=== PATIENT | female | born 1965 | race Caucasian/White ===

== ENCOUNTER 2020-05-22 17:41 | Emergency (ER) | payer OTHER ==
[2020-05-22 20:57] LABS: Absolute Lymphocytes (CBC) 2.2 K/uL (0.7-4.9); Basophils % 0.5 % (0-1.3); Lymphocytes % 23.6 % (15.3-44.8); MPV 8.8 fL (7.6-11.3); RBC Red Blood Cell Count 4.51 M/uL (3.86-4.86)
[2020-05-22 21:12] LABS: Albumin 3.7 g/dL (3.4-5.0); Bilirubin Direct 0.1 mg/dL (0-0.2); Bilirubin Total 0.5 mg/dL (0.2-1.0); Potassium 3.8 mmol/L (3.5-5.1); Protein, Total 7.9 g/dL (6.4-8.2)
[2020-05-22] MEDS ORDERED: MORPHINE 4 MG/ML SYR ONE (21:16)
[2020-05-22] MEDS ORDERED: NA CHLORIDE 0.9% 1,000 ML ONE (21:16)
[2020-05-22] MEDS ORDERED: ONDANSETRON 4 MG/2 ML VIAL ONE (21:16)
[2020-05-22 23:12] LABS: Urine Bacteria <20 /HPF (<20); Urine Mucus 1+ /HPF (NONE SEEN); Urine RBC <5 /HPF (NONE SEEN)
--- NOTE | 2020-05-22 23:28 | ER ---
Nurse's Notes [facility] Name: Mar Finney Age: 55 yrs Sex: Female : 1965 Arrival Date: 05/22/2020 Time: 17:43 Bed 23 Private MD: Diagnosis: Unspecified abdominal pain Presentation: 05/22 17:47 Chief complaint: Patient states: Pain underneath my ribs cage on the R side, radiating ca1 to the back, hurts when I breathe deep. Started this morning. Pain has progressed throughout the day. Denies N/V/D. Denies fever. Reports urinary urgency and frequency. Denies burning with urination. Coronavirus screen: Client denies travel out of the [place] in the last 14 days. At this time, the client does not indicate any symptoms associated with coronavirus-19. Ebola Screen: Patient negative for fever greater than or equal to 101.5 degrees Fahrenheit, and additional compatible Ebola Virus Disease symptoms Patient denies exposure to infectious person. Patient denies travel to an Ebola-affected area in the 21 days before illness onset. No symptoms or risks identified at this time. Initial Sepsis Screen: Does the patient meet any 2 criteria? No. Patient's initial sepsis screen is negative. Does the patient have a suspected source of infection? No. Patient's initial sepsis screen is negative. Risk Assessment: Do you want to hurt yourself or someone else? Patient reports no desire to harm self or others. Onset of symptoms was May 22, 2020. 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 - Social history:: Smoking status: Patient denies any tobacco usage or history of. Screenin:25 Abuse screen: Denies threats or abuse. Nutritional screening: No deficits noted. fu Tuberculosis screening: No symptoms or risk factors identified. Fall Risk None identified. Assessment: 20:10 General: Appears in no apparent distress. Behavior is calm, cooperative, appropriate fu for age, Denies fever, feeling ill, fatigue, chills. Pain: Complains of pain in right lateral anterior chest Pain radiates to back Pain currently is 5 out of 10 on a pain scale. Pain began this morning Aggravated by breathing. Neuro: Level of Consciousness is awake, alert, obeys commands, Oriented to person, place, time, situation, Pathology Supervisor are equal bilaterally Moves all extremities. Gait is steady, Speech is normal, Facial symmetry appears normal. Cardiovascular: Denies lightheadedness, nausea, vomiting, Capillary refill < 3 seconds. Respiratory: Reports pain with respiration. GI: Bowel sounds present X 4 quads. Abd is soft Patient currently denies diarrhea, nausea, vomiting. : No signs and/or symptoms were reported regarding the genitourinary system. EENT: No signs and/or symptoms were reported regarding the EENT system. Derm: No signs and/or symptoms reported regarding the dermatologic system. Musculoskeletal: No signs and/or symptoms reported regarding the musculoskeletal system. Vital Signs: 17:47 BP 183 / 103; Pulse 93; Resp 16 S; Temp 97.6(TE); Pulse Ox 98% on R/A; Weight 135.17 ca1 kg; Height 5 ft. 7 in. (170.18 cm) (R); Pain 5/10; 20:30 BP 151 / 70; Pulse 86; Resp 16; Pulse Ox 98% on R/A; Pain 5/10; fu 21:09 BP 133 / 73; Pulse 86; Resp 16; Pulse Ox 98% on R/A; Pain 5/10; fu 22:00 BP 130 / 64; Pulse 87; Resp 18; Temp 98.1(O); Pulse Ox 99% on R/A; Pain 5/10; fu 23:15 BP 132 / 69; Pulse 82; Resp 16; Pulse Ox 100% on R/A; Pain 2/10; fu 17:47 Body Mass Index 46.67 (135.17 kg, 170.18 cm) ca1 ED Course: 17:43 Patient arrived in ED. ag5 17:50 Triage completed. ca1 17:53 Arm band placed on right wrist. ca1 19:58 Kamaljit Butler RN is Primary Nurse. fu 19:58 Albert Gallardo NP is PHCP. pm1 19:58 Alvaro Hendricks MD is Attending Physician. pm1 20:30 Inserted saline lock: 20 gauge in right forearm, using aseptic technique. Blood fu collected. 20:36 Troponin (emerg Dept Use Only) Sent. fu 20:36 Basic Metabolic Panel Sent. fu 20:37 CBC with Diff Sent. fu 20:37 Hepatic Function Sent. fu 20:37 Lipase Sent. fu 21:25 Patient has correct armband on for positive identification. Bed in low position. Call fu light in reach. Side rails up X2. 21:25 advanced practice nurse on. Pulse ox on. NIBP on. fu 21:55 CT Abd/Pelvis - IV Contrast Only In Process Unspecified. EDMS 22:36 Urine Microscopic Only Sent. fu 23:43 No provider procedures requiring assistance completed. fu 23:43 IV discontinued, bleeding controlled, Pressure dressing applied. fu Administered Medications: 21:11 Drug: Zofran (Ondansetron) 4 mg Route: IVP; Site: right forearm; fu 21:46 Follow up: Response: No adverse reaction fu 21:11 Drug: NS 0.9% 1000 ml Route: IV; Rate: 1000 ml; Site: right forearm; fu 21:18 Drug: morphine 4 mg Route: IVP; Site: right forearm; fu 21:46 Follow up: Response: Pain is decreased fu 23:36 Drug: TORadol - Ketorolac 15 mg Route: IVP; Site: right forearm; fu Outcome: 23:27 Discharge ordered by . pm1 23:51 Discharged to home ambulatory. fu 23:51 Condition: good 23:51 Discharge instructions given to patient, Instructed on discharge instructions, follow up and referral plans. Demonstrated understanding of instructions, follow-up care, Prescriptions given X 1. 23:52 Patient left the ED. fu Signatures: Dispatcher [employer] EDMS Albert Gallardo NP GRIDCAP MACHINE OPERATOR pm1 Kamaljit Butler RN RN fu [place], RN RN ca1 Vicky Cheng ag5 Corrections: (The following items were deleted from the chart) 17:51 17:47 Acuity: TIMA 3 ca1 ca1 21:20 21:19 Inserted saline lock: 20 gauge in right forearm, using aseptic technique. Blood fu collected. fu
--- NOTE | 2020-05-22 23:28 | EDPHYS ---
Physician Documentation [facility] Name: Mar Finney Age: 55 yrs Sex: Female : 1965 Arrival Date: 05/22/2020 Time: 17:43 Bed 23 Private MD: ED Physician Alvaro Hendricks HPI: 05/22 20:06 This 55 yrs old Female presents to ER via Ambulatory with complaints of pm1 Abdominal Pain. 20:06 The patient presents with abdominal pain in the right upper quadrant. Onset: The pm1 symptoms/episode began/occurred this morning. The symptoms radiate to right back. Associated signs and symptoms: Pertinent positives: dysuria, Pertinent negatives: nausea, vomiting, and diarrhea, chest pain, fever, shortness of breath. The symptoms are described as sharp. Modifying factors: the symptoms are aggravated by breathing deeply. Severity of pain: in the emergency department the pain is actually worse. The patient has not experienced similar symptoms in the past. The patient has not recently seen a physician. 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 - Social history:: Smoking status: Patient denies any tobacco usage or history of. ROS: 20:06 Constitutional: Negative for fever, chills, and weight loss, Neck: Negative for injury, pm1 pain, and swelling, Cardiovascular: Negative for chest pain, palpitations, and edema, Respiratory: Negative for shortness of breath, cough, wheezing, and pleuritic chest pain. 20:06 MS/Extremity: Negative for injury and deformity, Skin: Negative for injury, rash, and discoloration. 20:06 Neuro: Negative for headache, weakness, numbness, tingling, and seizure. 20:06 Abdomen/GI: Positive for abdominal pain, of the right upper quadrant, Negative for nausea, vomiting, and diarrhea, constipation. 20:06 : Positive for urinary frequency. Exam: 20:06 Constitutional: This is a well developed, well nourished patient who is awake, alert, pm1 and in no acute distress. Head/Face: Normocephalic, atraumatic. 20:06 Skin: Warm, dry with normal turgor. Normal color with no rashes, no lesions, and no evidence of cellulitis. MS/ Extremity: Pulses equal, no cyanosis. Neurovascular intact. Full, normal range of motion. 20:06 Cardiovascular: Rate: normal, Rhythm: regular, Pulses: no pulse deficits are appreciated. 20:06 Respiratory: Exam negative for acute changes, respiratory distress, shortness of breath. 20:06 Abdomen/GI: Inspection: obese Palpation: soft, in all quadrants, mild abdominal tenderness, in the right upper quadrant. 20:06 Back: pain, that is mild, of the right mid back. 20:06 Neuro: Exam negative for acute changes, Orientation: is normal, Mentation: is normal, Motor: is normal, moves all fours. Vital Signs: 17:47 BP 183 / 103; Pulse 93; Resp 16 S; Temp 97.6(TE); Pulse Ox 98% on R/A; Weight 135.17 ca1 kg; Height 5 ft. 7 in. (170.18 cm) (R); Pain 5/10; 20:30 BP 151 / 70; Pulse 86; Resp 16; Pulse Ox 98% on R/A; Pain 5/10; fu 21:09 BP 133 / 73; Pulse 86; Resp 16; Pulse Ox 98% on R/A; Pain 5/10; fu 22:00 BP 130 / 64; Pulse 87; Resp 18; Temp 98.1(O); Pulse Ox 99% on R/A; Pain 5/10; fu 23:15 BP 132 / 69; Pulse 82; Resp 16; Pulse Ox 100% on R/A; Pain 2/10; fu 17:47 Body Mass Index 46.67 (135.17 kg, 170.18 cm) ca1 MDM: 19:58 Patient medically screened. pm1 23:26 Data reviewed: vital signs. Data interpreted: Pulse oximetry: on room air is 98 %. pm1 Interpretation: normal. Counseling: I had a detailed discussion with the patient and/or guardian regarding: the historical points, exam findings, and any diagnostic results supporting the discharge/admit diagnosis, lab results, radiology results, the need for outpatient follow up, to return to the emergency department if symptoms worsen or persist or if there are any questions or concerns that arise at home. 05/22 19:59 Order name: Basic Metabolic Panel; Complete Time: 21:19 pm05/22 19:59 Order name: CBC with Diff; Complete Time: 21:19 pm05/22 19:59 Order name: Hepatic Function; Complete Time: 21:19 pm05/22 19:59 Order name: Lipase; Complete Time: 21:19 pm05/22 20:08 Order name: Troponin (emerg Dept Use Only); Complete Time: 21:19 pm05/22 22:27 Order name: Urine Microscopic Only; Complete Time: 23:17 pm1 05/22 19:59 Order name: IV Saline Lock; Complete Time: 20:37 pm1 05/22 19:59 Order name: CT Abd/Pelvis - IV Contrast Only pm1 05/22 20:08 Order name: EKG; Complete Time: 20:09 pm05/22 22:35 Order name: Urine Dipstick--Ancillary (enter results); Complete Time: 00:00 tt3 05/22 19:59 Order name: Labs collected and sent; Complete Time: 20:37 pm05/22 20:08 Order name: EKG - Nurse/Tech; Complete Time: 21:18 pm05/22 22:27 Order name: Urine Dipstick-Ancillary (obtain specimen); Complete Time: 22:36 pm1 Administered Medications: 21:11 Drug: Zofran (Ondansetron) 4 mg Route: IVP; Site: right forearm; fu 21:46 Follow up: Response: No adverse reaction fu 21:11 Drug: NS 0.9% 1000 ml Route: IV; Rate: 1000 ml; Site: right forearm; fu 21:18 Drug: morphine 4 mg Route: IVP; Site: right forearm; fu 21:46 Follow up: Response: Pain is decreased fu 23:36 Drug: TORadol - Ketorolac 15 mg Route: IVP; Site: right forearm; fu Disposition: 05/23 07:11 Co-signature as Attending Physician, Alvaro Hendricks MD. 7 Disposition: 05/22/20 23:27 Discharged to Home. Impression: Unspecified abdominal pain. - Condition is Stable. - Discharge Instructions: Abdominal Pain, Adult. - Prescriptions for Bentyl 20 mg Oral Tablet - take 1 tablet by ORAL route every 6 hours As needed; 20 tablet. - Medication Reconciliation Form, Thank You Letter, Antibiotic Education, Prescription Opioid Use form. - Follow up: Emergency Department; When: As needed; Reason: Worsening of condition. Follow up: Private Physician; When: 2 - 3 days; Reason: Recheck today's complaints, Continuance of care, Re-evaluation by your physician. - Problem is new. - Symptoms have improved. Signatures: Dispatcher [employer] EDMS Albert Gallardo NP SOFTWARE SALES CONSULTANT pm1 Kamaljit Butler RN RN Marimar Park RN RN [facility] Alvaro Hendricks MD MD [facility] Corrections: (The following items were deleted from the chart) 05/22 23:52 23:27 05/22/2020 23:27 Discharged to Home. Impression: Unspecified abdominal pain. fu Condition is Stable. Forms are Medication Reconciliation Form, Thank You Letter, Antibiotic Education, Prescription Opioid Use. Follow up: Emergency Department; When: As needed; Reason: Worsening of condition. Follow up: Private Physician; When: 2 - 3 days; Reason: Recheck today's complaints, Continuance of care, Re-evaluation by your physician. Problem is new. Symptoms have improved. pm1
[2020-05-22] MEDS ORDERED: KETOROLAC 30 MG/ML INJ ONE (23:42)
[2020-05-22 23:47] LABS: Urine Blood NEGATIVE (NEG); Urine Glucose NEGATIVE (NEG); Urine Protein NEGATIVE (NEG); Urine Specific Gravity 1.025 (1.005-1.030); Urine pH 5.5 (5.0-7.0)
[2020-05-22 23:57] VITALS: TEMP 97.6; O2SAT 98
[2020-05-22 23:59] VITALS: BP 133/73
--- NOTE | 2020-05-23 07:30 | EKG ---
Test Date: 2020-05-22 Test Time: 21:05:21 Child Advocate: KATHIE MEASUREMENT RESULTS: Intervals: Rate: 84 VT: 154 QRSD: 86 QT: 370 QTc: 437 [place]: P: 30 VT: 154 QRS: 14 T: 18 INTERPRETIVE STATEMENTS: Normal sinus rhythm Normal ECG No previous ECG available for comparison Electronically Signed On 05-23-20 07:29:56 SECURED ENTRANCE MONITOR by Kam Cotton
--- NOTE | 2020-05-23 15:57 | RAD REPORT ---
EXAM DESCRIPTION: CT ABDOMEN AND PELVIS WITH CONTRAST CLINICAL HISTORY: ABD PAIN COMPARISON: Right upper quadrant pain. TECHNIQUE: CT of the abdomen and pelvis performed following IV administration of iodinated contras t. FINDINGS: Lung Bases: The visualized lung bases are clear. Bones: Multilevel degenerative endplate spondylosis and facet arthropathy visualized spine. Abdomen: Liver: The liver has normal size and density. No intrahepatic biliary dilatation. Gallbladder: No calcified gallstones. Spleen, Pancreas, and Adrenal Glands: The spleen, pancreas, and adrenal glands are unremarkable. Kidneys: No hydronephrosis or obstructing calculus. Left peripelvic cysts. Vasculature: The aorta and IVC have normal caliber and position. The portal vein is patent. The pro ximal visceral and renal arteries are patent. Stomach: The stomach and duodenum have normal course. Other: No free intraperitoneal air. No free fluid or lymphadenopathy. Pelvis: Bladder: Urinary bladder is unremarkable. Bowel: No dilated loops of large or small bowel. Moderate amount of stool. Appendix: Normal appendix. Pelvis: Uterus is not enlarged. IMPRESSION: 1. No acute inflammatory or obstructive process identified. This exam was performed according to our departmental dose-optimization program, which includes autom ated exposure control, adjustment of the mA and/or kV according to patient size and/or use of iterati ve reconstruction technique. Electronically signed by: Alli Blunt 05/22/2020 10:31 PM ENTRY LEVEL ADMINISTRATIVE ASSISTANT Due to temporary technical issues with the PACS/Fluency reporting system, reports are being signed by the in house radiologists without review as a courtesy to insure prompt reporting. The interpreting radiologist is fully responsible for the content of the report.
== END 2020-05-22 23:52 | disposition home or self-care (01) ==
LOC: ER 17:41
DX: R10.11 Right upper quadrant pain (principal); I10 Essential (primary) hypertension; J45.909 Unspecified asthma, uncomplicated
CPT/HCPCS: 93005; 85025; 80048; 36415; 80076; 84484; 83690; 74177; 96375; 96374; 99284; Q9967; J7030; J2405; 81003; 81015

== ENCOUNTER 2021-11-12 06:33 | Inpatient (IN) | payer OTHER ==
--- NOTE | 2021-11-12 08:40 | RAD REPORT ---
EXAM DESCRIPTION: RAD - Chest Single View - 11/12/2021 8:20 am CLINICAL HISTORY: Chest pain Chest pain. COMPARISON: No comparisons FINDINGS: Portable technique limits examination quality. The lungs are grossly clear. The heart is mildly prominent in size. No displaced fractures.
[2021-11-12 08:55] LABS: Protime INR 1.01
[2021-11-12 08:58] LABS: Absolute Lymphocytes (CBC) 1.3 K/uL (0.7-4.9); Hematocrit 41.3 % (36.0-45.0); Lymphocytes % 9.9 % (15.3-44.8); MCV 94.7 fL (80-100); MPV 8.4 fL (7.6-11.3); RBC Red Blood Cell Count 4.36 M/uL (3.86-4.86)
[2021-11-12 08:59] LABS: Albumin 3.4 g/dL (3.4-5.0); Bilirubin Direct 0.2 mg/dL (0-0.2); Bilirubin Total 0.5 mg/dL (0.2-1.0); Magnesium 1.9 mg/dL (1.8-2.4); Potassium 3.8 mmol/L (3.5-5.1); Protein, Total 7.1 g/dL (6.4-8.2); Troponin High Sensitivity 3.3 pg/mL (<58.9)
[2021-11-12] MEDS ORDERED: NA CHLORIDE 0.9% 1,000 ML ONE (09:34)
[2021-11-12] MEDS ORDERED: ONDANSETRON 4 MG/2 ML VIAL ONE ×2 (09:59→14:36)
[2021-11-12] MEDS ORDERED: MORPHINE 4 MG/ML SYR ONE ×2 (09:59→10:51)
[2021-11-12] MEDS ORDERED: NA CHLORIDE 0.9% 100 ML ONE (10:12)
[2021-11-12] MEDS ORDERED: PIPERACIL/TAZO 3.375 GM VIAL IV ONE (10:13)
--- NOTE | 2021-11-12 10:29 | RAD REPORT ---
EXAM DESCRIPTION: CTAbdomen Pelvis W Contrast - 11/12/2021 10:06 am CLINICAL HISTORY: Abdominal pain. Abdominal pain, acute, nonlocalized COMPARISON: 05/22/2020 TECHNIQUE: Biphasic CT imaging of the abdomen and pelvis was performed with 100 ml non-ionic IV cont rast. All CT scans are performed using dose optimization technique as appropriate and may include automated exposure control or mA/KV adjustment according to patient size. FINDINGS: The lung bases are clear. The liver, spleen, pancreas, adrenal glands and kidneys are within normal limits. Mild gallbladder di stention. No bowel obstruction, free air, free fluid or abscess. Moderate stool throughout the colon. The appen randy is normal. No evidence of significant lymphadenopathy. No suspicious bony findings. IMPRESSION: No acute intra-abdominal or pelvic finding. Mild gallbladder distention.
--- NOTE | 2021-11-12 10:48 | ER ---
Nurse's Notes [facility] Name: Mar Finney Age: 56 yrs Sex: Female : 1965 Arrival Date: 11/12/2021 Time: 06:36 Bed 18 Private MD: Diagnosis: Epigastric abdominal tenderness;Acute cholecystitis;Other cholelithiasis without obstruction;Elevated white blood cell count;Obesity, unspecified Presentation: 11/12 07:25 Chief complaint: Patient states: Abd pain that began yesterday. After eating dinner, pt ss reports upper abd pain became worse and radiates around to her back. + nausea. Coronavirus screen: Client denies travel out of the [place] in the last 14 days. Ebola Screen: Patient denies exposure to infectious person. Patient denies travel to an Ebola-affected area in the 21 days before illness onset. Initial Sepsis Screen: Does the patient meet any 2 criteria? No. Patient's initial sepsis screen is negative. Does the patient have a suspected source of infection? No. Patient's initial sepsis screen is negative. Risk Assessment: Do you want to hurt yourself or someone else? Patient reports no desire to harm self or others. Onset of symptoms was November 11, 2021. 07:25 Method Of Arrival: Ambulatory ss 07:25 Acuity: TIMA 3 ss Triage Assessment: 14:56 General: Appears in no apparent distress. Behavior is calm, cooperative, appropriate ll1 for age. GI: Abdomen is flat, Bowel sounds present X 4 quads. Reports upper abdominal pain. 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 - Social history:: Smoking status: Patient denies any tobacco usage or history of. - Family history:: not pertinent. Screenin:55 Abuse screen: Denies threats or abuse. Nutritional screening: No deficits noted. ll1 Tuberculosis screening: No symptoms or risk factors identified. Fall Risk Total Fung Fall Scale indicates No Risk (0-24 pts). Assessment: 10:57 Pain: Complains of pain in abdomen Pain radiates to back Pain currently is 7 out of 10 kr3 on a pain scale. 12:00 Reassessment: No changes from previously documented assessment. Patient and/or family ll1 updated on plan of care and expected duration. Pain level reassessed. Patient is alert, oriented x 3, equal unlabored respirations, skin warm/dry/pink. 13:00 Reassessment: No changes from previously documented assessment. Patient and/or family ll1 updated on plan of care and expected duration. Pain level reassessed. Patient is alert, oriented x 3, equal unlabored respirations, skin warm/dry/pink. 14:00 Reassessment: No changes from previously documented assessment. Patient and/or family ll1 updated on plan of care and expected duration. Pain level reassessed. Patient is alert, oriented x 3, equal unlabored respirations, skin warm/dry/pink. 15:00 Reassessment: No changes from previously documented assessment. Patient and/or family ll1 updated on plan of care and expected duration. Pain level reassessed. Patient is alert, oriented x 3, equal unlabored respirations, skin warm/dry/pink. Patient states feeling better. 15:20 GI: kr3 Vital Signs: 07:25 BP 184 / 82; Pulse 63; Resp 17; Temp 97.0(TE); Pulse Ox 100% on R/A; Weight 90.72 kg; ss Height 5 ft. 6 in. (167.64 cm); Pain 9/10; 09:30 BP 182 / 79; Pulse 49; Resp 16; Pulse Ox 100% on R/A; kr3 10:30 BP 180 / 60; Pulse 45; Resp 16; Pulse Ox 99% on R/A; kr3 14:56 BP 158 / 77; Pulse 61; Resp 16; Temp 98.6; Pulse Ox 99% on R/A; Pain 3/10; ll1 07:25 Body Mass Index 32.28 (90.72 kg, 167.64 cm) ED Course: 06:36 Patient arrived in ED. ja2 07:25 Aleksandr Jaffe MD is Attending Physician. tio 07:26 Triage completed. ss 07:26 Arm band placed on right wrist. ss 08:21 XRAY Chest (1 view) In Process Unspecified. EDMS 08:30 Initial lab(s) drawn, by me, sent to lab. COVID swab sent to lab. Inserted saline lock: dh3 20 gauge in left antecubital area, using aseptic technique. Blood collected. 08:40 SARS-COV-2 RT PCR (Document "Date of Onset" if Symptomatic) Sent. 3 09:21 EKG done, by ED staff, reviewed by Aleksandr Jaffe MD. 3 09:24 Patient placed in an exam room, on a stretcher. ll1 09:24 Patient has correct armband on for positive identification. Bed in low position. Call 1 light in reach. Client placed on continuous cardiac and pulse oximetry monitoring. NIBP monitoring applied. site monitor on. 09:31 Tahira Dubon, RN is Primary Nurse. kr3 10:07 CT Abd/Pelvis - IV Contrast Only In Process Unspecified. EDMS 10:46 Aj Atkins is Hospitalizing Provider. [facility] 12:10 US Abdomen Limited In Process Unspecified. EDMS 14:55 No provider procedures requiring assistance completed. Patient admitted, IV remains in ll1 place. Administered Medications: 09:35 Drug: NS 0.9% 500 ml Route: IV; Rate: bolus; Site: left antecubital; kr3 12:10 Follow up: Response: No adverse reaction; IV Status: Completed infusion; IV Intake: ll1 500ml 09:56 Drug: morphine 4 mg Route: IVP; Infused Over: 4 mins; Site: left antecubital; ll1 10:26 Follow up: Response: No adverse reaction; RASS: Alert and Calm (0) kr3 09:57 Drug: Zofran (Ondansetron) 4 mg Route: IVP; Site: left antecubital; ll1 10:27 Follow up: Response: No adverse reaction kr3 10:05 Drug: NS 0.9% 1000 ml Route: IV; Rate: 125 ml/hr; Site: left antecubital; kr3 15:01 Follow up: Response: No adverse reaction; IV Status: Completed infusion; IV Intake: ll1 500ml 10:20 Drug: Zosyn (piperacillin-tazobactam) 3.375 grams Route: IVPB; Infused Over: 60 mins; kr3 Site: left antecubital; 12:03 Follow up: Response: No adverse reaction; IV Status: Completed infusion; IV Intake: kr3 100ml 10:53 Drug: morphine 4 mg Route: IVP; Infused Over: 4 mins; Site: left antecubital; kr3 12:03 Follow up: Response: No adverse reaction; RASS: Alert and Calm (0) kr3 11:58 Drug: Dilaudid (HYDROmorphone) 1 mg Route: IVP; Site: left antecubital; kr3 15:01 Follow up: Response: No adverse reaction; Pain is decreased; RASS: Alert and Calm (0) ll1 Medication: 09:24 VIS not applicable for this client. ll1 Intake: 12:03 IV: 100ml; Total: 100ml. kr3 12:10 IV: 500ml; Total: 600ml. ll1 15:01 IV: 500ml; Total: 1100ml. ll1 Outcome: 10:47 Decision to Hospitalize by Provider. tio 15:23 Admitted to Med/surg accompanied by tech, via wheelchair, room 206, Report called to davidson Miller RN 15:23 Condition: stable 15:23 Instructed on the need for admit. 16:02 Patient left the ED. ll1 Signatures: Dispatcher [employer] EDMS Aleksandr Jaffe MD MD cha Smirch, Shelby, RN RN Alyson Martin 3 Gino Lawson RN RN ll1 Doris Bosch Kelley, RN RN kr3 Corrections: (The following items were deleted from the chart) 11:04 09:15 BP 180 / 60; Pulse 45bpm; Resp 16bpm; Pulse Ox 99% RA; kr3 kr3 11:06 09:15 BP 182 / 79; Pulse 49bpm; Resp 16bpm; Pulse Ox 100% RA; kr3 kr3 15:02 14:56 BP 158 / 77; Pulse 48bpm; Resp 16bpm; Pulse Ox 99% RA; Temp 98.6F; Pain 3/10; ll1 ll1
--- NOTE | 2021-11-12 10:48 | EDPHYS ---
Physician Documentation [facility] Name: Mar Finney Age: 56 yrs Sex: Female : 1965 Arrival Date: 11/12/2021 Time: 06:36 Bed 18 Private MD: ED Physician Aleksandr Jaffe HPI: 11/12 10:00 This 56 yrs old Female presents to ER via Ambulatory with complaints of tio Abdominal Pain, Back Pain, Nausea. 10:00 The patient presents with pain that is acute, with no known mechanism of injury. The tio symptoms are located in the left mid back and right mid back. Onset: The symptoms/episode began/occurred last night. The pain radiates to the left mid back and right mid back. Associated signs and symptoms: Pertinent positives: abdominal pain, vomiting. The problem was sustained from unknown cause. Modifying factors: The patient symptoms are alleviated by nothing, the patient symptoms are aggravated by food. Severity of symptoms: At their worst the symptoms were moderate, in the emergency department the symptoms are unchanged. The patient has not experienced similar symptoms in the past. 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 - Social history:: Smoking status: Patient denies any tobacco usage or history of. - Family history:: not pertinent. ROS: 10:00 Constitutional: Negative for fever, chills, and weight loss, Eyes: Negative for injury, tio pain, redness, and discharge, ENT: Negative for injury, pain, and discharge, Neck: Negative for injury, pain, and swelling, Cardiovascular: Negative for chest pain, palpitations, and edema, Respiratory: Negative for shortness of breath, cough, wheezing, and pleuritic chest pain, Back: Negative for injury and pain, : Negative for injury, bleeding, discharge, and swelling, MS/Extremity: Negative for injury and deformity, Skin: Negative for injury, rash, and discoloration, Neuro: Negative for headache, weakness, numbness, tingling, and seizure, Psych: Negative for depression, anxiety, suicide ideation, homicidal ideation, and hallucinations, Allergy/Immunology: Negative for hives, rash, and allergies, Endocrine: Negative for neck swelling, polydipsia, polyuria, polyphagia, and marked weight changes, Hematologic/Lymphatic: Negative for swollen nodes, abnormal bleeding, and unusual bruising. 10:00 Abdomen/GI: Positive for abdominal pain, of the epigastric area, right upper quadrant and left upper quadrant. Exam: 10:00 Constitutional: This is a well developed, well nourished patient who is awake, alert, tio and in no acute distress. Head/Face: Normocephalic, atraumatic. Eyes: Pupils equal round and reactive to light, extra-ocular motions intact. Lids and lashes normal. Conjunctiva and sclera are non-icteric and not injected. Cornea within normal limits. Periorbital areas with no swelling, redness, or edema. ENT: Nares patent. No nasal discharge, no septal abnormalities noted. Tympanic membranes are normal and external auditory canals are clear. Oropharynx with no redness, swelling, or masses, exudates, or evidence of obstruction, uvula midline. Mucous membranes moist. Neck: Trachea midline, no thyromegaly or masses palpated, and no cervical lymphadenopathy. Supple, full range of motion without nuchal rigidity, or vertebral point tenderness. No Meningismus. Chest/axilla: Normal chest wall appearance and motion. Nontender with no deformity. No lesions are appreciated. Cardiovascular: Regular rate and rhythm with a normal S1 and S2. No gallops, murmurs, or rubs. Normal PMI, no JVD. No pulse deficits. Respiratory: Lungs have equal breath sounds bilaterally, clear to auscultation and percussion. No rales, rhonchi or wheezes noted. No increased work of breathing, no retractions or nasal flaring. Back: No spinal tenderness. No costovertebral tenderness. Full range of motion. Skin: Warm, dry with normal turgor. Normal color with no rashes, no lesions, and no evidence of cellulitis. MS/ Extremity: Pulses equal, no cyanosis. Neurovascular intact. Full, normal range of motion. Neuro: Awake and alert, GCS 15, oriented to person, place, time, and situation. Cranial nerves II-XII grossly intact. Motor strength 5/5 in all extremities. Sensory grossly intact. Cerebellar exam normal. Normal gait. Psych: Awake, alert, with orientation to person, place and time. Behavior, mood, and affect are within normal limits. 10:00 ECG was reviewed by the Attending Physician. 10:00 Abdomen/GI: Inspection: abdomen appears normal, Bowel sounds: active, all quadrants, Palpation: mild abdominal tenderness, in the epigastric area, right upper quadrant and left upper quadrant, moderate abdominal tenderness, Liver: no appreciated palpable abnormalities, Hernia: not appreciated. Vital Signs: 07:25 BP 184 / 82; Pulse 63; Resp 17; Temp 97.0(TE); Pulse Ox 100% on R/A; Weight 90.72 kg; ss Height 5 ft. 6 in. (167.64 cm); Pain 9/10; 09:30 BP 182 / 79; Pulse 49; Resp 16; Pulse Ox 100% on R/A; kr3 10:30 BP 180 / 60; Pulse 45; Resp 16; Pulse Ox 99% on R/A; kr3 14:56 BP 158 / 77; Pulse 61; Resp 16; Temp 98.6; Pulse Ox 99% on R/A; Pain 3/10; ll1 07:25 Body Mass Index 32.28 (90.72 kg, 167.64 cm) ss MDM: 07:25 Patient medically screened. [facility] 10:03 Data reviewed: vital signs, nurses notes, lab test result(s), EKG, radiologic studies, [facility] CT scan, plain films, ultrasound. Data interpreted: monitor tech: rate is 63 beats/min, rhythm is regular, Pulse oximetry: is not applicable for this patient encounter. on room air is 100 %. Test interpretation: by ED physician or midlevel provider: ECG, plain radiologic studies. Counseling: I had a detailed discussion with the patient and/or guardian regarding: the historical points, exam findings, and any diagnostic results supporting the discharge/admit diagnosis, lab results, radiology results. 11/12 07:27 Order name: Basic Metabolic Panel; Complete Time: :35 [facility] 11/12 07:27 Order name: CBC with Diff; Complete Time: :35 [facility] 11/12 07:27 Order name: LFT's; Complete Time: :35 [facility] 11/12 07:27 Order name: Magnesium; Complete Time: :35 [facility] 11/12 07:27 Order name: NT PRO-BNP; Complete Time: :35 11/12 07:27 Order name: PT-INR; Complete Time: 09:35 11/12 07:27 Order name: Troponin HS; Complete Time: 09:35 11/12 07:27 Order name: XRAY Chest (1 view); Complete Time: 09:35 11/12 07:27 Order name: Lipase; Complete Time: 09:35 11/12 07:27 Order name: SARS-COV-2 RT PCR (Document "Date of Onset" if Symptomatic); Complete Time: :11/12 09:36 Order name: CT Abd/Pelvis - IV Contrast Only; Complete Time: 10:44 11/12 09:55 Order name: US Abdomen Limited 11/12 07:27 Order name: EKG; Complete Time: 07:28 11/12 07:27 Order name: Cardiac monitoring; Complete Time: 09:21 11/12 07:27 Order name: EKG - Nurse/Tech; Complete Time: 09:21 11/12 07:27 Order name: IV Saline Lock; Complete Time: 08:40 11/12 07:27 Order name: Labs collected and sent; Complete Time: 08:40 11/12 07:27 Order name: O2 Per Protocol; Complete Time: 09:21 11/12 07:27 Order name: O2 Sat Monitoring; Complete Time: 09:21 11/12 13:00 Order name: Diet - Ice Chips ; Complete Time: 13:14 EDMS EC:00 Rate is 44 beats/min. Rhythm is regular. QRS [place] is Normal. CA interval is normal. QRS tio interval is normal. QT interval is normal. No Q waves. T waves are Normal. No ST changes noted. Clinical impression: Sinus bradycardia. Interpreted by me. Reviewed by me. Administered Medications: 09:35 Drug: NS 0.9% 500 ml Route: IV; Rate: bolus; Site: left antecubital; kr3 12:10 Follow up: Response: No adverse reaction; IV Status: Completed infusion; IV Intake: ll1 500ml 09:56 Drug: morphine 4 mg Route: IVP; Infused Over: 4 mins; Site: left antecubital; ll1 10:26 Follow up: Response: No adverse reaction; RASS: Alert and Calm (0) kr3 09:57 Drug: Zofran (Ondansetron) 4 mg Route: IVP; Site: left antecubital; ll1 10:27 Follow up: Response: No adverse reaction kr3 10:05 Drug: NS 0.9% 1000 ml Route: IV; Rate: 125 ml/hr; Site: left antecubital; kr3 15:01 Follow up: Response: No adverse reaction; IV Status: Completed infusion; IV Intake: ll1 500ml 10:20 Drug: Zosyn (piperacillin-tazobactam) 3.375 grams Route: IVPB; Infused Over: 60 mins; kr3 Site: left antecubital; 12:03 Follow up: Response: No adverse reaction; IV Status: Completed infusion; IV Intake: kr3 100ml 10:53 Drug: morphine 4 mg Route: IVP; Infused Over: 4 mins; Site: left antecubital; kr3 12:03 Follow up: Response: No adverse reaction; RASS: Alert and Calm (0) kr3 11:58 Drug: Dilaudid (HYDROmorphone) 1 mg Route: IVP; Site: left antecubital; kr3 15:01 Follow up: Response: No adverse reaction; Pain is decreased; RASS: Alert and Calm (0) ll1 Disposition Summary: 11/12/21 10:47 Hospitalization Ordered Hospitalization Status: Observation tio Provider: Aj Atkins cha Location: Telemetry/MedSurg (observation) tio Condition: Fair tio Problem: new tio Symptoms: have improved tio Bed/Room Type: Standard [facility] Room Assignment: 206(11/12/21 14:45) dw Diagnosis - Epigastric abdominal tenderness tio - Acute cholecystitis tio - Other cholelithiasis without obstruction tio - Elevated white blood cell count tio - Obesity, unspecified tio Forms: - Medication Reconciliation Form tio - SBAR form tio Signatures: Dispatcher [employer] Lulú Ng RN RN dw Anderson, Corey, MD MD cha Smirch, Shelby, RN RN ss Hall, Patricia, RN RN ph Lewis, Lynsay, RN RN ll1 Tahira Dubon RN RN kr3 Corrections: (The following items were deleted from the chart) 14:45 10:47 tio dw
[2021-11-12] MEDS ORDERED: HYDROMORPHONE HCL 1 MG/ML INJ ONE ×2 (11:50→14:35)
--- NOTE | 2021-11-12 12:17 | RAD REPORT ---
EXAM DESCRIPTION: US - Abdomen Exam Limited - 11/12/2021 12:08 pm CLINICAL HISTORY: ABD PAIN COMPARISON: No comparisons FINDINGS: The gallbladder demonstrates small shadowing stones. No pericholecystic fluid or gallbladd er wall thickening. The common bile duct is normal measuring 6 mm. The liver demonstrates no findings of intrahepatic biliary dilatation. IMPRESSION: Cholelithiasis.
--- NOTE | 2021-11-12 13:07 | P.HP ---
Certification for Inpatient Patient admitted to: Inpatient With expected LOS: >2 Midnights Practitioner: I am a practitioner with admitting privileges, knowledge of patient current condition, hospital course, and medical plan of care. Services: Services provided to patient in accordance with Admission requirements found in Title 42 Section 412.3 of the Code of Federal Regulations Patient History Date of Service: 11/12/21 Reason for admission: Abdominal pain History of Present Illness: 56-year-old woman with a history of hypertension, asthma and allergy presented to the emergency department with a complaint of abdominal pain, located in epigastrium, radiating across the anterior abdomen to the back, started 30 minutes after eating steak last night, associated nausea but no vomiting. Patient described as severe abdominal pain, no associated fever, normal relieving factors. CT abdomen and pelvis done in the emergency department demonstrated mildly dilated gallbladder, no stones identified. US abdomen is done and the result is pending. No elevated LFTs. Patient's symptoms suggests acute cholecystitis. General surgery Dr. Lu contacted who evaluated patient in the ED. She is hospitalized for further management. - Past Medical/Surgical History -: Hypertension -: Asthma -: Obesity -: section - Family History Mother -: Cancer (Breast) - Social History Smoking Status: Never smoker Alcohol use: Yes CD- Drugs: No Place of Residence: Home Review of Systems Other: Except as documented, all other systems reviewed and negative. Physical Examination - Physical Exam General: Alert, In no apparent distress, Oriented x3 HEENT: Normocephalic, PERRLA, Mucous membr. moist/pink, EOMI, Sclerae nonicteric Neck: Supple, JVD not distended Respiratory: Clear to auscultation bilaterally, Normal air movement Cardiovascular: No edema, Regular rate/rhythm, Normal S1 S2, No murmurs Capillary refill: <2 Seconds Gastrointestinal: Normal bowel sounds, Non-distended, No rebound, No guarding, Tenderness (Right upper quadrant) Musculoskeletal: No swelling, No tenderness Integumentary: No rashes, No erythema, No cyanosis Neurological: Normal strength at 5/5 x4 extr, Cranial nerves 3-12 intact Lymphatics: No axilla or inguinal lymphadenopathy - Studies Laboratory Data (last 24 hrs) 11/12/21 08:30: PT 11.1, INR 1.01 11/12/21 08:30: WBC 13.3 H, Hgb 13.7, Hct 41.3, Plt Count 294 11/12/21 08:30: Sodium 138, Potassium 3.8, BUN 19 H, Creatinine 0.74, Glucose 137 H, Magnesium 1.9, Total Bilirubin 0.5, AST 13 L, ALT 24, Alkaline Phosphatase 65, Lipase 106 Assessment and Plan - Problems (Diagnosis) (1) Abdominal pain Current Visit: Yes Status: Acute (2) Hypertension Current Visit: Yes Status: Resolved (3) History of asthma Current Visit: Yes Status: Acute - Plan Admit to the medical floor. Patient symptoms suggest acute cholecystitis. Awaiting abdominal ultrasound final report. General surgery consulted, patient seen by Dr. Lu who is considering lap cholecystectomy. Start IV Zosyn Pain management as needed Antiemetics as needed. Monitor CBC to follow leukocytosis Monitor and correct electrolyte. Ice chips and sips today, n.p.o. at midnight by Dr. Lu. Reconcile and continue home antihypertensives. Hold progesterone. SCD for DVT prophylaxis. - Advance Directives Does patient have a Living Will: No Does patient have a Durable POA for Healthcare: No
--- NOTE | 2021-11-12 13:45 | CON ---
Date of Consultation: 11/12/2021 Diagnoses: Acute cholecystitis, symptomatic cholelithiasis, right upper quadrant abdominal pain. History Of Present Illness: This is the case of a 56-year-old patient, who comes to the ER today com plaining of epigastric right upper quadrant pain radiating to the back, associated with nausea and vo miting. She stated that she was eating some steak that made for her yesterday. There is nob henry else sick at home. No recent traveling out of the country. No dysuria, hematuria, hematochezia, or melena. She stated that she has never had this pain before. Allergies: NONE. Past Medical History: Asthma and hypertension. Past Surgical History: Knee surgery. Social History: She does not smoke. She does not drink alcohol. Family History: Noncontributory. Review of Systems: See H and P. Ten points otherwise unremarkable. Physical Examination: General: The patient is awake, alert. HEENT: Pupils are equal and reactive. Anicteric. Neck: Supple. Chest: Clear. Abdomen: Epigastric right upper quadrant tenderness. Breasts: Deferred. Rectal: Deferred. Pelvic: Deferred. Extremities: Good capillary refill. Laboratory Data: Blood work shows WBC count of 13.3, hemoglobin of 13.7. INR is 1.01. BUN is 19, b icarb 25, potassium is 3.8, total bilirubin of 0.5, lipase 106. The patient had a CAT scan of the ab domen and pelvis, interpreted by Dr. Avendaño as no acute intraabdominal pelvic findings, mild gallbladde r distention. Then, the patient has an ultrasound just done a few minutes ago and it shows cholelith iasis. Assessment: It is a 56-year-old patient with Jones sign positive, epigastric right upper quadrant p ain with cholelithiasis, postprandial. The patient will be admitted to the hospital. I gave her ant ibiotics and pain control. We offered her options of laparoscopic possible open cholecystectomy once the medical evaluation is obtained with benefits, alternatives, and risks including, but not limited to infection, bleeding, damage to adjacent structures, anesthesia complication, choledocholithiasis, bile leak, pancreatitis, AL, and even . She also understands this may not relieve any symptoms . She might need more than one surgical intervention. She understood and will think overnight about the possibility of having surgery before she leaves this hospital. Once we did get a consent, we wi ll proceed accordingly. She understands the importance also of losing weight. Also, she understands the importance of colonoscopies. TEQUILA/CISCO Voice ID: [id number] Report ID: [id number]
[2021-11-12 14:19] VITALS: BMI 31.9
[2021-11-12] MEDS: ONDANSETRON 4 MG/2 ML VIAL IV PRN (14:40)
[2021-11-12] MEDS: HYDROMORPHONE HCL 1 MG/ML INJ IV PRN ×3 (14:42→22:53)
[2021-11-12] MEDS: D5 0.9 NS 1,000 ML IV SCH (16:17)
[2021-11-12] MEDS: PIPER TAZO 3.375 GM in NA CHLORIDE 0.9% 100 ML IV SCH (16:18)
[2021-11-12 18:03] LABS: Specific Gravity >= 1.030 (1.005-1.030); Urine Bilirubin Negative (Negative); Urine Blood Trace-intact (Negative); Urine Clarity Clear (Clear); Urine Color Yellow (Yellow); Urine Glucose Negative (Negative); Urine Protein Negative (Negative); Urine pH 5.5 (5.0-7.0)
[2021-11-12 18:10] LABS: Urine Bacteria <20 /HPF (<20); Urine Mucus 1+ /HPF (None Seen); Urine RBC <5 /HPF (None Seen)
[2021-11-13] MEDS: PIPER TAZO 3.375 GM in NA CHLORIDE 0.9% 100 ML IV SCH ×3 (00:05→16:00)
[2021-11-13] MEDS: D5 0.9 NS 1,000 ML IV SCH ×3 (00:15→20:01)
[2021-11-13 04:29] LABS: Absolute Lymphocytes (CBC) 1.4 K/uL (0.7-4.9); Hematocrit 38.5 % (36.0-45.0); Lymphocytes % 10.3 % (15.3-44.8); MCV 95.3 fL (80-100); MPV 8.4 fL (7.6-11.3); RBC Red Blood Cell Count 4.05 M/uL (3.86-4.86)
[2021-11-13] MEDS: HYDROMORPHONE HCL 1 MG/ML INJ IV PRN ×2 (04:41→08:35)
[2021-11-13 04:45] LABS: Bilirubin Total 1.7 mg/dL (0.2-1.0); Magnesium 1.7 mg/dL (1.8-2.4); Phosphorus 2.1 mg/dL (2.5-4.9); Potassium 3.5 mmol/L (3.5-5.1); Protein, Total 6.5 g/dL (6.4-8.2)
[2021-11-13] MEDS ORDERED: MAGNESIUM SULFATE 1 gm IVPB 1 GM/100 ML BAG IV ONE (08:00)
[2021-11-13] MEDS ORDERED: POTASSIUM PHOS 22 MEQ in NA CHLORIDE 0.9% 250 ML IV ONE (09:00)
[2021-11-13] MEDS ORDERED: POTASSIUM PHOS IN 0.9 % NACL 15 MMOL/250 ML BAG IV ONE (09:00)
[2021-11-13] MEDS: ONDANSETRON 4 MG/2 ML VIAL IV PRN (11:13)
[2021-11-13] MEDS ORDERED: ONDANSETRON 4 MG/2 ML VIAL ONE ×2 (11:17→11:37)
[2021-11-13] MEDS ORDERED: BUPIVACAINE 0.5% PF 10 ML VIAL ONE ×2 (11:29→11:30)
[2021-11-13] MEDS ORDERED: Ringers Lactate 1,000 ML IV ONE (11:30)
[2021-11-13] MEDS ORDERED: propofoL 200 MG/20 ML VIAL IV ONE (11:35)
[2021-11-13] MEDS ORDERED: FENTANYL CITR 100 MCG/2 ML ONE (11:36)
[2021-11-13] MEDS ORDERED: MIDAZOLAM HCL 2 MG/2 ML INJ ONE ×2 (11:36→13:02)
[2021-11-13] MEDS ORDERED: LIDOCAINE 1% MPF 2 ML AMPULE ONE (11:37)
[2021-11-13] MEDS ORDERED: ROCURONIUM 50 MG/5 ML VIAL IV ONE (11:37)
--- NOTE | 2021-11-13 11:38 | RAD REPORT ---
EXAM DESCRIPTION: MRI - Cholangiogram - 11/13/2021 11:01 am CLINICAL HISTORY: Cholelithiasis, right upper quadrant pain COMPARISON: Ultrasound 11/12/2021, CT study 11/12/2021 TECHNIQUE: Axial and coronal heavily T2 weighted sequences were obtained. Coronal T2 HASTE fat satur ation static and coronal multiplane reconstruction imaging generated and reviewed. Horizontal and enid tical axis rotational views obtained using maximum intensity projection (MIP) protocol. FINDINGS: Well filled gallbladder is noted. The small gallstone seen at sonography are difficult to identify on the MRCP examination. Extrahepatic biliary tree is dilated to 9 mm. Intrahepatic mild dilatation noted as well. No common d uct stone identifiable. No intrinsic stricture, mass or web is seen. Pancreatic duct in the head of t he pancreas is prominent with no mass or filling defect identifiable. IMPRESSION: Biliary tree dilatation the 9 mm with no duct stone identifiable.
--- NOTE | 2021-11-13 12:29 | P.BOP ---
Preoperative diagnosis: acute cholecystitis, symptomatic cholelithiasis, increased liver enzymes, Postoperative diagnosis: same Primary procedure: Laparoscopic cholecystectomy Wealth Management Advisor: Rhonda Monteiro) Estimated blood loss: <20cc Specimen: gb Findings: inflammed gallbladder wall Anesthesia: General Complications: None Drain(s): JOSEPH drain Transferred to: Recovery Room Condition: Good
[2021-11-13] MEDS ORDERED: KETOROLAC 30 MG/ML INJ ONE (12:38)
[2021-11-13] MEDS ORDERED: NEOSTIGMINE 1 MG/ML -10 ML VIAL ONE (12:39)
[2021-11-13] MEDS ORDERED: GLYCOPYRROLATE 0.2 MG/ML SYR ONE (12:39)
--- NOTE | 2021-11-13 12:43 | EKG ---
Test Date: 2021-11-12 Test Time: 09:17:28 Abstract Maker: SCOTT MEASUREMENT RESULTS: Intervals: Rate: 44 NM: 140 QRSD: 76 QT: 458 QTc: 391 [place]: P: 36 NM: 140 QRS: 50 T: 67 INTERPRETIVE STATEMENTS: Marked sinus bradycardia Junctional ST depression, probably normal Abnormal ECG Compared to ECG 05/22/2020 21:05:21 ST (T wave) deviation now present Sinus rhythm no longer present Electronically Signed On 11-13-21 12:40:23 CDT by Darin Nelson
[2021-11-13] MEDS ORDERED: ALBUTEROL 2.5 MG/3 ML NEB SOL ONE ×2 (12:58→13:40)
[2021-11-13] MEDS ORDERED: HALOPERIDOL LACT 5 MG/ML INJ IM PRN (13:09)
[2021-11-13] MEDS: HYDROMORPHONE HCL 1 MG/ML INJ ONE ×2 (13:37→13:52)
--- NOTE | 2021-11-13 14:30 | P.PN ---
Subjective Date of Service: 11/13/21 Chief Complaint: Abdominal pain Patient complaining of right upper quadrant abdominal pain this morning. Liver enzymes and bilirubin trended up from yesterday. Physical Examination - Vital Signs Temperature: 98.1 F Blood Pressure: 136/60 Pulse: 66 Respirations: 16 Pulse Ox (%): 99 - Physical Exam General: Alert, In no apparent distress, Oriented x3 HEENT: Mucous membr. moist/pink, Sclerae nonicteric Neck: Supple, JVD not distended Respiratory: Clear to auscultation bilaterally, Normal air movement Cardiovascular: No edema, Regular rate/rhythm, Normal S1 S2 Gastrointestinal: Normal bowel sounds, Soft and benign, Tenderness (Right upper quadrant) Musculoskeletal: No swelling Integumentary: No rashes Neurological: Normal strength at 5/5 x4 extr Assessment And Plan - Current Problems (Diagnosis) (1) Abdominal pain Current Visit: Yes Status: Acute (2) Hypertension Current Visit: Yes Status: Resolved (3) History of asthma Current Visit: Yes Status: Acute (4) Acute cholecystitis Current Visit: Yes Status: Acute (5) Elevated liver enzymes Current Visit: Yes Status: Acute - Plan Right upper quadrant sonogram demonstrated cholelithiasis. Patient's LFT trended up awaiting. MRCP done today shows no CBD stone. Lap cholecystectomy performed today by Dr. Lu. Post op diagnosis is inflamed gallbladder. Current IV Zosyn Pain management as needed Antiemetics as needed. Monitor CBC to follow leukocytosis Monitor and correct electrolyte. Diet per Dr. Lu.
[2021-11-13] MEDS: HYDROCODONE/APAP 5/325 MG TAB PO PRN ×3 (15:57→23:47)
--- NOTE | 2021-11-14 00:12 | OP ---
Date of Procedure: 11/13/2021 Surgeon: Miguelito Lu MD Air Brake Rigger: SHAKIRA Westfall Preoperative Diagnoses: Acute cholecystitis, symptomatic cholelithiasis, increased liver enzymes, st atus post magnetic resonance cholangiopancreatography, intractable abdominal pain. Postoperative Diagnoses: Acute cholecystitis, symptomatic cholelithiasis, increased liver enzymes, s tatus post magnetic resonance cholangiopancreatography, intractable abdominal pain. Procedure: Laparoscopic cholecystectomy. Estimated Blood Loss: Less than 20 cc. Specimen: Gallbladder. Finding: Inflamed gallbladder wall with thickening, distended, consistent with acute cholecystitis. Anesthesia: General plus local. Drains: JOSEPH #10. Indication: This is a case of a 56-year-old patient who comes to us with intractable abdominal pain, diagnosed with acute cholecystitis, symptomatic cholelithiasis, increased liver enzymes. Jones sig n positive. MRCP was done, discussed with Dr. Morrow. No stones seen in the common bile duct. The patient was fully explained the benefits, alternatives, and risks of laparoscopic, possible open cho lecystectomy, which include, but not limited to, infection, bleeding, damage to adjacent structures, anesthesia complication, choledocholithiasis, bile leak, pancreatitis, [place], and even . She also understands this may not relieve any symptoms. She might need more than one surgical intervention. She understood and signed the consent. She understands that in the next few days, we are going to be watching for liver function tests and we have questions about this. She might need an ERCP. She un derstood. The patient wants to have surgery done during this admission. Procedure In Detail: The patient was brought to the operating room, placed in supine position. Anes thesia was done without complication. Abdominal area was prepped and draped in a sterile fashion. M arcaine 0.5% was injected for local anesthetic, followed by sharp incision of the skin in the periumb ilical region. Incision was carried down to the fascia, which was opened under direct vision. Perit oneum was encountered, opened under direct vision. Vicryl #1 was placed inside the fascia. Meena t rocar was carefully introduced. Pneumoperitoneum was obtained. I placed 3 more trocars, 5 mm each o ne of them; 1 in epigastric area and 2 in the right upper quadrant. This allowed me to visualize the area of the gallbladder, looked very distended, thickening. We needed to deflate this before contin uing, so we put an Endo needle under direct visualization on the fundus of the gallbladder and aspira matilda under direct visualization. Needle was removed. Once again under direct visualization, a graspe r was placed in the fundus of the gallbladder, another grasper in the infundibulum, retracting the ga llbladder in the inferolateral fashion exposing the triangle of [place]. The cystic duct and cystic ar ileana were clearly isolated and freed circumferentially, and a connection between those and the gallbl adder was clearly identified. This was after obtaining critical view. Once again, cystic duct and c ystic artery were clearly identified and ligated with at least 3 clips proximal and 1 clip distal, li leslie in middle. Same was done with the cystic artery. No bile leak. No bleeding. The gallbladde r was removed from liver using Bovie cauterizer and removed from abdominal cavity using EndoCatch thr ough umbilical incision. The area was inspected once again. No bile leak. No bleeding. This patie nt has a very thick gallbladder wall with cholecystitis, pericholecystic fluid, so I left a JOSEPH drain over the gallbladder foci, exiting through one of the trocar sites, securing that in place with 3-0 n ylon. At that moment, I proceeded to remove the trocars under direct vision, deflated the pneumoperi toneum, closed the fascia with #1 Vicryl, irrigated the subcutaneous tissue, closed that with 3-0 chr omic and then the skin with cassius. JOSEPH was connected to bulb suction. The patient tolerated procedure well. The patient on her way to recovery in stable condition. TEQUILA/CISCO Voice ID: [id number] Report ID: [id number]
[2021-11-14] MEDS: PIPER TAZO 3.375 GM in NA CHLORIDE 0.9% 100 ML IV SCH ×2 (01:11→08:34)
[2021-11-14 02:22] VITALS: O2SAT 99
[2021-11-14] MEDS: HYDROCODONE/APAP 5/325 MG TAB PO PRN ×2 (04:36→08:40)
[2021-11-14 05:54] LABS: Absolute Lymphocytes (CBC) 0.9 K/uL (0.7-4.9); Lymphocytes % 8.1 % (15.3-44.8); MCV 95.7 fL (80-100); MPV 8.5 fL (7.6-11.3); RBC Red Blood Cell Count 3.86 M/uL (3.86-4.86)
[2021-11-14 05:56] LABS: Albumin 2.6 g/dL (3.4-5.0); Bilirubin Direct 0.2 mg/dL (0-0.2); Bilirubin Total 0.8 mg/dL (0.2-1.0); Phosphorus 1.9 mg/dL (2.5-4.9); Potassium 3.5 mmol/L (3.5-5.1); Protein, Total 6.1 g/dL (6.4-8.2)
[2021-11-14] MEDS: D5 0.9 NS 1,000 ML IV SCH ×2 (06:15→06:39)
[2021-11-14] MEDS ORDERED: MAGNESIUM OXIDE 400 MG TAB PO ONE (07:33)
[2021-11-14] MEDS: POTASS/SODIUM PHOSPHATE 1 PKT POWD.PACK PO SCH ×3 (08:31→09:03)
[2021-11-14] MEDS ORDERED: hydroCHLOROthiazide 25 MG TAB PO SCH (09:00)
[2021-11-14] MEDS ORDERED: POTASSIUM CL SA 10 MEQ TAB PO ONE (09:00)
[2021-11-14] MEDS ORDERED: PANTOPRAZOLE 40MG TABLET PO SCH (09:00)
--- NOTE | 2021-11-14 10:48 | P.DS ---
Admission Date: 11/12/21 Discharge Date: 11/14/21 Disposition: ROUTINE DISCHARGE Discharge Condition: GOOD Reason for Admission: acute cholecystitis Consultations: General Surgery - Dr. Lu Brief History of Present Illness: 56yo F, PMH: HTN, asthma Presented to ED with epigastric and RUQ abdominal pain, radiating towards her back. Occurred ~30min after eating dinner. Workup in ED consistent with acute cholecystitis. Hospital Course: Problem List Acute cholecystitis HTN h/o Asthma Patient was found to have acute cholecystitis and underwent laparoscopic cholecystectomy with JOSEPH drain placement by Dr. Lu. She had continued improvement post-operatively. Discharged home with 7 more days of antibiotics (Augmentin), and pain medication. She has been instructed on JOSEPH drain care. Follow up with Dr. Lu this Saturday in his office. Vital Signs/Physical Exam: Temp Pulse Resp BP Pulse Ox 97.3 F 73 17 116/59 L 100 11/14/21 08:00 11/14/21 08:00 11/14/21 09:40 11/14/21 08:00 11/14/21 09:40 General: Alert, In no apparent distress, Oriented x3 HEENT: EOMI, Sclerae nonicteric Neck: Supple, No LAD Respiratory: Clear to auscultation bilaterally, Normal air movement Cardiovascular: No edema, Regular rate/rhythm Gastrointestinal: Soft and benign, Non-distended, Other (JOSEPH drain in place ), Tenderness (mild RUQ and RLQ - near JOSEPH drain site) Integumentary: No erythema Neurological: Normal speech, Normal affect Laboratory Data at Discharge: WBC 11.4 K/uL (4.3-10.9) H D 11/14/21 05:17 Hgb 12.3 g/dL (12.0-15.0) 11/14/21 05:17 Hct 37.0 % (36.0-45.0) 11/14/21 05:17 Plt Count 236 K/uL (152-406) 11/14/21 05:17 PT 11.1 SECONDS (9.5-12.5) 11/12/21 08:30 INR 1.01 11/12/21 08:30 Sodium 140 mmol/L (136-145) 11/14/21 05:17 Potassium 3.5 mmol/L (3.5-5.1) 11/14/21 05:17 BUN 4 mg/dL (7-18) L 11/14/21 05:17 Creatinine 0.58 mg/dL (0.55-1.3) 11/14/21 05:17 Glucose 128 mg/dL (74-106) H 11/14/21 05:17 Phosphorus 1.9 mg/dL (2.5-4.9) L 11/14/21 05:17 Magnesium 1.7 mg/dL (1.8-2.4) L 11/13/21 04:04 Total Bilirubin 0.8 mg/dL (0.2-1.0) 11/14/21 05:17 AST 41 U/L (15-37) H 11/14/21 05:17 ALT 82 U/L (12-78) H 11/14/21 05:17 Alkaline Phosphatase 65 U/L (45-117) 11/14/21 05:17 Triglycerides 65 mg/dL (<150) 11/13/21 04:04 Cholesterol 147 mg/dL (<200) 11/13/21 04:04 HDL Cholesterol 61 mg/dL (40-60) H 11/13/21 04:04 Cholesterol/HDL Ratio 2.41 11/13/21 04:04 Lipase 106 U/L (73-393) 11/12/21 08:30 Home Medications: Pantoprazole [Protonix Tab*] 1 tab PO DAILY 11/12/21 Progesterone,Micronized [Prometrium] 800 mg PO DAILY 11/12/21 hydroCHLOROthiazide [Hydrochlorothiazide] 25 mg PO DAILY 11/12/21 Amox/Clavulanate [Augmentin 875-125 Tab] 1 tab PO BID 7 Days #14 tab 11/14/21 Hydrocodone 5/APAP 325 [Godwin 5/325] 1 tab PO Q8H PRN #15 tab 11/14/21 New Medications: Amox/Clavulanate [Augmentin 875-125 Tab] 1 tab PO BID 7 Days #14 tab Hydrocodone 5/APAP 325 [Godwin 5/325] 1 tab PO Q8H PRN #15 tab PRN Reason: Pain Physician Discharge Instructions: Patient was found to have acute cholecystitis and underwent laparoscopic cholecystectomy with JOSEPH drain placement by Dr. Lu. She had continued improvement post-operatively. Discharged home with 7 more days of antibiotics (Augmentin), and pain medication. She has been instructed on JOSEPH drain care. Follow up with Dr. Lu this Saturday in his office. Followup: Dwight Nicholas MD [Primary Care Provider] - Time spent managing pt's care (in minutes): 45
[2021-11-14 13:41] VITALS: BP 127/60; TEMP 98
--- OUTSIDE RECORDS SUMMARY | 2021-11-16 10:06 | XMS REPORT | Continuity of Care Document ---
:1965 Author Organization [facility] [place] t Address [address] [place] [address] Care Team Providers Name Role Phone Dylon Sykes MD Primary Care Physician MARCELO VICENTE Attending Clinician Unavailable JENNIFER Attending Clinician Unavailable Dylon Sykes MD Attending Clinician Doctor Unassigned, Name Attending Clinician Unavailable CARO Attending Clinician Unavailable RAMAN Attending Clinician Unavailable Jayme BRAND Attending Clinician Provider, Urgent Care Attending Clinician Unavailable RENITA Attending Clinician Unavailable Christopher ALVAREZ Attending Clinician Unavailable Marcelo Vicente MD Attending Clinician Hipolito KEBEDE Attending Clinician Unavailable DYLON SYKES Attending Clinician Unavailable MAGDALENE Attending Clinician Unavailable MARCELO VICENTE Admitting Clinician Unavailable JENNIFER Admitting Clinician Unavailable Payers Payer Name Policy Type Policy Number Effective Date Expiration Date S henrietta RODAS BCBS BLUE [id number] 2020 ADVANTAGE HMO 00:00:00 Problems Condition Condition Condition Status Onset Resolution Last Treating Co mments Source Name Details Category Date Date Treatment Clinician Date Screening Screening Disease Active 2019-04 Overview: Univers for for 05-02 Formattin ity of colorectal colorectal 00:00: g of this [place] cancer cancer 00 note Medical might be Branch different from the original. Added automatic ally from request for surgery [id number] Morbid Morbid Disease Active 2019-04 Univers obesity obesity 0-20 [place] of with [place] mass [place] mass index 00 Me dical of of Branch 40.0-49.9 40.0-49.9 Acquired Acquired Disease Active Unive rs hypothyroi hypothyroi 1-24 it y of dism dism 00:00: [place] [address] Medical Branch Mild Mild Disease Active 2014-04 Univers persistent persistent 0-12 it y of asthma asthma 00:00: [place] [address] Medical Branch Anxiety Anxiety Disease Active 2014-04 Univers 0-12 ity of 00:00: [place] [address] Medical Branch Essential Essential Disease Active 2014-04 Uni vers hypertensi hypertensi 0-12 it y of on on 00:00: [place] [address] Medical [place] Allergies, Adverse Reactions, Alerts Allergy Allergy Status Severity Reaction(s) Onset Inactive Treating Comm ents Source Name Type Date Date Clinician NO KNOWN Drug Active Univers ALLERGIE Class ity of S [facility] [place] Social History Social Habit Start Date Stop Date Quantity Comments Source Exposure to Not sure [facility] bobbi of SARS-CoV-2 Medicine (event) Tobacco use and 2020-05-25 2020-05-25 Never used [facility] Co [facility]lege of exposure 00:00:00 00:00:00 Medicine Alcohol intake 2020-05-25 2020-05-25 Current drinker [facility] of 00:00:00 00:00:00 of alcohol Medicine (finding) Alcohol Comment 2020-05-25 2020-05-25 ocasional [facility] of 00:00:00 00:00:00 Medicine Sex [birth year] At [birth year] Universit y of 00:00:00 00:00:00 [facility] [place] Smoking Status Start Date Stop Date Source Never smoker [facility] o f Medicine Medications Ordered Filled Start Stop Current Ordering Indication Dosage Frequency Signature Comments Components Source Medication Medication Date Date Medication? Clinician (SIG) Name Name BUPROPION 2020-04 Yes [id number] Take 1 Un soniya XL 300 mg 1-11 tablet by ity o f 24 hr 00:00: mouth once [place] tablet 00 daily Medical Branch BUPROPION 2020-04 Yes [id number] Take 1 Un soniya XL 300 mg 1-11 tablet by ity o f 24 hr 00:00: mouth once [place] tablet 00 daily [facility] Branch BUPROPION 2020-1 Yes [id number] Take 1 Un soniya XL 300 mg 1-11 tablet by ity o f 24 hr 00:00: mouth once [place] tablet 00 daily Medical Branch BUPROPION 2020-1 Yes [id number] Take 1 Un soniya XL 300 mg 1-11 tablet by ity o f 24 hr 00:00: mouth once [place] tablet 00 daily Medical Branch budesonide- 2020-0 Yes Inhale 2 Un soniya formoteroL 8-30 puffs by ity o f (SYMBICORT) 00:00: mouth [place] 160-4.5 00 twice Medical mcg/actuati daily Branch on inhaler budesonide- 2020-0 Yes Inhale 2 Un soniya formoteroL 8-30 puffs by ity o f (SYMBICORT) 00:00: mouth [place] 160-4.5 00 twice Medical mcg/actuati daily Branch on inhaler budesonide- 0 Yes Inhale 2 Un soniya formoteroL 8-30 puffs by ity o f (SYMBICORT) 00:00: mouth [place] 160-4.5 00 twice Medical mcg/actuati daily Branch on inhaler budesonide- 2020-0 Yes Inhale 2 Un soniya formoteroL 8-30 puffs by ity o f (SYMBICORT) 00:00: mouth [place] 160-4.5 00 twice Medical mcg/actuati daily Branch on inhaler budesonide- 2020-0 Yes Inhale 2 Un soniya formoteroL 8-30 puffs by ity o f (SYMBICORT) 00:00: mouth [place] 160-4.5 00 twice Medical mcg/actuati daily Branch on inhaler buPROPion 2020-0 Yes [id number] 300mg Take 1 U nivers XL 300 mg 8-24 tablet by ity o f 24 hr 00:00: mouth [place] tablet 00 daily. Medical Branch lisinopriL 2020-0 Yes [id number] 20mg Take 1 U nivers 20 mg 8-24 tablet by ity of tablet 00:00: mouth [place] 00 daily. Medical Branch lisinopriL 2020-0 Yes [id number] 20mg Take 1 U nivers 20 mg 8-24 tablet by ity of tablet 00:00: mouth [place] 00 daily. Medical Branch lisinopriL 2021-0 Yes [id number] 20mg Take 1 U nivers 20 mg 8-24 tablet by ity of tablet 00:00: mouth [place] 00 daily. Medical Branch lisinopriL 2020-0 Yes [id number] 20mg Take 1 U nivers 20 mg 8-24 tablet by ity of tablet 00:00: mouth [place] 00 daily. Medical Branch lisinopriL 2020-0 Yes [id number] 20mg Take 1 U nivers 20 mg 8-24 tablet by ity of tablet 00:00: mouth [place] 00 daily. Medical Branch buPROPion 0 2020- No [id number] 300mg Take 1 Univers XL 300 mg 8-24 11-11 tablet by ity of 24 hr 00:00: 00:00 mouth [place] tablet 00 :00 daily. Medical Branch MONTELUKAST 0 Yes [id number] Take 1 Univers 10 mg 7-02 tablet by ity of tablet 00:00: mouth once [place] 00 daily Medical Branch MONTELUKAST 2020-0 Yes [id number] Take 1 Univers 10 mg 7-02 tablet by ity of tablet 00:00: mouth once [place] 00 daily Medical Branch MONTELUKAST 2020-0 Yes [id number] Take 1 Univers 10 mg 7-02 tablet by ity of tablet 00:00: mouth once [place] 00 daily Medical Branch MONTELUKAST 2020-0 Yes [id number] Take 1 Univers 10 mg 7-02 tablet by ity of tablet 00:00: mouth once [place] 00 daily Medical Branch MONTELUKAST 2020-0 Yes [id number] Take 1 Univers 10 mg 7-02 tablet by ity of tablet 00:00: mouth once [place] 00 daily Medical Branch pantoprazol 2020-0 Yes 40mg Take 1 Univ ers e 40 mg EC 3-04 tablet by ity of tablet 00:00: mouth [place] 00 daily. Medical Branch pantoprazol 2020-0 Yes 40mg Take 1 Univ ers e 40 mg EC 3-04 tablet by ity of tablet 00:00: mouth [place] 00 daily. Medical Branch pantoprazol 0 Yes 40mg Take 1 Univ ers e 40 mg EC 3-04 tablet by ity of tablet 00:00: mouth [place] 00 daily. Medical Branch pantoprazol 2020-0 Yes 40mg Take 1 Univ ers e 40 mg EC 3-04 tablet by ity of tablet 00:00: mouth [place] 00 daily. Medical Branch pantoprazol 2020-0 Yes 40mg Take 1 Univ ers e 40 mg EC 3-04 tablet by ity of tablet 00:00: mouth [place] 00 daily. Medical Branch gabapentin 2020-0 Yes 300mg Take 1 [facility] (NEURONTIN) 1-27 capsule by Co llege 300 MG 00:00: mouth at of capsule 00 bedtime. Medicin e CLONAZEPAM 2020-0 Yes [id number] Take 1 U nivers 0.5 mg 1-06 tablet by ity of tablet 00:00: mouth [place] 00 twice Medical daily as Branch needed for anxiety CLONAZEPAM 2020-0 Yes [id number] Take 1 U nivers 0.5 mg 1-06 tablet by ity of tablet 00:00: mouth [place] 00 twice Medical daily as Branch needed for anxiety CLONAZEPAM 2020-0 Yes [id number] Take 1 U nivers 0.5 mg 1-06 tablet by ity of tablet 00:00: mouth [place] 00 twice Medical daily as Branch needed for anxiety CLONAZEPAM 2020-0 Yes [id number] Take 1 U nivers 0.5 mg 1-06 tablet by ity of tablet 00:00: mouth [place] 00 twice Medical daily as Branch needed for anxiety CLONAZEPAM 2020-0 Yes [id number] Take 1 U nivers 0.5 mg 1-06 tablet by ity of tablet 00:00: mouth [place] 00 twice Medical daily as Branch needed for anxiety hydrOXYzine 1-0 Yes 25mg Take 25 mg Univers 25 mg 1-04 by mouth 3 ity of capsule 19:09: (three) [place] 11 times Medical daily as Branch needed for Itching. hydrOXYzine 1-0 Yes 25mg Take 25 mg Univers 25 mg 1-04 by mouth 3 ity of capsule 19:09: (three) [place] 11 times Medical daily as Branch needed for Itching. hydrOXYzine 1-0 Yes 25mg Take 25 mg Univers 25 mg 1-04 by mouth 3 ity of capsule 19:09: (three) [place] 11 times Medical daily as Branch needed for Itching. hydrOXYzine 2021-0 Yes 25mg Take 25 mg Univers 25 mg 1-04 by mouth 3 ity of capsule 19:09: (three) [place] 11 times Medical daily as Branch needed for Itching. hydrOXYzine 1-0 Yes 25mg Take 25 mg Univers 25 mg 1-04 by mouth 3 ity of capsule 19:09: (three) [place] 11 times Medical daily as Branch needed for Itching. medroxyPROG 2019-04 Yes 10mg Take 10 mg [facility] ESTERone 2-23 by mouth. Colleg e (PROVERA) 00:00: of 10 MG 00 Medicin tablet e medroxyPROG 2019-04 Yes [id number] 10mg Take 1 Univers ESTERone 2-23 tablet by ity of (PROVERA) 00:00: mouth [place] 10 mg 00 daily. Medical tablet Branch medroxyPROG 2019-04 Yes [id number] 10mg Take 1 Univers ESTERone 2-23 tablet by ity of (PROVERA) 00:00: mouth [place] 10 mg 00 daily. Medical tablet Branch medroxyPROG 2019-04 Yes [id number] 10mg Take 1 Univers ESTERone 2-23 tablet by ity of (PROVERA) 00:00: mouth [place] 10 mg 00 daily. Medical tablet Branch medroxyPROG 2019-04 Yes [id number] 10mg Take 1 Univers ESTERone 2-23 tablet by ity of (PROVERA) 00:00: mouth [place] 10 mg 00 daily. Medical tablet Branch medroxyPROG 2019-04 Yes [id number] 10mg Take 1 Univers ESTERone 2-23 tablet by ity of (PROVERA) 00:00: mouth [place] 10 mg 00 daily. Medical tablet Branch acetaminoph 2019-04 Yes 650mg Take 650 [facility] en 325 mg 2-15 mg by College tablet 00:00: mouth. of 00 Medicin e ibuprofen 2019-04 Yes 600mg Take 600 [facility] (MOTRIN) 2-15 mg by College 600 MG 00:00: mouth. of tablet 00 Medicin e ibuprofen 2019-04 Yes [id number] 600mg Take 1 Univers 600 mg 2-15 tablet by ity of tablet 00:00: mouth [place] 00 every 6 Medical (six) Branch hours as needed for Pain (scale 1-3) or Pain (scale 4-6). acetaminoph 2019-04 Yes [id number] 650mg Take 2 Univers en 2-15 tablets by ity of (TYLENOL) 00:00: mouth [place] 325 mg 00 every 6 Medical tablet (six) Branch hours as needed for Pain (scale 1-3) or Pain (scale 4-6). ibuprofen 2019-04 Yes [id number] 600mg Take 1 Univers 600 mg 2-15 tablet by ity of tablet 00:00: mouth [place] 00 every 6 Medical (six) Branch hours as needed for Pain (scale 1-3) or Pain (scale 4-6). acetaminoph 2019-04 Yes [id number] 650mg Take 2 Univers en 2-15 tablets by ity of (TYLENOL) 00:00: mouth [place] 325 mg 00 every 6 Medical tablet (six) Branch hours as needed for Pain (scale 1-3) or Pain (scale 4-6). ibuprofen 2019-04 Yes [id number] 600mg Take 1 Univers 600 mg 2-15 tablet by ity of tablet 00:00: mouth [place] 00 every 6 Medical (six) Branch hours as needed for Pain (scale 1-3) or Pain (scale 4-6). acetaminoph 2019-04 Yes [id number] 650mg Take 2 Univers en 2-15 tablets by ity of (TYLENOL) 00:00: mouth [place] 325 mg 00 every 6 Medical tablet (six) Branch hours as needed for Pain (scale 1-3) or Pain (scale 4-6). ibuprofen 2019-04 Yes [id number] 600mg Take 1 Univers 600 mg 2-15 tablet by ity of tablet 00:00: mouth [place] 00 every 6 Medical (six) Branch hours as needed for Pain (scale 1-3) or Pain (scale 4-6). acetaminoph 2019-04 Yes [id number] 650mg Take 2 Univers en 2-15 tablets by ity of (TYLENOL) 00:00: mouth [place] 325 mg 00 every 6 Medical tablet (six) Branch hours as needed for Pain (scale 1-3) or Pain (scale 4-6). ibuprofen 2019-04 Yes [id number] 600mg Take 1 Univers 600 mg 2-15 tablet by ity of tablet 00:00: mouth [place] 00 every 6 Medical (six) Branch hours as needed for Pain (scale 1-3) or Pain (scale 4-6). acetaminoph 2019-04 Yes [id number] 650mg Take 2 Univers en 2-15 tablets by ity of (TYLENOL) 00:00: mouth [place] 325 mg 00 every 6 Medical tablet (six) Branch hours as needed for Pain (scale 1-3) or Pain (scale 4-6). buPROPion 2019-04 Yes 300mg Take 300 Taberg gonzalo (WELLBUTRIN 2-02 mg by [facility] ) 300 MG XL 00:00: mouth. of tablet 00 Medicin e pantoprazol 2019-04 Yes 40mg Take 40 mg [facility] e 2-02 by mouth. [facility] (PROTONIX) 00:00: of 40 MG 00 Medicin tablet e clonazepam 2019-04 Yes .5mg Take 0.5 [facility]erg gonzalo (KLONOPIN) 1-06 mg by [facility] 0.5 MG 00:00: mouth as of tablet 00 needed. Medicin e pantoprazol 2019-0 Yes [id number] 40mg Take 1 Univers e 40 mg EC 9-16 tablet by ity of tablet 00:00: mouth [place] 00 daily. Medical Branch pantoprazol 2019-0 Yes [id number] 40mg Take 1 Univers e 40 mg EC 9-16 tablet by ity of tablet 00:00: mouth [place] 00 daily. Medical Branch pantoprazol 0 Yes [id number] 40mg Take 1 Univers e 40 mg EC 9-16 tablet by ity of tablet 00:00: mouth [place] 00 daily. Medical Branch pantoprazol 2019-0 Yes [id number] 40mg Take 1 Univers e 40 mg EC 9-16 tablet by ity of tablet 00:00: mouth [place] 00 daily. Medical Branch pantoprazol 2019-0 Yes [id number] 40mg Take 1 Univers e 40 mg EC 9-16 tablet by ity of tablet 00:00: mouth [place] 00 daily. Medical Branch albuterol 2019-0 Yes 1.25mg 1.25 mg by [facility] (ACCUNEB) 11-02 Inhalation [facility] 1.25 MG/3ML 00:00: route. of nebulizer 00 Medicin solution e albuterol 2019-0 Yes [id number] 1.25mg Use 3 mL Univers 1.25 mg/3 11-02 as ity of mL 00:00: directed [place] nebulizer 00 every 6 Medical solution (six) Branch hours as needed for Wheezing, Shortness of Breath or Bronchospa sm. albuterol 2019-0 Yes [id number] 1.25mg Use 3 mL Univers 1.25 mg/3 11-02 as ity of mL 00:00: directed [place] nebulizer 00 every 6 Medical solution (six) Branch hours as needed for Wheezing, Shortness of Breath or Bronchospa sm. albuterol 2019-0 Yes [id number] 1.25mg Use 3 mL Univers 1.25 mg/3 7-07 as ity of mL 00:00: directed [place] nebulizer 00 every 6 Medical solution (six) Branch hours as needed for Wheezing, Shortness of Breath or Bronchospa sm. albuterol 2020-0 Yes [id number] 1.25mg Use 3 mL Univers 1.25 mg/3 7-07 as ity of mL 00:00: directed [place] nebulizer 00 every 6 Medical solution (six) Branch hours as needed for Wheezing, Shortness of Breath or Bronchospa sm. albuterol 2020-0 Yes [id number] 1.25mg Use 3 mL Univers 1.25 mg/3 7-07 as ity of mL 00:00: directed [place] nebulizer 00 every 6 Medical solution (six) Branch hours as needed for Wheezing, Shortness of Breath or Bronchospa sm. albuterol 2020-0 Yes [id number] 2{puff} Inhale 2 Univers 90 3-12 Puffs ity of mcg/actuati 00:00: every 6 [place] as on inhaler 00 (six) Medical hours as Branch needed for Wheezing or Shortness of Breath. albuterol 2020-0 Yes [id number] 2{puff} Inhale 2 Univers 90 3-12 Puffs ity of mcg/actuati 00:00: every 6 [place] as on inhaler 00 (six) Medical hours as Branch needed for Wheezing or Shortness of Breath. albuterol 2020-0 Yes [id number] 2{puff} Inhale 2 Univers 90 3-12 Puffs ity of mcg/actuati 00:00: every 6 [place] as on inhaler 00 (six) Medical hours as Branch needed for Wheezing or Shortness of Breath. albuterol 2020-0 Yes [id number] 2{puff} Inhale 2 Univers 90 3-12 Puffs ity of mcg/actuati 00:00: every 6 [place] as on inhaler 00 (six) Medical hours as Branch needed for Wheezing or Shortness of Breath. albuterol 2020-0 Yes [id number] 2{puff} Inhale 2 Univers 90 3-12 Puffs ity of mcg/actuati 00:00: every 6 [place] as on inhaler 00 (six) Medical hours as Branch needed for Wheezing or Shortness of Breath. Budesonide- 2020-0 Yes 2{puff} Inhale 2 [facility] Formoterol 3-05 Puffs by Colle ge Fumarate 00:00: mouth. of (SYMBICORT) 00 Medicin 160-4.5 e MCG/ACT AERO lisinopril 2019-0 Yes 20mg Take 20 mg [facility] (PRINIVIL, 3-03 by mouth. [facility] ZESTRIL) 20 00:00: of MG tablet 00 Medicin e montelukast 2019-0 Yes 10mg Take 10 mg [place] (SINGULAIR) 3-03 by mouth. Col lege 10 MG 00:00: of tablet 00 Medicin e Vital Signs Vital Name Observation Time Observation Value Comments Source Systolic blood 2020-05-25 17:09:00 165 mm[Hg] [facility] pressure Medicine Diastolic blood 2020-05-25 17:09:00 91 mm[Hg] [facility] Heart rate 2020-05-25 17:09:00 87 /min [facility] Body height 2020-05-25 17:09:00 170.2 cm [facility] Body weight 2020-05-25 17:09:00 139.164 kg [facility] BMI 2020-05-25 17:09:00 48.05 kg/m2 [facility] Oxygen saturation in 2020-05-25 17:09:00 95 /min [facility] Arterial blood by [facility] Pulse oximetry Procedures Procedure Date / Time Performing Clinician Source Performed MEDICATION CORRESPONDENCE 2021-03-14 06:01:00 Doctor Unassigned, [facility] [place] Medical Branch Plan of Care Planned Activity Planned Date Details Comments Source Future Scheduled RHEUMATOID FACTOR Ordered: [facility] Test [code = 13613-4] 05/25/2020 of Medicine Future Scheduled CCP AB (IGG/IGA) [code Ordered: B [facility] Test = 24676-8] 05/25/2020 of [facility] Future Scheduled CBC W/AUTO DIFF WITH Ordered: [facility] Test PLATELETS [code = 05/25/2020 of Medicin e 62392-8] Future Scheduled COMPREHENSIVE Ordered: [facility] Col lege Test METABOLIC PANEL [code 05/25/2020 of Med icine = 69126-1] Future Scheduled SEDIMENTATION RATE Ordered: [facility] r [facility] Test MODIFIED WESTERGREN 05/25/2020 of Medic ine [code = 4537-7] Future Scheduled C-REACTIVE PROTEIN Ordered: [facility] r [facility] Test [code = 1988-5] 05/25/2020 of Medicine Future Scheduled CHUCK W REFLEX TITER Ordered: [facility] r [facility] Test [code = NOCPT] 05/25/2020 of Medicine Future Scheduled COLON CANCER [facility] Test SCREENING: COLONOSCOPY of [facility] [code = COLON CANCER SCREENING: COLONOSCOPY] Future Scheduled COVID-19 Vaccine [facility] Test Evaluation [code = of Medici ne COVID-19 Vaccine Evaluation] Future Scheduled TETANUS SHOT (ADULT) [facility] Test [code = TETANUS SHOT of Medi cine (ADULT)] Future Scheduled HEPATITIS C SCREENING [employer] Test [code = HEPATITIS C of Medic ine SCREENING] Future Scheduled HIV SCREENING [code = [facility] Test HIV SCREENING] of Medicine Future Scheduled CERVICAL CANCER [facility] C ollege Test SCREENING 3 YEAR of Medicine FOLLOW UP [code = CERVICAL CANCER SCREENING 3 YEAR FOLLOW UP] Future Scheduled ZOSTER VACCINE (1 of Taberg gonzalo [facility] Test 2) [code = ZOSTER of Medicin e VACCINE (1 of 2)] Future Scheduled FLU VACCINE > 6 MONTHS [facility] [code = FLU VACCINE > of Med icine 6 MONTHS] Future Scheduled MAMMO[facility] ANNUAL [facility]] of Medic ine Encounters Start End Encounter Admission Attending Care Care Encounter Source Date/Time Date/Time Type Type Clinicians Facility Department ID 2021-05-24 Outpatient [facility] [id number] Common 13:42:15 [id number] [facility] 2021-02-25 Outpatient R CARL VICENTE [facility] AMBER [id number] Univers 11:11:14 ity [facility] 2021-02-25 Outpatient CARL VICENTE [facility] [id number] Univers 09:12:05 [facility] 2021-02-25 Outpatient JENNIFER [facility] [id number] Univers 02:59:32 DIGNA [facility] 2021-10-24 2021-10-24 Krzysztof Sykes [facility] [id number] Univers 00:00:00 00:00:00 [facility] [id number] it y of [place] [id number] [place] as MACK?BLEA [phone] [address] OFFICE [facility] 2021-03-14 2021-03-14 Orders Doctor JEOVANY [id number] Univers 00:00:00 00:00:00 Only Unassigned, JONAS [id number] ity of [place] [facility] [id number] [place] as [phone] [address] 2021-03-13 2021-03-13 [facility] [id number] Univers 00:00:00 00:00:00 [facility] [id number] it y of [place] 4.2.7.2.686 [place] as MACK?BLEA [id number] [address] 2021-03-09 2021-03-09 Refill [facility] 1.2.840.114 [id number] Univers 00:00:00 00:00:00 [facility] [id number] it y of [place] [id number] [place] as PROFESSIO [phone] [address] 2021-02-15 2021-02-15 Outpatient R CARO [facility] [id number] Univers 10:30:00 10:30:00 LEATHA [id number] [facility] 2021-02-15 2021-02-15 Outpatient R CARO [facility] [id number] Univers 10:30:00 10:30:00 LEATHA [facility] 2021-01-18 2021-01-18 [facility] [id number] Univers 00:00:00 00:00:00 [facility] [id number] it y of [place] [id number] [place] as Professio [phone] [address] One 2020-12-20 2020-12-20 Outpatient STLMLC STLMLC [id number] Common 00:00:00 00:00:00 [facility] 2020-10-19 2020-10-19 Outpatient R JULES CARL [facility] [id number] Univers 15:00:00 15:00:00 [id number] [facility] 2020-06-23 2020-06-23 Outpatient R APOLONIA CAMARGO [facility] [id number] Univers 10:30:00 10:30:00 [id number] [facility] 2020-05-25 2020-05-25 Office [place], [facility] [id number] [facility] 11:03:55 11:47:19 Visit Lauren AMBULATOR 350.1.13.21 College Y 0.2.7.2.686 of [id number] Medi traci 370 e 2020-05-23 2020-05-23 Outpatient R JULES CARL [facility] [id number] Univers 09:15:00 09:15:00 [id number] [facility] 2020-05-23 2020-05-23 Outpatient R JULES CARL [facility] [id number] Univers 09:15:00 09:15:00 [facility] 2020-05-22 2020-05-22 Urgent Provider, [facility] [id number] 16:11:24 17:33:14 Care [facility] [id number] Care [place] [id number] Professio [phone] nal [address] One 2020-05-22 2020-05-22 Outpatient R [facility] [id number] Univers 16:40:00 16:40:00 [id number] [facility] 2020-05-22 2020-05-22 Outpatient R RENITA [facility] [id number] Univers 16:40:00 16:40:00 RAMONA [facility] 2020-05-19 2020-05-19 Outpatient R JULES CARL [facility] [id number] Univers 14:30:00 14:30:00 [id number] [facility] 2020-05-19 2020-05-19 Outpatient CARL HUFF [facility] [id number] Univers 14:30:00 14:30:00 [facility] 2020-05-17 2020-05-17 [address]840.114 [id number] 00:00:00 00:00:00 [facility] [id number] [place] [id number] Professio [phone] [place] [address] Office [address] 2020-05-17 2020-05-[address]840.114 [id number] 00:00:00 00:00:00 [facility] [id number] [place] [id number] Professio [phone] [place] [address] Office [facility] One 2020-05-11 2020-05-11 [facility] 12.840.114 [id number] 00:00:00 00:00:00 [facility] [id number] [place] [id number] Professio [phone] [place] [address] Office [facility] One 2020-05-04 2020-05-04 [facility] [id number] 00:00:00 00:00:00 [facility] [id number] [place] [id number] Professio [phone] [place] [address] Office [facility] One 2020-05-02 2020-05-02 Patient [facility] 12.840.114 [id number] 00:00:00 00:00:00 Secure Msg [facility] [id number] [place] [id number] Professio [phone] [place] [address] Office [facility] One 2020-04-30 2020-04-30 [facility] 1.2.840.114 [id number] 00:00:00 00:00:00 [facility] [id number] [place] [id number] Professio [phone] nal 044 Office Building One 2020-04-26 2020-04-26 Outpatient APOLONIA CAMARGO [facility] [id number] Univers 09:00:00 09:00:00 [id number] [facility] 2020-04-26 2020-04-26 Outpatient R KIM [facility] [id number] Univers 09:00:00 09:00:00 DOROTHEA [facility] 2020-04-20 2020-04-20 Office Jules [facility] [id number] 14:52:53 15:33:34 Visit Marcelo Gonzalez [id number] Reza [id number] Professio [id number] nal 134 Building 2020-04-20 2020-04-20 Outpatient R CARL VICENTE [facility] [id number] Univers 15:00:00 15:00:00 [id number] [facility] 2020-04-20 2020-04-20 Outpatient R JULES CARL [facility] [id number] Univers 15:00:00 15:00:00 [facility] 2020-04-20 2020-04-20 Orders Doctor JEOVANY [id number] 00:00:00 00:00:00 Only Unassigned, JONAS [id number] [place] [facility] [id number] 2020-04-11 2020-04-11 Outpatient R CARL VICENTE [facility] [id number] Univers 15:30:00 15:30:00 [facility] 2020-04-11 2020-04-11 Outpatient R [facility] [id number] Univers 13:00:00 13:00:00 [id number] [facility] 2020-04-11 2020-04-11 Outpatient R [facility] [id number] Univers 13:00:00 13:00:00 [facility] 2020-04-06 2020-04-06 Outpatient Lilia KEBEDE [facility] [id number] Univers 13:00:00 13:00:00 KAMALA [facility] 2020-04-06 2020-04-06 Outpatient R DELIO [facility] [id number] Univers 13:00:00 13:00:00 KAMALA [facility] 2020-04-01 2020-04-01 Outpatient R [facility] [id number] Univers 12:30:00 12:30:00 [facility] 2020-04-01 2020-04-01 Outpatient R SHARADLIVIARANDA, [facility] [id number] Univers 12:30:00 12:30:00 THONG [facility] 2020-03-22 2020-03-22 Outpatient R CARO, [facility] [id number] Univers 09:00:00 09:00:00 LEATHA [id number] [facility] 2020-03-22 2020-03-22 Outpatient R CARO, [facility] [id number] Univers 09:00:00 09:00:00 LEATHA [facility] 2020-03-17 2020-03-17 [facility] [id number] Univers 13:15:00 13:15:00 DIGNA [facility] 2020-03-17 2020-03-17 Outpatient R [facility] [id number] Univers 13:15:00 13:15:00 [id number] 2020-03-16 Outpatient R CARL VICENTE [facility] [id number] Univers 13:45:00 13:45:00 [facility] 2020-03-16 2020-03-16 Outpatient R [facility] [id number] Univers 13:30:00 13:30:00 [id number] [facility] 2020-03-08 2020-03-08 Outpatient R JENNIFER, [facility] [id number] Univers 15:00:00 15:00:00 DIGNA [facility] 2020-03-03 2020-03-03 Outpatient R CARO, [facility] [id number] Univers 15:00:00 15:00:00 LEATHA [facility] 2020-03-03 2020-03-03 Outpatient R CARO, [facility] [id number] Univers 14:00:00 14:00:00 LEATHA [facility] 2020-03-01 2020-03-01 Outpatient R CARL VICENTE [facility] [id number] Univers 15:30:00 15:30:00 it[facility] of [facility] 2020-03-01 2020-03-01 Outpatient R CARL VICENTE [facility] [id number] Univers 15:30:00 15:30:00 it[facility] of [facility] 2020-02-25 2020-02-25 Outpatient R DELIO [facility] [id number] Univers 10:15:00 10:15:00 KAMALA [id number] [facility] of [facility] 2020-02-25 2020-02-25 Outpatient R DELIO [facility] [id number] Univers 10:15:00 10:15:00 KAMALA [facility] 2020-02-22 2020-02-22 Outpatient R [facility] [id number] Univers 16:20:00 16:20:00 [id number] [facility] 2020-02-22 2020-02-22 Outpatient R MAGDALENE [facility] [id number] Univers 16:20:00 16:20:00 FELIPE [facility] 2020-02-18 2020-02-18 Outpatient R SHARADLIVIARANDA [facility] [id number] Univers 12:45:00 12:45:00 THONG [id number] [facility] 2020-02-18 2020-02-18 Outpatient R LILY [facility] [id number] Univers 00:00:00 00:00:00 THONG [facility] 2020-02-17 2020-02-17 Outpatient R [facility] [id number] Univers 10:45:00 10:45:00 [id number] it[facility] of [facility] 2020-02-17 2020-02-17 Outpatient R [facility] [id number] Univers 10:45:00 10:45:00 ity of [facility] 2020-02-16 2020-02-16 Outpatient CARO, [facility] [id number] Univers 13:45:00 13:45:00 LEATHA [facility] 2020-02-16 2020-02-16 Outpatient R CARO [facility] [id number] Univers 13:45:00 13:45:00 LEATHA [facility] 2020-01-13 2020-01-13 Outpatient LILY [facility] [id number] Univers 14:00:00 14:00:00 THONG [id number] [facility] 2020-01-13 2020-01-[id number] Univers 14:00:00 14:00:00 THONG [facility] 2019-08-19 2019-08-19 Outpatient R LILY [facility] [id number] Univers 15:00:00 15:00:00 THONG [facility] 2019-08-19 2019-08-19 Outpatient [facility] [id number] Univers 09:00:00 09:00:00 [id number] [facility] 2019-08-19 2019-08-19 Outpatient R [facility] [id number] Univers 09:00:00 09:00:00 [facility] 2019-07-09 2019-07-09 Outpatient LILY [facility] [id number] Univers 11:30:00 11:30:00 THONG [id number] [facility] 2019-07-09 2019-07-09 Outpatient R LILY [facility] [id number] Univers 11:30:00 11:30:00 THONG [facility] 2019-07-02 2019-07-02 Outpatient LILY [facility] [id number] Univers 11:30:00 11:30:00 THONG [facility] 2019-07-02 2019-07-02 Outpatient R LILY [facility] [id number] Univers 11:30:00 11:30:00 THONG [facility] Results This patient has no known results.
== END 2021-11-14 12:51 | disposition home or self-care (01) | DRG 419 ==
LOC: ER 06:33 → ERHOLD 12:50 → 2ND 15:17
PROVIDERS: ADMIT Internal Medicine; ATTEND Internal Medicine
PROC: 0FT44ZZ Resection of Gallbladder, Percutaneous Endoscopic Approach (ICD-10-PCS; principal; 2021-11-13 12:30)
DX: K80.00 Calculus of gallbladder with acute cholecystitis without obstruction (principal); R74.8 Abnormal levels of other serum enzymes; I10 Essential (primary) hypertension; J45.909 Unspecified asthma, uncomplicated; Z20.822 Contact with and (suspected) exposure to COVID-19
CPT/HCPCS: 36415; 71045; 74177; 74181; 76705; 80048; 80053; 80061; 80076; 81001; 83690; 83735; 83880; 84100; 84484; 85025; 85610; 88304; 93005; 94760; 96361; 96365; 96366; 96375; 99285; J1170; J1630; J2250; J2405; J2543; J2704; J2710; J3010; J7030; J7042; J7050; J7120; Q9967; U0003

== ENCOUNTER 2022-06-20 09:23 | Emergency (ER) | payer OTHER ==
--- OUTSIDE RECORDS SUMMARY | 2022-06-20 09:27 | XMS REPORT | Continuity of Care Document ---
:1965 Author Organization [facility] [place] t Address [address] [place] [address] Dr. Bond. [address] [place] [address] Care Team Providers Name Role Phone Thong Bautista MD Primary Care Physician [phone] CARL VICENTE Attending Clinician Unavailable NEYDA JACKSON Attending Clinician Unavailable ZI_REANNA_Tushar Attending Clinician Unavailable Thong Bautista MD Attending Clinician Doctor Unassigned, [place] Attending Clinician Unavailable LEATHA ELIZONDO Attending Clinician Unavailable Albina Reich LVN Attending Clinician Unavailable Marco Burrows DO Attending Clinician Lauren Delacruz MD Attending Clinician Provider, [facility] Attending Clinician Unavailable Ramona Bermudez Attending Clinician RAMONA MARAVILLA Attending Clinician Unavailable DOROTHEA ALVAREZ Attending Clinician Unavailable Carl Vicente MD Attending Clinician Pob, [facility] Main Attending Clinician Unavailable Only, Adc Test Attending Clinician Unavailable KAMALA KEBEDE Attending Clinician Unavailable THONG BAUTISTA Attending Clinician Unavailable Neyda Jackson MD Attending Clinician Leatha Elizondo PA-C Attending Clinician [place] MARTINEZPFelicitas Attending Clinician Kamala Rios Attending Clinician Ana Lilia DOS SANTOS, Felipe Attending Clinician FELIPE SUNG Attending Clinician Unavailable 2, [facility] Attending Clinician Unavailable Gianni BRAND, Karoline Attending Clinician CARL VICENTE Admitting Clinician Unavailable NEYDA JACKSON Admitting Clinician Unavailable GC_SWHAWSSL_Tharappe Admitting Clinician Unavailable Jules BRAND, Carl Baum Admitting Clinician Neyda Jackson MD Admitting Clinician Payers Payer Name Policy Type Policy Number Effective Date Expiration Date S ource HIM BCBS BLUE [id number] 2020 ADVANTAGE HMO 00:00:00 [place] - [id number] [facility] [place] from [id number] [facility] Problems Condition Condition Condition Status Onset Resolution Last Treating Co mments Source Name Details Category Date Date Treatment Clinician Date Screening Screening Disease Active 2019-04 Overview: Univers for for 05-02 Formattin ity of colorectal colorectal 00:00: g of this [place] cancer cancer 00 note Medical might be Branch different from the original. Added automatic ally from request for surgery [id number] Morbid Morbid Disease Active 2019-04 Univers obesity obesity 0-20 [place] of [place] mass [place] mass index 00 Me dical of of Branch 40.0-49.9 40.0-49.9 Acquired Acquired Disease Active Unive rs hypothyroi hypothyroi 1-24 it y of dism dism 00:00: [place] [id number] Medical Branch Mild Mild Disease Active 2014-04 Univers persistent persistent 0-12 it y of asthma asthma 00:00: [place] [facility] Anxiety Anxiety Disease Active 2014-04 Univers 0-12 ity of 00:00: Medical Branch Essential Essential Disease Active 2014-04 Uni vers hypertensi hypertensi 0-12 it y of on on 00:00: [place] 00 Medical Branch [id number] Primary Problem Active Comm on osteoarthr Spirit itis of - [facility] right knee [facility] Allergies, Adverse Reactions, Alerts Allergy Allergy Status Severity Reaction(s) Onset Inactive Treating Comm ents Source Name Type Date Date Clinician NO KNOWN Drug Active Univers ALLERGIE Class ity of S [facility] Social History Social Habit Start Date Stop Date Quantity Comments Source History of [facility] - Tobacco Use [facility] Sex Assigned At [facility] magdalena - [facility] Exposure to Not sure [facility] Colleitz e SARS-CoV-2 of Medicine (event) Tobacco use and 2020-05-25 2020-05-25 Never used [employer] exposure 00:00:00 00:00:00 of Medicine Alcohol intake 2020-05-25 2020-05-25 Current drinker [employer] 00:00:00 00:00:00 of alcohol of Medicine (finding) Alcohol Comment 2020-05-25 2020-05-25 ocasional [place] [facility] 00:00:00 00:00:00 of Medicine Smoking Status Start Date Stop Date Source Never Smoker [facility] Medications Ordered Filled Start Stop Current Ordering Indication Dosage Frequency Signature Comments Components Source Medication Medication Date Date Medication? Clinician (SIG) Name Name BUPROPION 2020-04 Yes [id number] Take 1 Un soniya XL 300 mg 1-11 tablet by ity o f 24 hr 00:00: mouth once [place] tablet 00 daily Medical Branch BUPROPION 2020-04 Yes [id number] Take 1 Un soniya XL 300 mg 1-11 tablet by ity o f 24 hr 00:00: mouth once [place] tablet 00 daily Medical Branch BUPROPION 2020-04 Yes [id number] Take 1 Un soniya XL 300 mg 1-11 tablet by ity o f 24 hr 00:00: mouth once [place] tablet 00 daily Medical Branch BUPROPION 2020-04 Yes [id number] Take 1 Un soniya XL 300 mg 1-11 tablet by ity o f 24 hr 00:00: mouth once [place] tablet 00 daily Medical Branch budesonide- Yes Inhale 2 Un soniya formoteroL 8-30 [...] daily Branch on inhaler buPROPion 2020-0 Yes [id number] 300mg Take 1 U nivers XL 300 mg 8-24 tablet by ity o f 24 hr 00:00: mouth [place] tablet 00 daily. Medical Branch lisinopriL 2020-0 Yes [id number] 20mg Take 1 U nivers 20 mg 8-24 tablet by ity of tablet 00:00: mouth [place] 00 daily. Medical Branch lisinopriL 2020-0 Yes [id number] 20mg Take 1 U nivers 20 mg 8-24 tablet by ity of tablet 00:00: mouth [place] 00 daily. Medical Branch lisinopriL 2020-0 Yes [id number] 20mg Take 1 U nivers 20 mg 8-24 tablet by ity of tablet 00:00: mouth [place] 00 daily. Medical Branch lisinopriL 2020-0 Yes [id number] 20mg Take 1 U nivers 20 mg 8-24 tablet by ity of tablet 00:00: mouth [place] 00 daily. Medical Branch lisinopriL 2020-0 Yes [id number] 20mg Take 1 U nivers 20 mg 8-24 tablet by ity of tablet 00:00: mouth [place] 00 daily. Medical Branch buPROPion 2021-0 2021- No [id number] 300mg Take 1 Univers XL 300 mg 8-24 11-11 tablet by ity of 24 hr 00:00: 00:00 mouth [place] tablet 00 :00 daily. Medical Branch MONTELUKAST 0 Yes [id number] Take 1 Univers 10 mg 7-02 tablet by ity of tablet 00:00: mouth once [place] 00 daily Medical Branch MONTELUKAST 2020-0 Yes [id number] Take 1 Univers 10 mg 7-02 tablet by ity of tablet 00:00: mouth once [place] 00 daily Medical Branch MONTELUKAST 2020-0 Yes [id number] Take 1 Univers 10 mg 7-02 tablet by ity of tablet 00:00: mouth once [place] 00 daily Medical Branch MONTELUKAST 2020-0 Yes [id number] Take 1 Univers 10 mg 7-02 tablet by ity of tablet 00:00: mouth once [place] 00 daily Medical Branch MONTELUKAST 2020-0 Yes [id number] Take 1 Univers 10 mg 7-02 tablet by ity of tablet 00:00: mouth once [place] 00 daily Medical Branch pantoprazol 0 Yes 40mg Take [...] mouth [place] 00 daily. Medical Branch gabapentin 0 Yes 300mg Take 1 [facility] (NEURONTIN) 1-27 capsule by Co llege 300 MG 00:00: mouth at of capsule 00 bedtime. Medicin e CLONAZEPAM Yes [id number] Take 1 U nivers 0.5 mg 1-06 tablet by ity of tablet 00:00: mouth [place] 00 twice Medical daily as Branch needed for anxiety CLONAZEPAM 2021-0 Yes [id number] Take 1 U nivers 0.5 mg 1-06 tablet by ity of tablet 00:00: mouth [place] 00 twice Medical daily as Branch needed for anxiety CLONAZEPAM 2021-0 Yes [id number] Take 1 U nivers 0.5 mg 1-06 tablet by ity of tablet 00:00: mouth [place] 00 twice Medical daily as Branch needed for anxiety CLONAZEPAM 2021-0 Yes [id number] Take 1 U nivers 0.5 mg 1-06 tablet by ity of tablet 00:00: mouth [place] 00 twice Medical daily as Branch needed for anxiety CLONAZEPAM 2021-0 Yes [id number] Take 1 U nivers 0.5 mg 1-06 tablet by ity of tablet 00:00: mouth [place] 00 twice Medical daily as Branch needed for anxiety hydrOXYzine 2021-0 Yes 25mg Take 25 mg [...] daily as Branch needed for Itching. medroxyPROG 2020-1 Yes 10mg Take 10 mg [facility] ESTERone 2-23 by mouth. Colleg e (PROVERA) 00:00: of 10 MG 00 Medicin tablet e medroxyPROG 2020-1 Yes [id number] 10mg Take 1 Univers ESTERone 2-23 tablet by ity of (PROVERA) 00:00: mouth [place] 10 mg 00 daily. Medical tablet Branch medroxyPROG 2020-1 Yes [id number] 10mg Take 1 Univers ESTERone 2-23 tablet by ity of (PROVERA) 00:00: mouth [place] 10 mg 00 daily. Medical tablet Branch medroxyPROG 2019-04 Yes [id number] 10mg Take 1 Univers ESTERone 2-23 tablet by ity of (PROVERA) 00:00: mouth [place] 10 mg 00 daily. Medical tablet Branch medroxyPROG 2019-04 Yes [id number] 10mg Take 1 Univers ESTERone 2-23 tablet by ity of (PROVERA) 00:00: mouth [place] 10 mg 00 daily. Medical tablet Branch medroxyPROG 2019-04 Yes [id number] 10mg Take 1 Univers ESTERone 2-23 tablet by ity of (PROVERA) 00:00: mouth [place] 10 mg 00 daily. Medical tablet Branch acetaminoph 2019-04 Yes 650mg Take 650 B aylor en 325 mg 2-15 mg by College tablet 00:00: mouth. of 00 Medicin e ibuprofen 2019-04 Yes 600mg Take 600 Gray gonzalo (MOTRIN) 2-15 mg by College 600 MG 00:00: mouth. of tablet 00 Medicin e ibuprofen 2019-04 Yes [id number] 600mg Take 1 Univers 600 mg 2-15 tablet by ity of tablet 00:00: mouth [place] 00 every 6 Medical (six) Branch hours as needed for Pain (scale 1-3) or Pain (scale 4-6). acetaminoph 2019-04 Yes [id number] 650mg Take 2 Univers en 2-15 tablets by ity of (TYLENOL) 00:00: mouth [place] 325 mg 00 every 6 Medical tablet (six) Branch hours as needed for Pain (scale 1-3) or Pain (scale 4-6). ibuprofen 2019-04 Yes [id number] 600mg Take 1 Univers 600 mg 2-15 tablet by ity of tablet 00:00: mouth [place] 00 every 6 Medical (six) Branch hours as needed for Pain (scale 1-3) or Pain (scale 4-6). acetaminoph 2019-04 Yes [id number] 650mg Take 2 Univers en 2-15 tablets by ity of (TYLENOL) 00:00: mouth [place] 325 mg 00 every 6 Medical tablet (six) Branch hours as needed for Pain (scale 1-3) or Pain (scale 4-6). ibuprofen 2019-04 Yes [id number] 600mg Take 1 Univers 600 mg 2-15 tablet by ity of tablet 00:00: mouth [place] 00 every 6 Medical (six) Branch hours as needed for Pain (scale 1-3) or Pain (scale 4-6). acetaminoph 2019-04 Yes [id number] 650mg Take 2 Univers en 2-15 tablets by ity of (TYLENOL) 00:00: mouth [place] 325 mg 00 every 6 Medical tablet (six) Branch hours as needed for Pain (scale 1-3) or Pain (scale 4-6). ibuprofen 2019-04 Yes [id number] 600mg Take 1 Univers 600 mg 2-15 tablet by ity of tablet 00:00: mouth [place] 00 every 6 Medical (six) Branch hours as needed for Pain (scale 1-3) or Pain (scale 4-6). acetaminoph 2019-04 Yes [id number] 650mg Take 2 Univers en 2-15 tablets by ity of (TYLENOL) 00:00: mouth [place] 325 mg 00 every 6 Medical tablet (six) Branch hours as needed for Pain (scale 1-3) or Pain (scale 4-6). ibuprofen 2019-04 Yes [id number] 600mg Take 1 Univers 600 mg 2-15 tablet by ity of tablet 00:00: mouth [place] 00 every 6 Medical (six) Branch hours as needed for Pain (scale 1-3) or Pain (scale 4-6). acetaminoph 2019-04 Yes [id number] 650mg Take 2 Univers en 2-15 tablets by ity of (TYLENOL) 00:00: mouth [place] 325 mg 00 every 6 Medical tablet (six) Branch hours as needed for Pain (scale 1-3) or Pain (scale 4-6). buPROPion 2019-04 Yes 300mg Take 300 [facility] gonzalo (WELLBUTRIN 2-02 mg by College ) 300 MG XL 00:00: mouth. of tablet 00 Medicin e pantoprazol 2019-04 Yes 40mg Take 40 mg [place] e 2-02 by mouth. College (PROTONIX) 00:00: of 40 MG 00 Medicin tablet e clonazepam 2019-04 Yes .5mg Take 0.5 [facility] gonzalo (KLONOPIN) 1-06 mg by College 0.5 MG 00:00: mouth as of tablet 00 needed. Medicin e pantoprazol 2020-0 Yes [id number] 40mg Take 1 Univers e 40 mg EC 9-16 tablet by ity of tablet 00:00: mouth [place] 00 daily. Medical Branch pantoprazol 2020-0 Yes [id number] 40mg Take 1 Univers e 40 mg EC 9-16 tablet by ity of tablet 00:00: mouth [place] 00 daily. Medical Branch pantoprazol 2020-0 Yes [id number] 40mg Take 1 Univers e 40 mg EC 9-16 tablet by ity of tablet 00:00: mouth [place] 00 daily. Medical Branch pantoprazol 2020-0 Yes [id number] 40mg Take 1 Univers e 40 mg EC 9-16 tablet by ity of tablet 00:00: mouth [place] 00 daily. Medical Branch pantoprazol 2019-0 Yes [id number] 40mg Take 1 Univers e 40 mg EC 9-16 tablet by ity of tablet 00:00: mouth [place] 00 daily. Medical Branch albuterol 2019-0 Yes 1.25mg 1.25 mg by [facility] (ACCUNEB) 11-02 Inhalation Mendez ege 1.25 MG/3ML 00:00: route. of nebulizer 00 Medicin solution e albuterol 2019-0 Yes [id number] 1.25mg Use 3 mL Univers 1.25 mg/3 7- as ity of mL 00:00: directed [place] nebulizer 00 every 6 Medical solution (six) Branch hours as needed for Wheezing, Shortness of Breath or Bronchospa sm. albuterol 2019-0 Yes [id number] 1.25mg Use 3 mL Univers 1.25 mg/3 - as ity of mL 00:00: directed [place] nebulizer 00 every 6 Medical solution (six) Branch hours as needed for Wheezing, Shortness of Breath or Bronchospa sm. albuterol 2020-0 Yes [id number] 1.25mg Use 3 mL Univers 1.25 mg/3 7-07 as ity of mL 00:00: directed [place] nebulizer 00 every 6 Medical solution (six) Branch hours as needed for Wheezing, Shortness of Breath or Bronchospa sm. albuterol 2020-0 Yes [id number] 1.25mg Use 3 mL Univers 1.25 mg/3 7-07 as ity of mL 00:00: directed [place] nebulizer 00 every 6 Medical solution (six) Branch hours as needed for Wheezing, Shortness of Breath or Bronchospa sm. albuterol 2020-0 Yes [id number] 1.25mg Use 3 mL Univers 1.25 mg/3 7-07 as ity of mL 00:00: directed [place] nebulizer 00 every 6 Medical solution (six) Branch hours as needed for Wheezing, Shortness of Breath or Bronchospa sm. albuterol 2020-0 Yes [id number] 2{puff} Inhale 2 Univers 90 3-12 Puffs ity of mcg/actuati 00:00: every 6 [place] as on inhaler 00 (six) Medical hours as Branch needed for Wheezing or Shortness of Breath. albuterol 2020-0 Yes [id number] 2{puff} Inhale 2 Univers 90 3-12 Puffs ity of mcg/actuati 00:00: every 6 [place] as on inhaler 00 (six) Medical hours as Branch needed for Wheezing or Shortness of Breath. albuterol 2019-0 Yes [id number] 2{puff} Inhale 2 Univers 90 3-12 Puffs ity of mcg/actuati 00:00: every 6 [place] as on inhaler 00 (six) Medical hours as Branch needed for Wheezing or Shortness of Breath. albuterol 2020-0 Yes [id number] 2{puff} Inhale 2 Univers 90 3-12 Puffs ity of mcg/actuati 00:00: every 6 [place] as on inhaler 00 (six) Medical hours as Branch needed for Wheezing or Shortness of Breath. albuterol 2020-0 Yes [id number] 2{puff} Inhale 2 Univers 90 3-12 Puffs ity of mcg/actuati 00:00: every 6 [place] as on inhaler 00 (six) Medical hours as Branch needed for Wheezing or Shortness of Breath. Budesonide- 2019-0 Yes 2{puff} Inhale 2 [facility] Formoterol 3-05 Puffs by Colle ge Fumarate 00:00: mouth. of (SYMBICORT) 00 Medicin 160-4.5 e MCG/ACT AERO lisinopril 2019-0 Yes 20mg Take 20 mg B aylor (PRINIVIL, 3-03 by mouth. Mendez ege ZESTRIL) 20 00:00: of MG tablet 00 Medicin e montelukast 2019-0 Yes 10mg Take 10 mg [facility] (SINGULAIR) 3-03 by mouth. Col lege 10 MG 00:00: of tablet 00 Medicin e hydroCHLORO hydroCHLORO No hydroCHLOR thiazide thiazide Othiazide buPROPion buPROPion No buPROPion HCl ER (XL) HCl ER (XL) HCl ER (XL) Phentermine Phentermine No Phentermin HCl HCl e HCl Lisinopril Lisinopril No Lisinopril medroxyPROG medroxyPROG No medroxyPRO ESTERone ESTERone GESTERone Acetate Acetate Acetate Gabapentin Gabapentin No Gabapentin Symbicort Symbicort No Symbicort clonazePAM clonazePAM No clonazePAM Ibuprofen Ibuprofen No Ibuprofen Progesteron Progesteron No Progestero e e ne Golytely Golytely No Golytely miSOPROStol miSOPROStol No miSOPROSto l Montelukast Montelukast No Montelukas Sodium Sodium t Sodium Vitamin D Vitamin D No Vitamin D (Ergocalcif (Ergocalcif (Ergocalci sherman) sherman) ferol) Pantoprazol Pantoprazol No Pantoprazo e Sodium e Sodium le Sodium Immunizations Ordered Immunization Filled Immunization Date Status Commen ts Source Name Name Bupivicaine [place] Bupivicaine [place] 2020-12-20 Completed [facility] 14:16:00 [facility] Kenalog Kenalog 2020-12-20 Completed [facility] (Triamcinolone) (Triamcinolone) 14:15:00 [facility] Vital Signs Vital Name Observation Time Observation Value Comments Source height 2020-12-20 13:00:00 66 [in_i] [facility] weight 2020-12-20 13:00:00 252.4 [lb_av] [facility] bmi 2020-12-20 13:00:00 40.73 kg/m2 [facility] blood pressure 2020-12-20 13:00:00 142 mm[Hg] [facility] systolic [facility] blood pressure 2020-12-20 13:00:00 88 mm[Hg] [facility] diastolic [facility] Systolic blood 2020-05-25 17:09:00 165 mm[Hg] [facility] Diastolic blood 2020-05-25 17:09:00 91 mm[Hg] [facility] pressure [facility] Heart rate 2020-05-25 17:09:00 87 /min [facility] Body height 2020-05-25 17:09:00 170.2 cm [facility] Body weight 2020-05-25 17:09:00 139.164 kg [facility] BMI 2020-05-25 17:09:00 48.05 kg/m2 [facility] Oxygen saturation in 2020-05-25 17:09:00 95 /min [facility] Arterial blood by [facility] Pulse oximetry Procedures Procedure Date / Time Performing Clinician Source Performed MEDICATION CORRESPONDENCE 2021-03-14 06:01:00 Doctor Unassigned, [facility] [place] [facility] Plan of Care Planned Activity Planned Date Details Comments Source Future Scheduled RHEUMATOID FACTOR Ordered: [facility] Test [code = 57958-7] 05/25/2020 of [facility] Future Scheduled CCP AB (IGG/IGA) [code Ordered: B [facility] Test = 12425-5] 05/25/2020 of [facility] Future Scheduled CBC W/AUTO DIFF WITH Ordered: [facility] Test PLATELETS [code = 05/25/2020 of Medicin e 88052-7] Future Scheduled COMPREHENSIVE Ordered: [facility] Col lege Test METABOLIC PANEL [code 05/25/2020 of Med icine = 88428-8] Future Scheduled SEDIMENTATION RATE Ordered: [facility] Test [facility]IED [facility] of Medic ine [code = 4537-7] Future Scheduled C-REACTIVE PROTEIN Ordered: [facility] Test [code = 1988-5] 05/25/2020 of [facility] Future Scheduled CHUCK W REFLEX TITER Ordered: [facility] Test [code = NOCPT] 05/25/2020 of [facility] Future Scheduled COLON CANCER [facility] Mendez ege Test SCREENING: COLONOSCOPY of Me dicine [code = COLON CANCER SCREENING: COLONOSCOPY] Future Scheduled COVID-19 Vaccine [facility] Test Evaluation [code = of Medici ne COVID-19 Vaccine Evaluation] Future Scheduled TETANUS SHOT (ADULT) [facility] Test [code = TETANUS SHOT of Medi cine (ADULT)] Future Scheduled HEPATITIS C SCREENING [facility] Test [code = HEPATITIS C of Medic ine SCREENING] Future Scheduled HIV SCREENING [code = Ba [facility] Test HIV SCREENING] of Medicine Future Scheduled CERVICAL CANCER [facility] rojas Test SCREENING 3 YEAR of Medicine FOLLOW UP [code = CERVICAL CANCER SCREENING 3 YEAR FOLLOW UP] Future Scheduled ZOSTER VACCINE (1 of [facility] Test 2) [code = ZOSTER of Medicin e VACCINE (1 of 2)] Future Scheduled FLU V[facility]INE > 6 MON[facility]code = FLU VACCINE > of Med icine 6 MONTHS] Future Scheduled MAMMOGRAM ANNUAL [facility]AM[facility] ANNUAL] of Medic ine Encounters Start End Encounter Admission Attending Care Care Encounter Source Date/Time Date/Time Type Type Clinicians Facility Department ID 2021-05-24 Outpatient [facility] [id number] Common 13:42:15 [id number] [facility] 2021-02-25 Outpatient R CARL VICENTE [facility] AMBER [id number] Univers 11:11:14 ity [facility] 2021-02-25 Outpatient CARL VICENTE [facility] [id number] Univers 09:12:05 ity [facility] 2021-02-25 Outpatient MANUEL [facility] [id number] Univers 02:59:32 [facility] 2022-03-10 Outpatient GC_SWHAWSSL PRIV PRIV [id number] [facility] 00:00:00 00:00:00 _Tharabulle [id number] Medi cira 2022-02-06 2022-02-06 Outpatient PRIV PRIV [id number] [facility] 00:00:00 00:00:00 [id number] Medica l 2021-10-24 2021-10-24 [facility] [id number] Univers 00:00:00 00:00:00 [facility] [id number] it y of Jonny DELGAD[place] [id number] [place] as JAROCHO?BLEA [phone] Vt jude [address] MEDICAL OFFICE BUILDING 2021-03-14 2021-03-14 Orders Doctor THAYER [id number] Univers 00:00:00 00:00:00 Only Unassigned, JONAS [id number] ity of [place] [facility] [id number] [place] as [phone] [address] 2021-03-13 2021-03-13 Telephone [facility] [id number] Univers 00:00:00 00:00:00 [facility] [id number] it y of [place] [id number] [place] as JAROCHO?BLEA [phone] [address] MEDICAL OFFICE [facility] 2021-03-09 2021-03-09 [facility] [id number] Univers 00:00:00 00:00:00 [facility] [id number] it y of [place] [id number] [place] as PROFESSIO [phone] [address] ONE 2021-02-15 2021-02-15 Outpatient R [facility] [id number] Univers 10:30:00 10:30:00 LEATHA ity of [facility] 2021-01-18 2021-01-18 [facility] 1.2.840.114 [id number] Univers 00:00:00 00:00:00 [facility] [id number] it y of [place] [id number] [place] as Professio [id number] [address] One 2020-12-29 2020-12-29 Telephone [facility] 1.2.840.114 [id number] Univers 00:00:00 00:00:00 [facility] [id number] it y of [place] [id number] [place] as Jarocho?Blea [phone] [address] Office [facility] 2020-12-26 2020-12-26 [facility] 1.2.840.114 [id number] Univers 00:00:00 00:00:00 Secure Msg [facility] [id number] ity of [place] [id number] [place] as Jarocho?Blea [phone] Vt jude shaw [address] [place] [facility] 2020-12-20 2020-12-20 OFFICE [facility] [id number] Co mmon 00:00:00 00:00:00 VISIT NEW Spir it PT LEVEL 4 - [facility] 2020-12-19 2020-12-19 [facility] 1.2.840.114 [id number] Univers 00:00:00 00:00:00 Secure Msg [facility] [id number] ity of [place] [id number] [place] as Professio [phone] Vt dical nal [address] [place] [address] Office Building One 2020-11-24 2020-11-24 [facility] 1.2.840.114 [id number] Univers 00:00:00 00:00:00 [facility] [id number] it y of [place] [id number] [place] as Professio [phone] Vt dical nal [facility] Office Building One 2020-11-17 2020-11-17 [facility] 1.2.840.114 [id number] Univers 00:00:00 00:00:00 [facility] [id number] it y of [place] [id number] [place] as Professio [phone] Vt dical nal [facility] Office Building One 2020-11-03 2020-11-03 [facility] 1.2.840.114 [id number] Univers 00:00:00 00:00:00 [facility] [id number] it y of [place] [id number] [place] as Professio [phone] Vt dical nal [address] [place] [address] Office Building One 2020-10-27 2020-10-27 [facility] 1.2.840.114 [id number] Univers 00:00:00 00:00:00 [facility] [id number] it y of [place] [id number] [place] Professio [phone] [address] One 2020-10-22 2020-10-22 [facility] 1.2.840.114 [id number] Univers 00:00:00 00:00:00 [facility] [id number] it y of [place] [id number] [place] Professio [phone] [address] One 2020-10-11 2020-10-11 [facility] 1.2.840.114 [id number] Univers 00:00:00 00:00:00 [facility] [id number] it y of [place] [id number] [place] Professio [phone] [address] One 2020-10-09 2020-10-09 [facility] [facility] 1.2.840.114 [id number] Univers 00:00:00 00:00:00 [facility] 350.1.13.10 it y of [place] 4.2.7.2.686 [place] as Professio [phone] [address] One 2020-09-30 2020-09-30 [facility] 1.2.840.114 [id number] Univers 00:00:00 00:00:00 [facility] 350.1.13.10 it y of [place] 4.2.7.2.686 [place] as Professio [phone] [address] One 2020-09-06 2020-09-06 [facility] 1.2.840.114 [id number] Univers 00:00:00 00:00:00 [facility] 350.1.13.10 it y of [place] 4.2.7.2.686 [place] as Professio [phone] [address] One 2020-07-12 2020-07-12 [facility] 1.2.840.114 [id number] Univers 00:00:00 00:00:00 Outreach Marco [facility] 350.1.13.10 i ty of Danilo [facility] [place] [phone] [address] 2020-06-30 2020-06-30 Telephone Lily RIDWIGHT 1.2.840.114 [id number] Univers 00:00:00 00:00:00 [facility] 350.1.13.10 it y of [place]ny [place] 4.2.7.2.686 [place] as Professio [phone] [address] Office Building One 2020-05-25 2020-05-25 Office Jayme, ISAI 1.2.840.114 [id number] [facility] 11:03:55 11:47:19 Visit Lauren AMBULATOR 350.1.13.21 College Y 0.2.7.2.686 of [phone] [facility] 370 e 2020-05-23 2020-05-23 Outpatient CARL HUFF [facility] [id number] Univers 09:15:00 09:15:00 ity [facility] 2020-05-22 2020-05-22 Urgent Provider, [facility] 1.2.840.114 [id number] Univers 16:11:24 17:33:14 Care Angel [facility] 350.1.13.10 ity of [place] 4.2.7.2.686 [place] as Professio [phone] [address] Office Building One 2020-05-22 2020-05-22 Urgent Provider, [facility] 1.2.912.483 [id number] 16:11:24 17:33:14 Care [facility] 350.1.13.10 Care [place] 4.2.7.2.686 Professio [phone] nal [facility] Office Building One 2020-05-22 2020-05-22 Outpatient Lilia MARAVILLA [facility] [id number] Univers 16:40:00 16:40:00 RAMONAHCA [facility] 2020-05-19 2020-05-19 Outpatient CARL HUFF [facility] [id number] Univers 14:30:00 14:30:00 [facility] 2020-05-17 2020-05-17 [facility] 1.2.840.114 [id number] Univers 00:00:00 00:00:00 [facility] 350.1.13.10 it y of [place] 4.2.7.2.686 [place] as Professio [phone] [address] Office [facility] One 2020-05-17 2020-05-17 [facility] 1.2.840.114 [id number] Univers 00:00:00 00:00:00 [facility] 350.1.13.10 it y of [place] 4.2.7.2.686 [place] as Professio [phone] [address] Office [facility] One 2020-05-17 2020-05-17 [facility] 1.2.840.114 [id number] 00:00:00 00:00:00 [facility] 350.1.13.10 [place] 4.2.7.2.686 Professio [phone] [place] [address] Office Building One 2020-05-17 2020-05-17 [facility] 1.2.840.114 [id number] 00:00:00 00:00:00 [facility] 350.1.13.10 [place] 4.2.7.2.686 Professio [phone] [place] [address] Office Building One 2020-05-11 2020-05-11 [facility] 1.2.840.114 [id number] Univers 00:00:00 00:00:00 [facility] 350.1.13.10 it y of [place] 4.2.7.2.686 [place] as Professio [phone] [address] Office [facility] One 2020-05-11 2020-05-11 [facility] 1.2.840.114 [id number] 00:00:00 00:00:00 [facility] 350.1.13.10 [place] 4.2.7.2.686 Professio [phone] [place] [address] Office Building One 2020-05-04 2020-05-04 [facility] 1.2.840.114 [id number] Univers 00:00:00 00:00:00 [facility] 350.1.13.10 it y of [place] 4.2.7.2.686 [place] as Professio [phone] [address] Office [facility] One 2020-05-04 2020-05-04 [facility] 1.2.840.114 [id number] 00:00:00 00:00:00 [facility] 350.1.13.10 [place] 4.2.7.2.686 Professio [phone] [place] [address] Office [facility] One 2020-05-02 2020-05-02 Patient [facility] 1.2.840.114 [id number] Univers 00:00:00 00:00:00 Secure Msg [facility] 350.1.13.10 ity of [place] 4.2.7.2.686 [place] as Professio [phone] [address] Office [facility] One 2020-05-02 2020-05-02 Patient [facility] 1.2.840.114 [id number] 00:00:00 00:00:00 Secure Cag [facility] 350.1.13.10 [place] 4.2.7.2.686 Professio [phone] [address] One 2020-04-30 2020-04-30 [facility] 1.2.840.[id number] [facility] 00:00:00 00:00:00 [facility] 350.1.13.10 it y of [place] 4.2.7.2.686 [place] as Professio [phone] [address] Office [facility] One 2020-04-30 2020-04-30 [facility] 1.2.840.114 [id number] 00:00:00 00:00:00 [facility] 350.1.13.10 [place] 4.2.7.2.686 Professio [phone] [place] [address] Office [facility] One 2020-04-26 2020-04-26 Outpatient R [facility] [id number] [facility] 09:00:00 09:00:00 DOROTHEA ity of [facility] 2020-04-20 2020-04-20 Office Carl Vicente [facility] 1.2.249.143 [id number] Univers 14:52:53 15:33:34 Visit Bautista Delgado 350.1.13.10 i ty of [place] [phone] Me dical [address] 2020-04-20 2020-04-20 Office Carl Vicente [facility] 1.2.934.462 [id number] 14:52:53 15:33:34 Visit Bautista Delgado 350.1.13.10 [place] 4.2.7.2.686 Professio [phone] [address] 2020-04-20 2020-04-20 Outpatient R VICENTE CARL [facility] [id number] Univers 15:00:00 15:00:00 ity of [facility] 2020-04-20 2020-04-20 Orders Doctor JEOVANY 1.2.840.114 [id number] Univers 00:00:00 00:00:00 Only Unassigned, JONAS 350.1.13.10 ity of [place] [facility] 4.2.7.2.686 [place] as [phone] [address] 2020-04-20 2020-04-20 Orders Doctor JEOVANY 1.2.840.114 [id number] 00 00:00:00 00:00:00 Only Unassigned, JONAS 350.1.13.10 [place] [facility] 4.2.7.2.686 [phone] [facility] 2020-04-12 2020-04-12 [facility] 1.2.840.114 [id number] Univers 06:39:00 10:45:00 Encounter Bautista Delgado 350.1.13.10 ity of [place] Surgical [phone] [address] 2020-04-11 2020-04-11 Trimmer Operator Three Knife Mayte, Adc Lab Main [facility] 1.2.8 40.114 [id number] Univers 15:28:19 15:43:19 Visit Carl Vicente 350.1.13.10 ity of [place] [phone] Vt jude kramer [address] [facility] 2020-04-11 2020-04-11 Laboratory Only, Adc Test [facility] 1.2.840. 114 [id number] Univers 15:20:49 15:35:49 Only Carl Vicente 350.1.13.10 ity of [place]2.[place].2.686 [place] [phone] [address] 2020-04-11 2020-04-11 Outpatient R CARL VICENTE [facility] [id number] Univers 15:30:00 15:30:00 ity of [facility] 2020-04-11 2020-04-11 Outpatient R [facility] [id number] Univers 13:00:00 13:00:00 ity of [facility] 2020-04-11 2020-04-11 Telephone Carl Vicente [facility] 1..840.114 [id number] Univers 00:00:00 00:00:00 Bautista Delgado 350.1.13.10 i ty of [place] [phone] Vt dicsaundra kramer [address] [facility] 2020-04-06 2020-04-06 Outpatient R DELIO [facility] [id number] Univers 13:00:00 13:00:00 KAMALA ity of [facility] 2020-04-06 2020-04-06 Telephone [facility] 1.2.840.114 [id number] Univers 00:00:00 00:00:00 [facility] 350.1.13.10 it y of [place] 4.2.7.2.686 [place] as Professio [phone] Vt dical nal 0[address] [facility] 2020-04-04 2020-04-04 Patient [facility] 1.2.840.114 [id number] Univers 00:00:00 00:00:00 Secure Msg [facility] 350.1.13.10 ity of [place] 4.2.7.2.686 [place] as Professio [phone] Vt dical nal 044 [facility] 2020-04-01 2020-04-01 Outpatient R LILY [facility] [id number] Univers 12:30:00 12:30:00 THONG ity of [facility] 2020-04-01 2020-04-01 Trimmer Operator Three Knife Tamiko Hu Lab Main [facility] 1.2.8 40.114 [id number] Univers 12:01:51 12:16:51 Visit Thong Bautista Edzachary [place] 350.1.1 3.10 ity of [place] [phone] [facility] [address] [facility] 2020-04-01 2020-04-01 Orders Doctor JEOVANY 1.2.840.114 [id number] Univers 00:00:00 00:00:00 Only Unassigned, JONAS 350.1.13.10 ity of [place] [facility] 4.2.7.2.686 [place] as [phone] [address] 2020-03-29 2020-03-29 Telephone [facility] 1.2.840.114 [id number] Univers 00:00:00 00:00:00 Thong [facility] 350.1.13.10 it y of [place] 4.2.7.2.686 [place] as Professio [phone] [facility] 0[address] [facility] 2020-03-28 2020-03-28 Telephone [facility] 1.2.840.114 [id number] Univers 00:00:00 00:00:00 Thong [facility] 350.1.13.10 it y of [place] 4.2.7.2.686 [place] as Professio [phone] [facility] [address] [place] Office [facility] 2020-03-22 2020-03-22 Outpatient R CARO [facility] [id number] Univers 09:00:00 09:00:00 LEATHA ity of [facility] 2020-03-18 2020-03-18 [facility] 1.2.840.114 [id number] Univers 06:09:00 08:45:00 Encounter Neyda Delgado 350.1.13.10 ity of [place] [phone] [facility] [address] [place] 2020-03-18 2020-03-18 Orders Doctor JEOVANY 1.2.840.114 [id number] Univers 00:00:00 00:00:00 Only Unassigned, JONSA 350.1.13.10 ity of [place] [facility] 4.2.7.2.686 [place] as [phone] [facility] [address] [place] 2020-03-17 2020-03-17 Outpatient R MANUEL [facility] [id number] Univers 13:15:00 13:15:00 NEYDA ityue [facility] 2020-03-16 2020-03-16 Office Carl Vicente [facility] 1.2.273.437 [id number] Univers 14:14:54 15:03:14 Visit Bautista Delgado 350.1.13.10 i ty of [place] [phone] Vt dical nal [address] [facility] 2020-03-16 2020-03-16 Laboratory Only, Adc Test [facility] 1.2.840. 114 [id number] Univers 13:54:33 14:09:33 Only Edinson Jacksonel Lisa 350.1.13.10 ity of [place] [phone] [facility] [address] [place] 2020-03-16 2020-03-16 Outpatient R CARL VICENTE [facility] [id number] Univers 13:45:00 13:45:00 ity of [facility] 2020-03-16 2020-03-16 Orders Doctor THAYER 1.2.840.114 [id number] Univers 00:00:00 00:00:00 Only Unassigned, JONAS 350.1.13.10 ity of [place] [facility] 4.2.7.2.686 [place] as [phone] [address] 2020-03-16 2020-03-16 Prep For Carl Vicente [facility] 1.2.840.114 [id number] Univers 00:00:00 00:00:00 Surgery Cam [place] 350.1.13.10 i ty of [place]2.[place] [phone] Vt dical nal [address] [facility] 2020-03-04 2020-03-04 [facility] 1..840.114 [id number] Univers 00:00:00 00:00:00 [facility] 350.1.13.10 it y of [place] 4.2.7.2.686 [place] as Professio [phone] Vt dical nal 044 [facility] One 2020-03-03 2020-03-03 [facility] 1.2.840.114 [id number] Univers 13:53:18 23:59:00 Encounter Leatha Gonzalezton 350.1.13.10 ity of [place] [phone] [facility] [address] [place] 2020-03-03 2020-03-03 Out[facility] [id number] Univers 15:00:00 15:00:00 LEATHA ity [facility] 2020-03-03 2020-03-03 [facility] 1.2.840.114 [id number] Univers 13:51:31 13:52:00 Encounter Leatha Gonzalezton 350.1.13.10 ity of [place].2.[place] [phone] [facility] [address] [place] 2020-03-01 2020-03-01 Office Jules [facility] 1.2.747.074 [id number] Univers 15:16:00 16:05:01 Visit Bautista Delgado 350.1.13.10 i ty of [place].2.[place] [phone] Vt dical nal [address] [facility] 2020-03-01 2020-03-01 Outpatient R JULES [facility] [id number] Univers 15:30:00 15:30:00 ity of [facility] 2020-03-01 2020-03-01 [facility] 1.2.784.159 [id number] Univers 14:00:57 15:09:44 Visit Neyda Delgado 350.1.13.10 i ty of [place].2.[place] [phone] Vt dical nal [address] [facility] 2020-03-01 2020-03-01 [facility] 1.2.840.114 [id number] Univers 00:00:00 00:00:00 Surgery Felicitas Delgado 350.1.13.10 ity of [place]2.[place] [phone] [facility] [address] [facility] 2020-03-01 2020-03-01 Refill [facility] 1.2.840.114 [id number] Univers 00:00:00 00:00:00 [facility] 350.1.13.10 it y of [place] 4.2.7.2.686 [place] as Professio [phone] [facility] 044 [facility] 2020-03-01 2020-03-01 Orders Doctor JEOVANY 1.2.840.114 [id number] Univers 00:00:00 00:00:00 Only Unassigned, JONAS 350.1.13.10 ity of [place] [facility] 4.2.7.2.686 [place] as [phone] [address] 2020-02-29 2020-02-29 Telephone [facility] 1.2.840.114 [id number] Univers 00:00:00 00:00:00 [facility] 350.1.13.10 it y of [place] 4.2.7.2.686 [place] as Professio [phone] [facility] 0[address] [facility] 2020-02-29 2020-02-29 Patient Carl Vicente [facility] 1.2.376.498 [id number] Univers 00:00:00 00:00:00 Secure Msg Bautista [place] 350.1.13.10 ity of [place] [phone] Vt dical nal [address] [facility] 2020-02-29 2020-02-29 Refill [facility] 1.2.840.114 [id number] Univers 00:00:00 00:00:00 [facility] 350.1.13.10 it y of [place] 4.2.7.2.686 [place] as Professio [phone] Me dical nal 044 [facility] 2020-02-25 2020-02-25 Office [facility] 1.2.840.114 [id number] Univers 10:25:13 10:40:13 Visit Kamala Mcmillan [facility] 350.1.13.10 it y of Surgical 4.2.7.2.686 [place] as Specialti [phone] Vt dical es 198 [facility] 2020-02-25 2020-02-25 Outpatient [facility] [id number] Univers 10:15:00 10:15:00 KAMALA campbell [facility] 2020-02-22 2020-02-22 Urgent Provider, [facility] 1.2.840.114 [id number] Univers 15:52:44 16:48:53 Care Gladys Sungthia [facility] 350.1.13.10 ity of [place] 4.2.7.2.686 [place] as Professio [phone] Vt dical nal 044 [facility] 2020-02-22 2020-02-22 Outpatient R ANA LILIA [facility] [id number] [facility] 16:20:00 16:20:00 FELIPE campbell [facility] 2020-02-22 2020-02-22 Telephone [facility] 1.2.840.114 [id number] Univers 00:00:00 00:00:00 [facility] 350.1.13.10 it y of [place] 4.2.7.2.686 [place] as Professio [phone] Vt dical nal 0[address] [facility] 2020-02-19 2020-02-19 [facility]phone [facility] 1.2.840.114 [id number] Univers 00:00:00 00:00:00 Leathabill Delgado 350.1.13.10 i ty of [place].2.[place] [phone] Vt dical nal [address] [facility] 2020-02-19 2020-02-19 [facility] 1.2.840.114 [id number] Univers 00:00:00 00:00:00 [facility] 350.1.13.10 it y of [place] 4.2.7.2.686 [place] as Professio [phone] Vt dical nal [address] [place] Office [facility] 2020-02-18 2020-02-18 [facility] 1.2.974.951 [id number] Univers 12:45:00 23:59:00 Encounter Thong Delgado 350.1.13.10 ity of [place] [phone] [address] 2020-02-18 2020-02-18 Outpatient R [facility] [id number] Univers 00:00:00 00:00:00 THONG ity of [facility] 2020-02-17 2020-02-17 Trimmer Operator Three Knife 2, Adc Lab [facility] 1.2.840.114 [id number] Univers 11:10:06 11:25:06 Visit Thong Bautista Jonny [place] 350.1.1 3.10 ity of [place].2.[place] [phone] Vt jude nal [address] [facility] 2020-02-17 2020-02-17 Outpatient R [facility] [id number] Univers 10:45:00 10:45:00 ity of [facility] 2020-02-17 2020-02-17 Telephone [facility] 1.2.840.114 [id number] Univers 00:00:00 00:00:00 Thong [facility] 350.1.13.10 it y of [place] 4.2.7.2.686 [place] as Professio [phone] Vt shantelleal nal [address] [place] [address] 2020-02-17 2020-02-17 Telephone [facility] 1.2.840.114 [id number] Univers 00:00:00 00:00:00 [facility] 350.1.13.10 it y of [place] 4.2.7.2.686 [place] as Professio [phone] Vt dical nal 044 [facility] 2020-02-16 2020-02-16 Office [facility] 1.2.501.870 [id number] Univers 14:01:54 16:37:21 Visit Leatha Delgado 350.1.13.10 i ty of [place]2.[place] [phone] [facility] [address] [facility] 2020-02-16 2020-02-16 Outpatient R CARO [facility] [id number] Univers 13:45:00 13:45:00 LEATHA campbell [facility] 2020-01-27 2020-01-27 Telephone [facility] 1.2.840.114 [id number] Univers 00:00:00 00:00:00 [facility] 350.1.13.10 it y of [place] 4.2.7.2.686 [place] as Professio [phone] [facility] [address] [place] Office [facility] 2020-01-27 2020-01-27 Orders Doctor JEOVANY 1.2.840.114 [id number] Univers 00:00:00 00:00:00 Only Unassigned, JONAS 350.1.13.10 ity of [place] [facility] 4.2.7.2.686 [place] as [phone] [address] 2020-01-13 2020-01-13 Office [facility] 1.2.840.114 [id number] Univers 13:58:09 14:35:39 Visit [facility] 350.1.13.10 it y of [place] 4.2.7.2.686 [place] as Professio [phone] [address] 2020-01-13 2020-01-13 Outpatient R LILY [facility] [id number] Univers 14:00:00 14:00:00 [facility] 2019-10-25 2019-10-25 Refill [facility] 1.2.840.114 [id number] Univers 00:00:00 00:00:00 [facility] 350.1.13.10 it y of [place] 4.2.7.2.686 [place] as Professio [phone] [address] 2019-08-27 2019-08-27 Refill [facility] 1.2.840.114 [id number] Univers 00:00:00 00:00:00 [facility] 350.1.13.10 it y of [place] 4.2.7.2.686 [place] as Professio [phone] Vt dical nal [address] [facility] 2019-08-21 2019-08-21 Telephone Lily [facility] 1.2.840.114 [id number] Univers 00:00:00 00:00:00 Thong Abbott 350.1.13.10 it y of [place] 4.2.7.2.686 [place] Professio [phone] [facility] nal [address] [place] [address] 2019-08-19 2019-08-19 Outpatient R LILY [facility] [id number] Univers 15:00:00 15:00:00 THONG ity of [facility] 2019-08-19 2019-08-19 Telemedici Lily [facility] 1.2.840.114 [id number] Univers 12:12:52 12:27:52 ne Visit Thong Delgado 350.1.13.10 ity of [place] [phone] Vt dical nal [address] [place] [address] 2019-08-19 2019-08-19 Trimmer Operator Three Knife 2, Adc Lab [facility] 1.2.840.114 [id number] Univers 10:35:17 10:50:17 Visit Thong Bautista 350.1.1 3.10 ity of [place].2.[place] [phone] Vt dical [facility] [address] [facility] 2019-08-19 2019-08-19 Outpatient R [facility] [id number] Univers 09:00:00 09:00:00 ity of [facility] 2019-08-18 2019-08-18 Patient Doctor [facility] 1.2.840.114 [id number] Univers 00:00:00 00:00:00 Secure Msg UnassignedLisa 350.1.13.10 ity of [place] [phone] Vt dical nal [address] [place] [address] 2019-07-28 2019-07-28 Refill Lily [facility] 1.2.840.114 [id number] Univers 00:00:00 00:00:00 [facility] 350.1.13.10 it y of [place] 4.2.7.2.686 [place] Professio [phone] [address] Office Building One 2019-07-24 2019-07-[facility] 1.2.840.114 [id number] Univers 00:00:00 00:00:00 [facility] 350.1.13.10 it y of [place] 4.2.7.2.686 [place] as Professio [phone] [address] Office Building One 2019-07-15 2019-07-15 [facility] 1.2.840.114 [id number] Univers 00:00:00 00:00:00 [facility] 350.1.13.10 it y of [place] 4.2.7.2.686 [place] as Professio [phone] [address] Office Building One 2019-07-14 2019-07-14 [facility] 1.2.840.114 [id number] Univers 00:00:00 00:00:00 [facility] 350.1.13.10 it y of [place] 4.2.7.2.686 [place] as Professio [phone] [address] Office Building One 2019-07-09 2019-07-09 Office [facility] 1.2.840.114 [id number] Univers 11:03:56 11:43:32 Visit [facility] 350.1.13.10 it y of [place] 4.2.7.2.686 [place] as Professio [phone] [address] Office Building One 2019-07-09 2019-07-09 Outpatient R [facility] [id number] Univers 11:30:00 11:30:00 THONG ity of [facility] 2019-07-09 2019-07-09 Telephone [facility] 1.2.840.114 [id number] Univers 00:00:00 00:00:00 [facility] 350.1.13.10 it y of [place] 4.2.7.2.686 [place] as Professio [phone] Vt dical nal [address] [place] [address] Office [facility] One 2019-07-09 2019-07-09 [facility] 1.2.840.114 [id number] Univers 00:00:00 00:00:00 [facility] 350.1.13.10 it y of [place] 4.2.7.2.686 [place] as Professio [phone] Vt dical nal [address] [place] [address] One 2019-07-08 2019-07-08 Patient [facility] 1.2.840.114 [id number] Univers 00:00:00 00:00:00 Secure Msg [facility] 350.1.13.10 ity of [place] [id number] [place] [facility] [phone] Vt dicor nal [address] [place] [address] One 2019-07-08 2019-07-08 Patient [facility] [id number] Univers 00:00:00 00:00:00 Secure Msg [facility] [id number] [facility] [place] [id number] [place] [facility] [phone] Vt dicor nal [address] [place] [address] One 2019-07-08 2019-07-08 Patient [facility] [id number] Univers 00:00:00 00:00:00 Secure Msg [facility] [id number] [facility] [place] [id number] [place] [facility] [phone] Vt dical nal [address] [place] [address] Office [facility] One 2019-07-07 2019-07-07 [facility] [id number] Univers 00:00:00 00:00:00 [facility] [id number] [facility] [place] [id number] [place] [facility] [phone] Vt dicor nal 80 [place] [address] One 2019-07-03 2019-07-03 Telephone [facility] [id number] Univers 00:00:00 00:00:00 [facility] [id number] it y of [place] [id number] [place] as Professio [phone] Vt dic[address] Office [facility] 2019-07-03 2019-07-03 Patient [facility] [id number] Univers 00:00:00 00:00:00 Secure Msg [facility] [id number] ity of [place] [id number] [place] as Professio [phone] [address] 2019-07-02 2019-07-02 Office [facility] [id number] Univers 11:37:47 11:52:47 Visit [facility] [id number] it y of [place] [id number] [place] as Professio [phone] [address] Office [facility] 2019-07-02 2019-07-02 Outpatient R [facility] [id number] Univers 11:30:00 11:30:00 THONG ity of [facility] 2019-07-02 2019-07-02 Orders Doctor JEOVANY [id number] Univers 00:00:00 00:00:00 Only Unassigned, JONAS [id number] ity of [facility] [id number] [place] as [phone] [address] 2019-06-28 2019-06-28 Refill [facility] [id number] Univers 00:00:00 00:00:00 [facility] [id number] it y of [place] [id number] [place] as Professio [phone] [address] 2019-06-11 2019-06-[id number] Univers 00:00:00 00:00:00 [facility] [id number] it y of [place] [id number] Preston as Professio [phone] Vt dical nal [address] One 2019-06-11 2019-06-11 TAWNYA Devries [id number] Univers 00:00:00 00:00:00 Karoline MULTISPEC [id number] ity of [place] [id number] [place] s [place] [phone] [facility] cira AND CHEL[place] [address] [facility] Results This patient has no known results.
[2022-06-20] MEDS ORDERED: ONDANSETRON 4 MG/2 ML VIAL ONE (10:17)
[2022-06-20] MEDS ORDERED: MORPHINE 4 MG/ML SYR ONE (10:17)
[2022-06-20 10:22] LABS: Absolute Lymphocytes (CBC) 1.7 K/uL (0.7-4.9); Hematocrit 44.3 % (36.0-45.0); Lymphocytes % 23.8 % (15.3-44.8); MPV 8.2 fL (7.6-11.3); RBC Red Blood Cell Count 4.66 M/uL (3.86-4.86)
[2022-06-20 10:30] LABS: Albumin 3.7 g/dL (3.4-5.0); Bilirubin Total 1.2 mg/dL (0.2-1.0); Potassium 3.6 mmol/L (3.5-5.1); Protein, Total 7.8 g/dL (6.4-8.2)
--- NOTE | 2022-06-20 11:07 | RAD REPORT ---
EXAM DESCRIPTION: CTAbdomen Pelvis W Contrast - 06/20/2022 10:45 am CLINICAL HISTORY: pelvic pain COMPARISON: Abdomen Pelvis W Contrast dated 11/12/2021; Abdomen Pelvis W Contrast dated 05/22/2020 ; Cholangiogram dated 11/13/2021; Abdomen Exam Limited dated 11/12/2021 TECHNIQUE: CT of the abdomen and pelvis was performed. All CT scans are performed using dose optimization technique as appropriate and may include automated exposure control or mA/KV adjustment according to patient size. FINDINGS: Lower chest: No acute abnormality. Liver: Minimal intrahepatic biliary duct dilatation. Small hypervascular focus in segment 4 of the li enid measuring 9 millimeters. This is unchanged since 11/12/2021. There is a hypervascular lesion in t he hepatic dome measuring 2.2 cm. This was also present on prior exams. Biliary: Cholecystectomy. Stomach: No significant focal abnormality. Duodenum: No significant focal abnormality. Pancreas: No significant abnormality. Spleen: No significant abnormality. Adrenal: No suspicious lesions. Kidney/ureter: No hydronephrosis. No renal calculi. Probable renal sinus cysts. Retroperitoneum: No retroperitoneal adenopathy. Vascular: No aneurysm. Bowel: No significant focal abnormality. Normal appendix. Peritoneum: No ascites or free air. Bladder: Grossly unremarkable. Reproductive: No adnexal masses. Bones: No acute fracture. Other: n/a IMPRESSION: No acute intra-abdominal or pelvic finding. Incidental findings as noted above.
[2022-06-20 11:34] LABS: Urine Blood Trace-lysed (Negative); Urine Glucose Negative (Negative); Urine Protein Negative (Negative); Urine Specific Gravity 1.015 (1.005-1.030); Urine pH 7.5 (5.0-7.0)
[2022-06-20] MEDS ORDERED: KETOROLAC 30 MG/ML INJ ONE (11:39)
--- NOTE | 2022-06-20 12:15 | RAD REPORT ---
EXAM DESCRIPTION: US - Transvaginal Study Probe - 06/20/2022 12:03 pm CLINICAL HISTORY: pelvic pain, r/o torsion Pelvic pain. COMPARISON: Transvaginal Study Probe dated 05/07/2022; Abdomen Pelvis W Contrast dated 06/20/2022 FINDINGS: The uterus is normal in size, shape and echotexture. The uterus measures 8.1 cm. Fibroid n oted in the fundus measuring 12 millimeters. A smaller subserosal presumed fibroid with coarse calcif ication measuring 12 millimeters is noted. The endometrial stripe is normal measuring 2 millimeters. Neither ovary visualized, possibly due to bowel gas. No adnexal mass. . No significant pelvic ascites. IMPRESSION: Neither ovary visualized. No adnexal mass identified. Note that neither ovary was visual ized on the ultrasound from 05/07/2022. Small uterine fibroids.
--- NOTE | 2022-06-20 12:44 | ER ---
Nurse's Notes [facility] Name: Mar Finney Age: 57 yrs Sex: Female : 1965 Arrival Date: 06/20/2022 Time: 09:25 Bed 13 Private MD: Linda Benton; Kinga Stovall K Diagnosis: Pelvic and perineal pain Presentation: 06/20 09:49 Chief complaint: Patient states: was with Dr. 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 This has been going on for month where I have a pelvic pain and discomfort and it moves into my back. She ruled out a UTI in her office this morning but i feel like something is flling out. Coronavirus screen: Vaccine status: Patient reports being unvaccinated. Client denies travel out of the [place] in the last 14 days. Ebola Screen: Patient negative for fever greater than or equal to 101.5 degrees Fahrenheit, and additional compatible Ebola Virus Disease symptoms Patient denies exposure to infectious person. Patient denies travel to an Ebola-affected area in the 21 days before illness onset. Initial Sepsis Screen: Does the patient meet any 2 criteria? No. Patient's initial sepsis screen is negative. Does the patient have a suspected source of infection? No. Patient's initial sepsis screen is negative. Risk Assessment: Do you want to hurt yourself or someone else? Patient reports no desire to harm self or others. 09:49 Method Of Arrival: Ambulatory [facility] 09:49 Acuity: TIMA 3 [facility] 10:13 Onset of symptoms was May 20, 2022. ap3 Triage Assessment: 09:57 General: Appears uncomfortable, obese, Behavior is calm, cooperative, appropriate for [facility] age. Pain: Complains of pain in pelvis. 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 - Social history:: Smoking status: Patient denies any tobacco usage or history of. Screenin:13 [facility] ED Fall Risk Assessment (Adult) History of falling in the last 3 months, ap3 including since admission No falls in past 3 months (0 pts). Abuse screen: Denies threats or abuse. Nutritional screening: No deficits noted. Tuberculosis screening: No symptoms or risk factors identified. Assessment: 10:39 General: Appears uncomfortable, Behavior is calm, cooperative, appropriate for age. ap3 Pain: Complains of pain in pelvis Pain radiates to low back area. Neuro: Level of Consciousness is awake, alert, obeys commands, Oriented to person, place, time, situation. Cardiovascular: Patient's skin is warm and dry. Respiratory: Airway is patent Respiratory effort is even, unlabored, Respiratory pattern is regular, symmetrical. 11:35 Reassessment: Pt c/o pelvic pain. Notified ERP. See [facility] for orders. ld1 Vital Signs: 09:49 BP 162 / 80; Pulse 88; Resp 18; Temp 98.6; Pulse Ox 100% ; Weight 95.25 kg; Height 5 5 ft. 7 in. (170.18 cm); Pain 8/10; 11:35 BP 159 / 76; Pulse 84; Resp 18; Pulse Ox 100% on R/A; Pain 7/10; ld1 09:49 Body Mass Index 32.89 (95.25 kg, 170.18 cm) 5 ED Course: 09:25 Patient arrived in ED. as 09:25 Kinga Stovall MD is Private Physician. as 09:25 Kinga Stovall MD is Private Physician. as 09:26 Linda Benton is Private Physician. as 09:41 [facility] Villa [facility] 09:41 Aleksandr Jaffe MD is Attending Physician. [facility] 09:56 Olga Martinez, RAFI is Primary Nurse. ap3 09:57 Triage completed. 5 09:57 Arm band placed on right wrist. jh5 10:13 Patient has correct armband on for positive identification. Bed in low position. Call ap3 light in reach. Side rails up X 1. Pulse ox on. NIBP on. Door closed. Noise minimized. 10:13 Inserted saline lock: 20 gauge in left antecubital area, using aseptic technique. Blood ap3 collected. 12:42 Kinga Stovall MD is Referral Physician. [facility] 13:44 No provider procedures requiring assistance completed. IV discontinued, intact, ld1 bleeding controlled, No redness/swelling at site. Administered Medications: 10:00 Drug: morphine 4 mg Route: IVP; Infused Over: 4 mins; Site: left antecubital; ap3 11:03 Follow up: Response: No adverse reaction; Pain is decreased ap3 10:00 Drug: Zofran (Ondansetron) 4 mg Route: IVP; Site: left antecubital; ap3 11:04 Follow up: Response: No adverse reaction ap3 11:35 Drug: Ketorolac 30 mg Route: IVP; Site: left antecubital; ld1 Medication: 10:14 VIS not applicable for this client. ap3 Outcome: 12:43 Discharge ordered by . vikas 13:44 Discharged to home ambulatory. ld1 13:44 Condition: stable 13:44 Discharge instructions given to patient, Instructed on discharge instructions, follow up and referral plans. Demonstrated understanding of instructions, follow-up care, medications. 13:44 Patient left the ED. ld1 Signatures: Mayo Villa PA PA jmm Martinez, Amelia as Prokisch, Amanda RN RN ap3 Cherie Razo RN RN ld1 Doris Sal RN RN jh5
--- NOTE | 2022-06-20 12:44 | EDPHYS ---
Physician Documentation [facility] Name: Mar Finney Age: 57 yrs Sex: Female : 1965 Arrival Date: 06/20/2022 Time: 09:25 Bed 13 Private MD: Linda Benton; Kinga Stovall K ED Physician Aleksandr Jaffe HPI: 06/20 09:51 This 57 yrs old Female presents to ER via Ambulatory with complaints of Pelvic Pain. jmm 09:51 The patient presents with pelvic pain. Onset: The symptoms/episode began/occurred jmm gradually. Modifying factors: The symptoms are alleviated by nothing, the symptoms are aggravated by nothing. Is a 57-year-old female with history of asthma and hypertension the presents emerged department with complaints of pelvic pain beginning approximately a week ago which radiates into her low back. Denies dysuria, vomiting, hematuria. Patient was evaluated by her crab catcher who recommended ER evaluation due to the pelvic pain. Denies fever.. 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 - Social history:: Smoking status: Patient denies any tobacco usage or history of. ROS: 09:51 Constitutional: Negative for fever, chills, and weight loss, Cardiovascular: Negative jmm for chest pain, palpitations, and edema, Respiratory: Negative for shortness of breath, cough, wheezing, and pleuritic chest pain. 09:51 : Positive for pelvic pain. 09:51 All other systems are negative. Exam: 09:51 Constitutional: This is a well developed, well nourished patient who is awake, alert, jmm and in no acute distress. Head/Face: atraumatic. Eyes: EOMI, no conjunctival erythema appreciated ENT: Moist Mucus Membranes Neck: Trachea midline, Supple Chest/axilla: Normal chest wall appearance and motion. Cardiovascular: Regular rate and rhythm. No edema appreciated Respiratory: Normal respirations, no respiratory distress appreciated Abdomen/GI: Non distended Back: Normal ROM Skin: General appearance color normal MS/ Extremity: Moves all extremities, no obvious deformities appreciated, no edema noted to the lower extremities Neuro: Awake and alert Psych: Behavior is normal, Mood is normal, Patient is cooperative and pleasant Vital Signs: 09:49 BP 162 / 80; Pulse 88; Resp 18; Temp 98.6; Pulse Ox 100% ; Weight 95.25 kg; Height 5 5 ft. 7 in. (170.18 cm); Pain 8/10; 11:35 BP 159 / 76; Pulse 84; Resp 18; Pulse Ox 100% on R/A; Pain 7/10; ld1 09:49 Body Mass Index 32.89 (95.25 kg, 170.18 cm) 5 MDM: 09:51 Patient medically screened. tio 12:41 Data reviewed: vital signs, nurses notes. I considered the following discharge [facility] prescriptions or medication management in the emergency department Medications were administered in the Emergency Department. See MAR. Counseling: I had a detailed discussion with the patient and/or guardian regarding: the historical points, exam findings, and any diagnostic results supporting the discharge/admit diagnosis, lab results, radiology results, the need for outpatient follow up, to return to the emergency department if symptoms worsen or persist or if there are any questions or concerns that arise at home. ED course: Pain is alleviated in the ED. Patient will follow-up with Dr. Stovall for further evaluation. Otherwise given strict return precautions. patient understood and agrees with the plan of care. . 06/20 09:52 Order name: CBC with Diff [facility] 06/20 09:52 Order name: CMP [facility] 06/20 09:52 Order name: Lipase [facility] 06/20 10:30 Order name: Comprehensive Metabolic Panel; Complete Time: 10:37 [facility] 06/20 10:30 Order name: Lipase; Complete Time: 10:37 [facility] 06/20 10:55 Order name: CBC with Automated Diff; Complete Time: 10:56 [facility] 06/20 09:52 Order name: CT Abd/Pelvis - IV Contrast Only [facility] 06/20 11:08 Order name: CT; Complete Time: 11:08 [facility] 06/20 11:24 Order name: US Transvaginal Study (Probe) [facility] 06/20 11:35 Order name: Urine Dipstick-Ancillary; Complete Time: 11:50 [facility] 06/20 12:16 Order name: US; Complete Time: 12:23 [facility] 06/20 09:52 Order name: IV Saline Lock; Complete Time: 10:12 [facility] 06/20 09:52 Order name: Labs collected and sent; Complete Time: 10:12 [facility] 06/20 09:53 Order name: Urine Dipstick-Ancillary (obtain specimen); Complete Time: 11:35 [facility] Administered Medications: 10:00 Drug: morphine 4 mg Route: IVP; Infused Over: 4 mins; Site: left antecubital; ap3 11:03 Follow up: Response: No adverse reaction; Pain is decreased ap3 10:00 Drug: Zofran (Ondansetron) 4 mg Route: IVP; Site: left antecubital; ap3 11:04 Follow up: Response: No adverse reaction ap3 11:35 Drug: Ketorolac 30 mg Route: IVP; Site: left antecubital; ld1 Disposition Summary: 06/20/22 12:43 Discharge Ordered Location: Home [facility] Condition: Stable [facility] Diagnosis - Pelvic and perineal pain [facility] Followup: [facility] - With: Kinga Stovall MD - When: 2 - 3 days - Reason: Recheck today's complaints, Continuance of care, Re-evaluation by your physician Discharge Instructions: - Discharge Summary Sheet [facility] - Pelvic Pain, Female [facility] Forms: - Medication Reconciliation Form [facility] - Thank You Letter [facility] - Antibiotic Education [facility] - Prescription Opioid Use [facility] Prescriptions: - Diclofenac Sodium 75 mg Oral Tablet Sustained Release - take 1 tablet by ORAL route 2 times per day; 30 tablet; Refills: 0, Product [facility] Selection Permitted Signatures: Dispatcher [employer] Aleksandr Coats MD MD cha Mickail, Joel, PA PA [facility] Olga Martinez RN RN ap3 Cherie Razo RN RN ld1 Doris Sal RN RN jh5
[2022-06-20 13:53] VITALS: BP 162/80; TEMP 98.6; O2SAT 100
== END 2022-06-20 13:44 | disposition home or self-care (01) ==
LOC: ER 09:23
DX: R10.2 Pelvic and perineal pain (principal); I10 Essential (primary) hypertension
CPT/HCPCS: 85025; 36415; 81003; 83690; 80053; 74177; 76830; Q9967; J2405; 96374; 96375; 99284

== ENCOUNTER 2022-06-29 06:48 | Day surgery (SDC) | payer OTHER ==
--- NOTE | 2022-06-27 17:29 | EKG ---
Test Date: 2022-06-27 Test Time: 14:22:24 Editor [employer]aper: YG MEASUREMENT RESULTS: Intervals: Rate: 81 MS: 146 QRSD: 88 QT: 376 QTc: 436 [place]: P: 43 MS: 146 QRS: 41 T: 45 INTERPRETIVE STATEMENTS: Normal sinus rhythm Normal ECG Compared to ECG 11/12/2021 09:17:28 Sinus bradycardia no longer present ST (T wave) deviation no longer present Electronically Signed On 06-27-22 17:28:23 VICE PRESIDENT FOR INSTRUCTION by Darin Nelson
[2022-06-29] MEDS ORDERED: propofoL 200 MG/20 ML VIAL IV ONE ×2 (07:07→08:23)
[2022-06-29] MEDS ORDERED: GLYCOPYRROLATE 0.2 MG/ML SYR ONE (07:07)
[2022-06-29] MEDS ORDERED: LIDOCAINE 1% MPF 30 ML VIAL ONE (07:07)
[2022-06-29] MEDS ORDERED: Ringers Lactate 1,000 ML IV ONE (07:11)
[2022-06-29] MEDS ORDERED: SIMETHICONE 40 MG/ 0.6 ML ONE (07:52)
[2022-06-29] MEDS ORDERED: Phenylephrine HCl 10 MG/ML 1 ML VIAL ONE (07:53)
[2022-06-29] MEDS ORDERED: NS 0.9% VIAL 20 ML ONE (07:54)
[2022-06-29] MEDS ORDERED: EPHEDRINE SULF 50 MG/ML VIAL ONE (08:01)
[2022-06-29 10:04] VITALS: O2SAT 100
[2022-06-29 10:06] VITALS: BP 116/76; TEMP 97
== END 2022-06-29 09:49 | disposition home or self-care (01) ==
LOC: OR 06:48
PROVIDERS: ATTEND Surgery
PROC: 0DB78ZX Excision of Stomach, Pylorus, Via Natural or Artificial Opening Endoscopic, Diagnostic (ICD-10-PCS; 2022-06-29)
PROC: 0DB48ZX Excision of Esophagogastric Junction, Via Natural or Artificial Opening Endoscopic, Diagnostic (ICD-10-PCS; 2022-06-29)
PROC: 0DBQ8ZX Excision of Anus, Via Natural or Artificial Opening Endoscopic, Diagnostic (ICD-10-PCS; principal; 2022-06-29 08:00)
PROC: 0DB98ZX Excision of Duodenum, Via Natural or Artificial Opening Endoscopic, Diagnostic (ICD-10-PCS; 2022-06-29 08:00)
DX: Z12.11 Encounter for screening for malignant neoplasm of colon (principal); K64.8 Other hemorrhoids; K63.5 Polyp of colon; K29.30 Chronic superficial gastritis without bleeding; R23.3 Spontaneous ecchymoses
CPT/HCPCS: 45385; 43239; 93005; 88312; 88305; J2704 ×2; J2001; A4216; J2370; J7120

== ENCOUNTER 2023-01-31 06:24 | Day surgery (SDC) | payer OTHER ==
[2023-01-30 14:25] LABS: Specific Gravity 1.012 (1.005-1.030); Urine Bilirubin NEGATIVE (Negative); Urine Blood Negative (Negative); Urine Clarity Clear (Clear); Urine Color Colorless (Yellow); Urine Glucose NEGATIVE (Negative); Urine Protein NEGATIVE (Negative); Urine Urobilinogen Normal (Normal); Urine pH 6.5 (5.0-7.0)
[2023-01-30 14:27] LABS: Hematocrit 43.2 % (36.0-45.0); Lymphocytes % 21.2 % (15.3-44.8); MCV 94.5 fL (80-100); MPV 8.3 fL (7.6-11.3); Platelets 303 thou/uL (152-406); RBC Red Blood Cell Count 4.57 M/uL (3.86-4.86)
[2023-01-31] MEDS ORDERED: Ringers Lactate 1,000 ML IV ONE (07:14)
[2023-01-31] MEDS ORDERED: SCOPOLAMINE HYDROBROMIDE PATCH TD ONE (07:15)
[2023-01-31] MEDS ORDERED: ROCURONIUM 50 MG/5 ML VIAL IV ONE ×2 (07:26→09:35)
[2023-01-31] MEDS ORDERED: propofoL 200 MG/20 ML VIAL IV ONE (07:26)
[2023-01-31] MEDS ORDERED: FENTANYL CITR 100 MCG/2 ML ONE (07:26)
[2023-01-31] MEDS ORDERED: LIDOCAINE 2% MPF 5 ML VIAL ONE (07:26)
[2023-01-31] MEDS ORDERED: SUGAMMADEX SODIUM 200 MG/2 ML VIAL IV ONE (07:38)
[2023-01-31] MEDS ORDERED: KETAMINE HCL IN 0.9 % NACL 50 MG/5 ML SYRINGE IV ONE (07:38)
[2023-01-31] MEDS ORDERED: SUCCINYLCHOLINE 20 MG/ML (10 ML) IV ONE (07:38)
[2023-01-31] MEDS ORDERED: HYDROMORPHONE HCL 2 MG/ML inj ONE (07:38)
[2023-01-31] MEDS ORDERED: MIDAZOLAM HCL 2 MG/2 ML INJ ONE (07:46)
[2023-01-31] MEDS ORDERED: CEFAZOLIN SODIUM 2 GM/VIAL ONE (07:50)
[2023-01-31] MEDS ORDERED: EPHEDRINE SULF 50 MG/ML VIAL ONE (08:09)
[2023-01-31] MEDS ORDERED: ONDANSETRON 4 MG/2 ML VIAL ONE (08:12)
[2023-01-31] MEDS ORDERED: dexAMETHasone 10 MG/ML VIAL ONE (08:12)
[2023-01-31] MEDS ORDERED: GLYCOPYRROLATE 0.2 MG/ML SYR ONE ×3 (08:46→09:58)
[2023-01-31] MEDS ORDERED: BUPIVACAINE 0.25% PF 30 ML VIAL ONE (09:14)
[2023-01-31] MEDS ORDERED: KETOROLAC 30 MG/ML INJ ONE (09:57)
[2023-01-31] MEDS: Ringers Lactate 1,000 ML IV ONE ×4 (09:57→10:27)
[2023-01-31] MEDS ORDERED: Mastisol Adhesive Liq ONE (10:13)
[2023-01-31] MEDS ORDERED: PROMETHAZINE INJ 25 MG/ML AMP ONE (11:41)
[2023-01-31] MEDS ORDERED: MEPERIDINE HCL 25 MG/ML SYR ONE (11:42)
[2023-01-31 13:48] VITALS: O2SAT 98
[2023-01-31 13:50] VITALS: BP 135/70; TEMP 97
--- NOTE | 2023-01-31 20:50 | OP ---
Date of Procedure: 01/31/2023 Surgeon: Kinga Stovall MD Assistant Professor Of Psychology: Rhonda Doyle. Preoperative Diagnoses: Recurrent postmenopausal bleeding, menopausal hormone therapy and right lowe r quadrant pain. Postoperative Diagnoses: 1.Recurrent postmenopausal bleeding, menopausal hormone therapy and right lower quadrant pain. 2.Left hydrosalpinx, left-sided tubal adhesions to the left lateral wall. 3.Umbilical hernia. Procedures Performed: 1.Total laparoscopic hysterectomy bilateral salpingo-oophorectomy. 2.Umbilical hernia repair. Anesthesia: General endotracheal. Ebl: 50. Urine Output: 150. Fluids: 1000 Ringer's lactate. Specimens: Uterus, bilateral tubes and ovaries. Complications: No complications. Drains: No drains. Condition: Patient's condition stable. Findings: The left tube was adhered to the left lateral wall, round ligament, densely had a hydrosal pinx and was quite shortened compared to its contralateral sides. No clear evidence of endometriosis . The vaginal cuff was closed in 1 layer with interrupted 0 Vicryl sutures. An umbilical hernia rep air was performed with [place] tissue using 0 PDS. Indications: The patient is a 57-year-old on hormone therapy with perimenopausal bleeding in the pas t and recurrent postmenopausal bleeding. Endometrial sampling was negative for atypia and malignancy . However, the patient also complained of right lower quadrant pain, history of scar tissue noted at the time of first section. We discussed overall the different options including observatio n, treatment with an IUD, cessation of hormone therapy and follow up with an ultrasound for endometri al monitoring. She also has a high BMI increasing her risk for endometrial atypia or malignancy. So we discussed about all different options including hysterectomy and she was consented for this, and so she was consented for total laparoscopic hysterectomy, bilateral salpingo-oophorectomy, and proced ures as needed. Procedure In Detail: After informed consent was re-verified, she was taken back to OR. 2 g of Ancef were given. SCDs were placed. She was placed in supine fashion on the operating table and general anesthesia was given. She was placed in a dorsal lithotomy position. Her arms tucked by her side. After positioning was checked, the abdomen was prepped with ChloraPrep; vulva, vagina, and perineum w ith Betadine; draped in a sterile fashion. A time-out was done and procedure started. A speculum was placed to expose the cervix. Anterior lip of the cervix was grasped with a single-too th tenaculum. The cervix was dilated to 16-Tamazight and a small VCare was introduced and fixed in plac e. Pinzon was also placed and attached to a gravity drainage bag on the bottom and then I went down to th e abdominal part. A 1 cm infraumbilical incision was made with a scalpel using the open laparoscopy technique. Fascia was incised, tagged with 0 Vicryl sutures. Here, there was an apparent hernia that was seen mild, bu t this was dissected. The edges were cleared up. The hernia sac was very small. It was reduced int o the peritoneal cavity. 0 Vicryl sutures were placed to tag on both ends and then the peritoneum wa s entered sharply. Meena was introduced after adequate insufflation, site of entry was checked and was unremarkable. Two 5 ports were placed in the right and left lower quadrant, 1 each and 10/12 sup rapubic port was placed under direct vision. Bupivacaine was injected in both skin and fascia on all sites. Removal of the tubal adhesions from the left lateral wall and the round ligament: The peritoneum lat eral to the anterior port was taken down with the help of the LigaSure. Then, the peritoneum was dis sected superiorly towards the IP ligament on the lateral wall. Once this was done, then I was able t o dissect down to the round ligament. Once this was completely isolated, this was cauterized and cut . Then moved down inferiorly to identify both ureters from the pelvic brim to the ureteric tunnels w hich did not have any distortion. Then peritoneal window was made between the ureter and the IP liga ment. IP was isolated, cauterized and cut with the LigaSure. The anterior peritoneum was then disse cted and the uterus was dissected from the lateral wall. Carefully anteriorly, peritoneum was dissec matilda to the level of the VCare cup. Once this was all laid apart, the broad ligament was visualized a s well and was taken down with the help of the LigaSure and peritoneum posteriorly taken down to the level of the VCare cup. The vessels were identified on the left side there were cauterized and cut and the left uterine arter y was bleeding and this was held with a [place] grasper and cauterized at its base x2 with the vesse l sealer. Once there was excellent hemostasis, then I moved on to the opposite side. The broad liga ment was opened up in the mesosalpinx laterally superior to the round ligament then taken down all th e way to isolate the IP ligament both on the medial leaf of the broad ligament as well as on the late ral dissection and this was isolated, cauterized and cut with the LigaSure and round ligament was cau terized and cut with the LigaSure after isolating it. The broad ligament was taken down to the level of the vessels. The vessels were skeletonized by taking the broad ligament down. Then anterior to the peritoneum was opened up to dissect the bladder inferiorly. Due to her C-sections, there was sca r here and this was dissected so that I could see the anterior vaginal wall and this was retracted in ferior to the cuff and vessels were isolated, cauterized and cut. The cardinal ligaments were also t aken down with the help of the bipolar and scissors. An anterior colpotomy was performed with a mono polar hook blade and this was carried down laterally coming down on the right side to the posterior a spect then from the left side was taken down and connected and the entire specimen was detached and r etrieved through the vagina. Vaginal occluder was placed. Thorough irrigation suction was performed at the level of the vaginal c uff, cauterization at the cardinal ligament side on the left side was done with the help of the bipol ar. Then, 0 Vicryl sutures were placed at both angles, simple sutures tied outside the angle and the n 3 [id number] in the center getting a full apposition of the anterior and posterior fascia and the entire cuff was closed and apposing in an excellent fashion and with good hemostasis. Then, lat erally in the left lateral wall, there was some mild bleeding from the capillary bleeding. This was cauterized with the help of the bipolar and then Nadia was sprayed. There was excellent hemostasis, peristalsis of both ureters. No evidence of injury to the ureters. The appendix was unremarkable a nd upper abdominal cavity mostly unremarkable. The trocars were removed under direct vision and gas was desufflated. Fascia at the umbilicus had to be closed for the umbilical hernia repair. Umbilical hernia repair: The fascia was exposed on all sides and cleared out. The defect site was v isualized and 0 PDS sutures were placed starting at the upper apex and coming down with a figure-of-e ight and then lower apex was taken down and sutured with another [id number] and the center was b rought together with another [id number]. Once all the sutures were placed and were satisfactory , the tagged 0 Vicryl sutures were removed and then all the PDS sutures were tied down. There was ex cellent repair here of the fascial defect and all the skin incisions were checked for hemostasis. Th e suprapubic fascial incision closed with simple 0 Vicryl stitch and all skin closure with the help o f 4-0 Vicryl. The vaginal occluder and Pinzon were removed. Instrument, needle, and sponge counts we re correct at the end of the case. The patient tolerated the procedure well. She was recovered from anesthesia and taken to PACU in stable condition. EBL 50. She has a 1 week postop follow up with iman CONTRERAS Voice ID: [id number] Report ID: [id number]
== END 2023-01-31 12:50 | disposition home or self-care (01) ==
LOC: PRE 06:24 → OR 12:50
PROVIDERS: ATTEND Obstetrics & Gynecology
PROC: 0UT24ZZ Resection of Bilateral Ovaries, Percutaneous Endoscopic Approach (ICD-10-PCS; 2023-01-31)
PROC: 0UT74ZZ Resection of Bilateral Fallopian Tubes, Percutaneous Endoscopic Approach (ICD-10-PCS; 2023-01-31)
PROC: 0WQF4ZZ Repair Abdominal Wall, Percutaneous Endoscopic Approach (ICD-10-PCS; 2023-01-31)
PROC: 0UT94ZZ Resection of Uterus, Percutaneous Endoscopic Approach (ICD-10-PCS; principal; 2023-01-31 07:30)
DX: N95.0 Postmenopausal bleeding (principal); N95.1 Menopausal and female climacteric states; R10.31 Right lower quadrant pain; K42.9 Umbilical hernia without obstruction or gangrene
CPT/HCPCS: 36415; 81003; 81025; 85025; 88307; J1100; J1170; J2001; J2175; J2250; J2405; J2550; J2704; J3010; J7120

== ENCOUNTER 2023-04-09 05:35 | Observation (INO) | payer OTHER ==
[2023-04-08 13:40] LABS: Specific Gravity 1.019 (1.005-1.030); Urine Bilirubin NEGATIVE (Negative); Urine Blood Negative (Negative); Urine Clarity Clear (Clear); Urine Color Light-Yellow (Yellow); Urine Glucose NEGATIVE (Negative); Urine Protein NEGATIVE (Negative); Urine Urobilinogen Normal (Normal)
[2023-04-09] MEDS ORDERED: Oxycodone HCl/Acetaminophen 5/325 MG TAB ONE (06:03)
[2023-04-09] MEDS ORDERED: GABAPENTIN 100 MG CAP ONE (06:03)
[2023-04-09] MEDS ORDERED: Ringers Lactate 1,000 ML IV ONE ×2 (06:04→09:07)
[2023-04-09] MEDS ORDERED: CLINDAMYCIN 900MG/D5W 900 MG/50 ML IVPB IV ONE (06:04)
[2023-04-09] MEDS ORDERED: CELECOXIB 100 MG CAPSULE ONE (06:04)
[2023-04-09] MEDS ORDERED: ACETAMINOPHEN 500 MG TAB ONE (06:04)
[2023-04-09] MEDS ORDERED: dexAMETHasone 10 MG/ML VIAL ONE (06:11)
[2023-04-09] MEDS ORDERED: FENTANYL CITR 100 MCG/2 ML ONE ×2 (06:11→11:03)
[2023-04-09] MEDS ORDERED: EPINEPHRINE 1 MG/ML VIAL ONE (06:11)
[2023-04-09] MEDS ORDERED: DEXMEDETOMIDINE HCL 200 MCG/2 ML VIAL ONE (06:11)
[2023-04-09] MEDS ORDERED: LIDOCAINE 1% MPF 5 ML VIAL ONE (06:11)
[2023-04-09] MEDS ORDERED: MIDAZOLAM HCL 2 MG/2 ML INJ ONE (06:12)
[2023-04-09] MEDS ORDERED: MAGNESIUM SULFATE 1 gm IVPB 1 GM/100 ML BAG IV ONE (06:13)
[2023-04-09] MEDS ORDERED: BUPIVACAINE 0.25% PF 30 ML VIAL ONE (06:13)
[2023-04-09] MEDS ORDERED: TRANEXAMIC ACID 1,000 MG/10 ML VIAL IV ONE (07:05)
[2023-04-09] MEDS ORDERED: LIDOCAINE 2% MPF 5 ML VIAL ONE ×2 (07:07→07:26)
[2023-04-09] MEDS ORDERED: propofoL 200 MG/20 ML VIAL IV ONE (07:07)
[2023-04-09] MEDS ORDERED: KETAMINE HCL IN 0.9 % NACL 50 MG/5 ML SYRINGE IV ONE (07:27)
[2023-04-09] MEDS ORDERED: DOCUSATE NA 100 MG CAP PO PRN (09:26)
[2023-04-09] MEDS ORDERED: ONDANSETRON 4 MG/2 ML VIAL IV PRN (09:26)
--- NOTE | 2023-04-09 09:26 | P.BOP ---
Preoperative diagnosis: right knee arthritis Postoperative diagnosis: same Primary procedure: right total knee arthoplasty Estimated blood loss: 100 ccs Anesthesia: General Complications: None Transferred to: Recovery Room Condition: Good
[2023-04-09] MEDS: HYDROMORPHONE HCL 1 MG/ML INJ ONE ×3 (09:50→10:03)
[2023-04-09] MEDS ORDERED: HYDROMORPHONE HCL 1 MG/ML INJ ONE (10:02)
--- NOTE | 2023-04-09 10:20 | OP ---
Date of Procedure: 04/09/2023 Surgeon: Caleb Castillo MD Preoperative Diagnosis: Right knee severe osteoarthritis. Postoperative Diagnosis: Right knee severe osteoarthritis. Procedure: Right total knee arthroplasty using the [employer] system. Estimated Blood Loss: 100 cc. Complications: There were no complications. Indications For Operation: Ms. Finney is a 58-year-old patient who unfortunately suffered a debilita ting pain related to her right knee. This persisted despite conservative measures including availabl e measures and including injections, anti-inflammatories and exercise program. Risks, benefits, and alternatives of different methods of treating this have been discussed with the patient and at this t regine, she opts for total knee arthroplasty. She understands the risks and agrees to proceed. Description Of Procedure: The patient was taken to the operating room and placed in supine position. A block had been done by Anesthesia in the holding area. Following this, the right lower extremity was then prepped and draped in usual sterile fashion for the procedure. The leg was then elevated, gently exsanguinated with Mauro wrap. The knee was bent. Tourniquet was raised. A standard incision was made carefully anteriorly through skin and soft tissues. Meticulous hemostasis being maintained using Bovie electrocautery. Appropriate level was obtained and this was then spread allowing for goo d visualization of the extensor mechanism. After this, a standard medial parapatellar arthrotomy was performed without difficulty with liberation of normal-appearing synovial fluid. Following this, so me fat pad was removed as well as the ACL and medial meniscus and the patella was then everted and kn ee was bent. Debridement of lateral meniscus and posterior cruciate ligament are undertaken. After this, an intramedullary alignment guide was placed in standard fashion and the distal cutting block w as then placed. It was then cut in standard fashion and sized to a 67.5. The remainder of the cuts were then made. There was no sign of notching and there appeared to be a good cut throughout. Care was taken not to internally rotate the femur, as she does have a slight degree of valgus. Following this, attention was then turned to the tibia. It was then cut in standard fashion and sized. The fe mur was then trialed. It appeared to be a little tight in flexion, however, had good extension as it was balanced in both flexion and extension. Decision was made to cut a little bit more slope in the tibia which does correct for a little bit of tightness in flexion. After this, attention was then t urned to patella, which was calipered and cut and patellar button was placed. The knee was brought t hrough range of motion. The patella appears to glide ideally. After this, the trial implants are re moved and the box was then cut in standard fashion and the bony surfaces are cleaned for cementation. After this, the final PS femur as well as tibia were placed with a trial size 10 polyethylene. The final patella button was then placed and these were held firmly in place with removal of any unsuppo rted cement until the cement dries. After cement dried, the knee was brought through range of motion . Again, the patella appears to glide ideally. It also appears to go to full flexion and full exten megan to be balanced. Decision was made to move forward with a 10 polyethylene. The trial polyethyle ne was removed. The wound was irrigated and the final polyethylene was placed and locked with a lock ing bar. After this, the wound was irrigated and the extensor mechanism was closed with Ethibond sut ures. It was again irrigated and skin was closed using Vicryl sutures followed by cassius. The kacey ent was then placed in a very well-padded sterile dressing and taken to recovery room in good conditi on. /CISCO Voice ID: [id number] Report ID: [id number]
--- OUTSIDE RECORDS SUMMARY | 2023-04-09 12:25 | XMS REPORT | Continuity of Care Document ---
Author Name Unknown Address [address] [facility] [address] [place] [address] [facility] Address [address] [facility] [address] [place] [address] Care Team Providers Care Deckhand Maintenance Name Role Phone Lily BRAND, Thong Fuller Primary Care Physician CARL VICENTE Attending Clinician Unavailable DIGNA JACKSON Attending Clinician Unavailable [email or web address]_[email or web address] Attending Clinician Unavailable ZI_[email or web address]_Tushar Attending Clinician Unavail able Lily BRAND, Thong Fuller Attending Clinician + [phone] Doctor Unassigned, Jane Lew Attending Clinician U KARLIE Doss Attending Clinician Unavailable Albina Reich LVN Attending Clinician UnaMarco Parson DO Attending Clinician [phone] Provider, [facility] Attending Clinician Un available Sharon Bermudez Attending Clinician [phone] SHARON MARAVILLA Attending Clinician Unavailable Carl Vicente MD Attending Clinician [phone] KIM, DOROTHEA B Attending Clinician Unavailab le Pob, [facility] Main Attending Clinician Unavailabl e Only, Adc Test Attending Clinician Unavailable KAMALA KEBEDE Attending Clinician Unavailable THONG BAUTISTA Attending Clinician Digna Wilson MD Attending Clinician [phone] Karlie Elizondo PA-C Attending Clinician [phone] Gramm [employer]SEMBLER, Felicitas A Attending Clinician [phone] Kamala Rios Attending Clinician [phone] Anemarylu TRAV[employer] TRA[employer] ASSEMBLER, Randi Attending Clinician [phone] ANENE RANDI Attending Clinician Unavailable 2, [facility] Attending Clinician Unavailable Gianni BRAND, Karoline Attending Clinician [phone] CARL VICENTE Admitting Clinician Unavailable DIGNA JACKSON Admitting Clinician Unavailable [email or web address]_M Admitting Clinician Unavailable ZI_[email or web address]_Tharappe Admitting Clinician Unavail able Carl Vicente MD Admitting Clinician [phone] Digna Jackson MD Admitting Clinician [phone] Payers Payer Name Policy Type Policy Number Effective Date Expirati on Date Source HIM [facility] [id number] 2020 00:00:00 [facility] ([facility] [id number] Amb[facility] from [facility] [id number] [facility] Problems Condition Name Condition Details Condition Category Status Onset Date Resolution Date Last Treatment Date Treating Clinician Comments Source Screening for colorectal cancer Screening for colorectal cancer Disease Active 2019-04 00:00: 00 Overview: Formattin g of this note might be different from the original. Added automatic ally from request for surgery [id number] [facility] Morbid obesity with body mass index of 40.0-49.9 Morbid obesity with body mass index of 40.0-49.9 Disease Active 2019-04 00:00: 00 [facility] Acquired hypothyroi dism Acquired hypothyroi dism Disease Active 05-22 00:00: 00 [facility] Mild persistent asthma Mild persistent asthma Disease Active 2014-04 00:00: 00 [facility] Anxiety Anxiety Disease Active 2014-04 00:00: 00 [facility] Essential hypertensi on Essential hypertensi on Disease Active 2014-04 00:00: 00 [facility] [id number] Pain, joint, knee, right Problem [facility] [id number] Pain, joint, knee, left Problem [facility] [id number] Primary osteoarthr itis of left knee Problem [facility] [id number] Primary osteoarthr itis of right knee Problem Active [facility] Allergies, Adverse Reactions, Alerts Allergy Name Allergy Type Status Severity Reaction(s) Onset Date Inactive Date Treating Clinician Comments Source amoxicil kandis amoxicil kandis Active Unknown [facility] NO KNOWN ALLERGIE S Drug Class Active [facility] bacitrac in bacitrac in Active Unknown [facility] Social History Social Habit Start Date Stop Date Quantity Comments Source History of Tobacco Use [facility] Sex Assigned At [facility] Sexual orientation U [facility] Exposure to SARS-CoV-2 (event) 2020-04-22 00:00:00 2020-05-22 16:14:00 Not sure [facility] History of Social function 2020-04-12 00:00:00 2020-04-12 00:00:00 [facility] Alcohol intake 2019-07-09 00:00:00 2019-07-09 00:00:00 .29 /d [facility] Tobacco use and exposure 2015-02-07 00:00:00 2015-02-07 00:00:00 Smokeless tobacco non-user [facility] Smoking Status Start Date Stop Date Source Never Smoker [facility] Medications Ordered Medication Name Filled Medication Name Start Date Stop Date Current Medication? Ordering Clinician Indication Dosage Frequency Signature (SIG) Comments Components Source Lidocaine Lidocaine 17 00:00: [address] [facility] Kenalog (Triamcinol one) Kenalog (Triamcinol one) 17 00:00: [address] [facility] Lidocaine Lidocaine 17 00:00: [address] [facility] Kenalog (Triamcinol one) Kenalog (Triamcinol one) 17 00:00: [address] [facility] BUPROPION XL 300 mg 24 hr tablet 2020-04 00:00: 00 Yes [id number] Take 1 tablet by mouth once daily [facility] BUPROPION XL 300 mg 24 hr tablet 2020-04 00:00: 00 Yes [id number] Take 1 tablet by mouth once daily [facility] BUPROPION XL 300 mg 24 hr tablet 2020-04 00:00: 00 Yes [id number] Take 1 tablet by mouth once daily [facility] BUPROPION XL 300 mg 24 hr tablet 2020-04 00:00: 00 Yes [id number] Take 1 tablet by mouth once daily [facility] BUPROPION XL 300 mg 24 hr tablet 2020-04 00:00: 00 Yes [id number] Take 1 tablet by mouth once daily [facility] budesonide- formoteroL (SYMBICORT) 160-4.5 mcg/actuati on inhaler 12-26 00:00: 00 Yes Inhale 2 puffs by mouth twice daily [facility] budesonide- formoteroL (SYMBICORT) 160-4.5 mcg/actuati on inhaler 12-26 00:00: 00 Yes Inhale 2 puffs by mouth twice daily [facility] budesonide- formoteroL (SYMBICORT) 160-4.5 mcg/actuati on inhaler 12-26 00:00: 00 Yes Inhale 2 puffs by mouth twice daily [facility] budesonide- formoteroL (SYMBICORT) 160-4.5 mcg/actuati on inhaler 12-26 00:00: 00 Yes Inhale 2 puffs by mouth twice daily [facility] budesonide- formoteroL (SYMBICORT) 160-4.5 mcg/actuati on inhaler 12-26 00:00: 00 Yes Inhale 2 puffs by mouth twice daily [facility] budesonide- formoteroL (SYMBICORT) 160-4.5 mcg/actuati on inhaler 12-26 00:00: 00 Yes Inhale 2 puffs by mouth twice daily [facility] budesonide- formoteroL (SYMBICORT) 160-4.5 mcg/actuati on inhaler 12-26 00:00: 00 Yes Inhale 2 puffs by mouth twice daily [facility] buPROPion XL 300 mg 24 hr tablet 12-20 00:00: 00 Yes [id number] 300mg Take 1 tablet by mouth daily. [facility] lisinopriL 20 mg tablet 12-20 00:00: 00 Yes [id number] 20mg Take 1 tablet by mouth daily. [facility] lisinopriL 20 mg tablet 0 12-20 00:00: 00 Yes [id number] 20mg Take 1 tablet by mouth daily. [facility] lisinopriL 20 mg tablet 0 12-20 00:00: 00 Yes [id number] 20mg Take 1 tablet by mouth daily. [facility] lisinopriL 20 mg tablet 0 12-20 00:00: 00 Yes [id number] 20mg Take 1 tablet by mouth daily. [facility] lisinopriL 20 mg tablet 0 12-20 00:00: 00 Yes [id number] 20mg Take 1 tablet by mouth daily. [facility] lisinopriL 20 mg tablet 0 12-20 00:00: 00 Yes [id number] 20mg Take 1 tablet by mouth daily. [facility] lisinopriL 20 mg tablet 2020-0 8 00:00: 00 Yes [id number] 20mg Take 1 tablet by mouth daily. [facility] Bupivicaine [place] Bupivicaine [place] 824 00:00: 00 No .25mg [facility] Kenalog (Triamcinol one) Kenalog (Triamcinol one) 824 00:00: 00 No 40mg [facility] Bupivicaine [place] Bupivicaine [place] 12-20 00:00: 00 No .25mg [facility] Kenalog (Triamcinol one) Kenalog (Triamcinol one) 8 00:00: [address] [facility] buPROPion XL 300 mg 24 hr tablet 12-20 00:00: 00 03-09 00:00 :00 No [id number] 300mg Take 1 tablet by mouth daily. [facility] MONTELUKAST 10 mg tablet 10-28 00:00: 00 Yes [id number] Take 1 tablet by mouth once daily [facility] MONTELUKAST 10 mg tablet 10-28 00:00: 00 Yes [id number] Take 1 tablet by mouth once daily [facility] MONTELUKAST 10 mg tablet 10-28 00:00: 00 Yes [id number] Take 1 tablet by mouth once daily [facility] MONTELUKAST 10 mg tablet 10-28 00:00: 00 Yes [id number] Take 1 tablet by mouth once daily [facility] MONTELUKAST 10 mg tablet 10-28 00:00: 00 Yes [id number] Take 1 tablet by mouth once daily [facility] MONTELUKAST 10 mg tablet 10-28 00:00: 00 Yes [id number] Take 1 tablet by mouth once daily [facility] MONTELUKAST 10 mg tablet 10-28 00:00: 00 Yes [id number] Take 1 tablet by mouth once daily [facility] pantoprazol e 40 mg EC tablet 3-04 00:00: 00 Yes 40mg Take 1 tablet by mouth daily. [facility] pantoprazol e 40 mg EC tablet 06-30 00:00: 00 Yes 40mg Take 1 tablet by mouth daily. [facility] pantoprazol e 40 mg EC tablet 06-30 00:00: 00 Yes 40mg Take 1 tablet by mouth daily. [facility] pantoprazol e 40 mg EC tablet 06-30 00:00: 00 Yes 40mg Take 1 tablet by mouth daily. [facility] pantoprazol e 40 mg EC tablet 06-30 00:00: 00 Yes 40mg Take 1 tablet by mouth daily. [facility] pantoprazol e 40 mg EC tablet 06-30 00:00: 00 Yes 40mg Take 1 tablet by mouth daily. [facility] pantoprazol e 40 mg EC tablet 06-30 00:00: 00 Yes 40mg Take 1 tablet by mouth daily. [facility] CLONAZEPAM 0.5 mg tablet 05-04 00:00: 00 Yes [id number] Take 1 tablet by mouth twice daily as needed for anxiety [facility] CLONAZEPAM 0.5 mg tablet 05-04 00:00: 00 Yes [id number] Take 1 tablet by mouth twice daily as needed for anxiety [facility] CLONAZEPAM 0.5 mg tablet 05-04 00:00: 00 Yes [id number] Take 1 tablet by mouth twice daily as needed for anxiety [facility] CLONAZEPAM 0.5 mg tablet 05-04 00:00: 00 Yes [id number] Take 1 tablet by mouth twice daily as needed for anxiety [facility] CLONAZEPAM 0.5 mg tablet 0 05-04 00:00: 00 Yes [id number] Take 1 tablet by mouth twice daily as needed for anxiety [facility] CLONAZEPAM 0.5 mg tablet 05-04 00:00: 00 Yes [id number] Take 1 tablet by mouth twice daily as needed for anxiety [facility] CLONAZEPAM 0.5 mg tablet 05-04 00:00: 00 Yes [id number] Take 1 tablet by mouth twice daily as needed for anxiety [facility] CLONAZEPAM 0.5 mg tablet 05-04 00:00: 00 Yes [id number] Take 1 tablet by mouth twice daily as needed for anxiety [facility] CLONAZEPAM 0.5 mg tablet 05-04 00:00: 00 Yes [id number] Take 1 tablet by mouth twice daily as needed for anxiety [facility] CLONAZEPAM 0.5 mg tablet 05-04 00:00: 00 Yes [id number] Take 1 tablet by mouth twice daily as needed for anxiety [facility] CLONAZEPAM 0.5 mg tablet 05-04 00:00: 00 Yes [id number] Take 1 tablet by mouth twice daily as needed for anxiety [facility] montelukast 10 mg tablet 05-04 00:00: 00 09-06 00:00 :00 No [id number] 10mg Take 1 tablet by mouth daily. [facility] mg capsule 05-02 19:09: 11 Yes 25mg Take 25 mg by mouth 3 (three) times daily as needed for Itching. [facility] hydrOXYzine 25 mg capsule 05-02 19:09: 11 Yes 25mg Take 25 mg by mouth 3 (three) times daily as needed for Itching. [facility] hydrOXYzine 25 mg capsule 05-02 19:09: 11 Yes 25mg Take 25 mg by mouth 3 (three) times daily as needed for Itching. [facility] hydrOXYzine [facility] mg capsule 05-02 19:09: 11 Yes 25mg Take 25 mg by mouth 3 (three) times daily as needed for Itching. [facility] hydrOXYzine 25 mg capsule 05-02 19:09: 11 Yes 25mg Take 25 mg by mouth 3 (three) times daily as needed for Itching. [facility] hydrOXYzine 25 mg capsule 05-02 19:09: 11 Yes 25mg Take 25 mg by mouth 3 (three) times daily as needed for Itching. [facility] hydrOXYzine 25 mg capsule 2020-0 05-02 19:09: 11 Yes 25mg Take 25 mg by mouth 3 (three) times daily as needed for Itching. [facility] hydrOXYzine 25 mg capsule 2020-0 05-02 19:09: 11 Yes 25mg Take 25 mg by mouth 3 (three) times daily as needed for Itching. [facility] hydrOXYzine 25 mg capsule 2020-0 05-02 19:09: 11 Yes 25mg Take 25 mg by mouth 3 (three) times daily as needed for Itching. [facility] hydrOXYzine [facility] mg capsule 2020-0 05-02 19:09: 11 Yes 25mg Take 25 mg by mouth 3 (three) times daily as needed for Itching. [facility] hydrOXYzine 25 mg capsule 0 05-02 19:09: 11 Yes 25mg Take 25 mg by mouth 3 (three) times daily as needed for Itching. [facility] hydrOXYzine 25 mg capsule 2020-0 05-02 19:09: 11 Yes 25mg Take 25 mg by mouth 3 (three) times daily as needed for Itching. [facility] hydrOXYzine 25 mg capsule 0 05-02 19:09: 11 Yes 25mg Take 25 mg by mouth 3 (three) times daily as needed for Itching. [facility] hydrOXYzine 25 mg capsule 2020-0 05-02 19:09: 11 Yes 25mg Take 25 mg by mouth 3 (three) times daily as needed for Itching. [facility] hydrOXYzine 25 mg capsule 2020-0 05-02 19:09: 11 Yes 25mg Take 25 mg by mouth 3 (three) times daily as needed for Itching. [facility] hydrOXYzine 25 mg capsule 2020-0 05-02 19:09: 11 Yes 25mg Take 25 mg by mouth 3 (three) times daily as needed for Itching. [facility] hydrOXYzine 25 mg capsule 2020-0 05-02 19:09: 11 Yes 25mg Take 25 mg by mouth 3 (three) times daily as needed for Itching. [facility] hydrOXYzine 25 mg capsule 0 05-02 19:09: 11 Yes 25mg Take 25 mg by mouth 3 (three) times daily as needed for Itching. [facility] hydrOXYzine 25 mg capsule 2020-0 05-02 19:09: 11 Yes 25mg Take 25 mg by mouth 3 (three) times daily as needed for Itching. [facility] hydrOXYzine 25 mg capsule 1-0 05-02 19:09: 11 Yes 25mg Take 25 mg by mouth 3 (three) times daily as needed for Itching. [facility] hydrOXYzine 25 mg capsule 1-0 05-02 19:09: 11 Yes 25mg Take 25 mg by mouth 3 (three) times daily as needed for Itching. [facility] hydrOXYzine [facility] mg capsule 2020-0 05-02 19:09: 11 Yes 25mg Take 25 mg by mouth 3 (three) times daily as needed for Itching. [facility] hydrOXYzine [facility] mg capsule 2020-0 05-02 19:09: 11 Yes 25mg Take 25 mg by mouth 3 (three) times daily as needed for Itching. [facility] hydrOXYzine 25 mg capsule 2020-0 05-02 19:09: 11 Yes 25mg Take 25 mg by mouth 3 (three) times daily as needed for Itching. [facility] hydrOXYzine 25 mg capsule 2020-0 05-02 19:09: 11 Yes 25mg Take 25 mg by mouth 3 (three) times daily as needed for Itching. [facility] hydrOXYzine 25 mg capsule 2020-0 05-02 19:09: 11 Yes 25mg Take 25 mg by mouth 3 (three) times daily as needed for Itching. [facility] hydrOXYzine 25 mg capsule 1-0 05-02 19:09: 11 Yes 25mg Take 25 mg by mouth 3 (three) times daily as needed for Itching. [facility] hydrOXYzine 25 mg capsule 1-0 05-02 19:09: 11 Yes 25mg Take 25 mg by mouth 3 (three) times daily as needed for Itching. [facility] hydrOXYzine 25 mg capsule 105-02 19:09: 11 Yes 25mg Take 25 mg by mouth 3 (three) times daily as needed for Itching. [facility] hydrOXYzine 25 mg capsule 05-02 19:09: 11 Yes 25mg Take 25 mg by mouth 3 (three) times daily as needed for Itching. [facility] medroxyPROG ESTERone (PROVERA) 10 mg tablet 2019-04 00:00: 00 Yes [id number] 10mg Take 1 tablet by mouth daily. [facility] medroxyPROG ESTERone (PROVERA) 10 mg tablet 2019-04 00:00: 00 Yes [id number] 10mg Take 1 tablet by mouth daily. [facility] medroxyPROG ESTERone (PROVERA) 10 mg tablet 2019-04 00:00: 00 Yes [id number] 10mg Take 1 tablet by mouth daily. [facility] medroxyPROG ESTERone (PROVERA) 10 mg tablet 2019-04 00:00: 00 Yes [id number] 10mg Take 1 tablet by mouth daily. [facility] medroxyPROG ESTERone (PROVERA) 10 mg tablet 2019-04 00:00: 00 Yes [id number] 10mg Take 1 tablet by mouth daily. [facility] medroxyPROG ESTERone (PROVERA) 10 mg tablet 2019-04 00:00: 00 Yes [id number] 10mg Take 1 tablet by mouth daily. [facility] medroxyPROG ESTERone (PROVERA) 10 mg tablet 2019-04 00:00: 00 Yes [id number] 10mg Take 1 tablet by mouth daily. [facility] medroxyPROG ESTERone (PROVERA) 10 mg tablet 2019-04 00:00: 00 Yes [id number] 10mg Take 1 tablet by mouth daily. [facility] medroxyPROG ESTERone (PROVERA) 10 mg tablet 2019-04 00:00: 00 Yes [id number] 10mg Take 1 tablet by mouth daily. [facility] medroxyPROG ESTERone (PROVERA) 10 mg tablet 2019-04 00:00: 00 Yes [id number] 10mg Take 1 tablet by mouth daily. [facility] medroxyPROG ESTERone (PROVERA) 10 mg tablet 2019-04 00:00: 00 Yes [id number] 10mg Take 1 tablet by mouth daily. [facility] ibuprofen 600 mg tablet 2019-04 00:00: 00 Yes [id number] 600mg Take 1 tablet by mouth every 6 (six) hours as needed for Pain (scale 1-3) or Pain (scale 4-6). [facility] acetaminoph en (TYLENOL) 325 mg tablet 2019-04 00:00: 00 Yes [id number] 650mg Take 2 tablets by mouth every 6 (six) hours as needed for Pain (scale 1-3) or Pain (scale 4-6). [facility] ibuprofen 600 mg tablet 2019-04 00:00: 00 Yes [id number] 600mg Take 1 tablet by mouth every 6 (six) hours as needed for Pain (scale 1-3) or Pain (scale 4-6). [facility] acetaminoph en (TYLENOL) 325 mg tablet 2019-04 00:00: 00 Yes [id number] 650mg Take 2 tablets by mouth every 6 (six) hours as needed for Pain (scale 1-3) or Pain (scale 4-6). [facility] ibuprofen 600 mg tablet 2019-04 00:00: 00 Yes [id number] 600mg Take 1 tablet by mouth every 6 (six) hours as needed for Pain (scale 1-3) or Pain (scale 4-6). [facility] acetaminoph en (TYLENOL) 325 mg tablet 2019-04 00:00: 00 Yes [id number] 650mg Take 2 tablets by mouth every 6 (six) hours as needed for Pain (scale 1-3) or Pain (scale 4-6). [facility] ibuprofen 600 mg tablet 2019-04 00:00: 00 Yes [id number] 600mg Take 1 tablet by mouth every 6 (six) hours as needed for Pain (scale 1-3) or Pain (scale 4-6). [facility] acetaminoph en (TYLENOL) 325 mg tablet 2019-04 00:00: 00 Yes [id number] 650mg Take 2 tablets by mouth every 6 (six) hours as needed for Pain (scale 1-3) or Pain (scale 4-6). [facility] ibuprofen 600 mg tablet 2019-04 00:00: 00 Yes [id number] 600mg Take 1 tablet by mouth every 6 (six) hours as needed for Pain (scale 1-3) or Pain (scale 4-6). [facility] acetaminoph en (TYLENOL) 325 mg tablet 2019-04 00:00: 00 Yes [id number] 650mg Take 2 tablets by mouth every 6 (six) hours as needed for Pain (scale 1-3) or Pain (scale 4-6). [facility] ibuprofen 600 mg tablet 2019-04 00:00: 00 Yes [id number] 600mg Take 1 tablet by mouth every 6 (six) hours as needed for Pain (scale 1-3) or Pain (scale 4-6). [facility] acetaminoph en (TYLENOL) 325 mg tablet 2019-04 00:00: 00 Yes [id number] 650mg Take 2 tablets by mouth every 6 (six) hours as needed for Pain (scale 1-3) or Pain (scale 4-6). [facility] ibuprofen 600 mg tablet 2019-04 00:00: 00 Yes [id number] 600mg Take 1 tablet by mouth every 6 (six) hours as needed for Pain (scale 1-3) or Pain (scale 4-6). [facility] acetaminoph en (TYLENOL) 325 mg tablet 2019-04 00:00: 00 Yes [id number] 650mg Take 2 tablets by mouth every 6 (six) hours as needed for Pain (scale 1-3) or Pain (scale 4-6). [facility] ibuprofen 600 mg tablet 2019-04 00:00: 00 Yes [id number] 600mg Take 1 tablet by mouth every 6 (six) hours as needed for Pain (scale 1-3) or Pain (scale 4-6). [facility] acetaminoph en (TYLENOL) 325 mg tablet 2019-04 00:00: 00 Yes [id number] 650mg Take 2 tablets by mouth every 6 (six) hours as needed for Pain (scale 1-3) or Pain (scale 4-6). [facility] ibuprofen 600 mg tablet 2019-04 00:00: 00 Yes [id number] 600mg Take 1 tablet by mouth every 6 (six) hours as needed for Pain (scale 1-3) or Pain (scale 4-6). [facility] acetaminoph en (TYLENOL) 325 mg tablet 2019-04 00:00: 00 Yes [id number] 650mg Take 2 tablets by mouth every 6 (six) hours as needed for Pain (scale 1-3) or Pain (scale 4-6). [facility] ibuprofen 600 mg tablet 2019-04 00:00: 00 Yes [id number] 600mg Take 1 tablet by mouth every 6 (six) hours as needed for Pain (scale 1-3) or Pain (scale 4-6). [facility] acetaminoph en (TYLENOL) 325 mg tablet 2019-04 00:00: 00 Yes [id number] 650mg Take 2 tablets by mouth every 6 (six) hours as needed for Pain (scale 1-3) or Pain (scale 4-6). [facility] ibuprofen 600 mg tablet 2019-04 00:00: 00 Yes [id number] 600mg Take 1 tablet by mouth every 6 (six) hours as needed for Pain (scale 1-3) or Pain (scale 4-6). [facility] acetaminoph en (TYLENOL) 325 mg tablet 2019-04 00:00: 00 Yes [id number] 650mg Take 2 tablets by mouth every 6 (six) hours as needed for Pain (scale 1-3) or Pain (scale 4-6). [facility] ibuprofen 600 mg tablet 2019-04 00:00: 00 Yes [id number] 600mg Take 1 tablet by mouth every 6 (six) hours as needed for Pain (scale 1-3) or Pain (scale 4-6). [facility] acetaminoph en (TYLENOL) 325 mg tablet 2019-04 00:00: 00 Yes [id number] 650mg Take 2 tablets by mouth every 6 (six) hours as needed for Pain (scale 1-3) or Pain (scale 4-6). [facility] ibuprofen 600 mg tablet 2019-04 00:00: 00 Yes [id number] 600mg Take 1 tablet by mouth every 6 (six) hours as needed for Pain (scale 1-3) or Pain (scale 4-6). [facility] acetaminoph en (TYLENOL) 325 mg tablet 2019-04 00:00: 00 Yes [id number] 650mg Take 2 tablets by mouth every 6 (six) hours as needed for Pain (scale 1-3) or Pain (scale 4-6). [facility] ibuprofen 600 mg tablet 2019-04 00:00: 00 Yes [id number] 600mg Take 1 tablet by mouth every 6 (six) hours as needed for Pain (scale 1-3) or Pain (scale 4-6). [facility] acetaminoph en (TYLENOL) 325 mg tablet 2019-04 00:00: 00 Yes [id number] 650mg Take 2 tablets by mouth every 6 (six) hours as needed for Pain (scale 1-3) or Pain (scale 4-6). [facility] montelukast 10 mg tablet 2019-04 00:00: 00 05-04 00:00 :00 No [id number] 10mg Take 1 tablet by mouth daily. [facility] montelukast 10 mg tablet 2019-04 00:00: 00 05-04 00:00 :00 No [id number] 10mg Take 1 tablet by mouth daily. [facility] montelukast 10 mg tablet 2019-04 00:00: 00 05-04 00:00 :00 No [id number] 10mg Take 1 tablet by mouth daily. [facility] montelukast 10 mg tablet 2019-04 00:00: 00 05-04 00:00 :00 No [id number] 10mg Take 1 tablet by mouth daily. [facility] montelukast 10 mg tablet 2019-04 00:00: 00 05-04 00:00 :00 No [id number] 10mg Take 1 tablet by mouth daily. [facility] clonazePAM (KLONOPIN) 0.5 mg tablet 2019-04 00:00: 05-04 00:00 :00 No [id number] .5mg Take 1 tablet by mouth 2 (two) times daily as needed (anxiety). [facility] clonazePAM (KLONOPIN) 0.5 mg tablet 2019-04 00:00: 00 05-04 00:00 :00 No [id number] .5mg Take 1 tablet by mouth 2 (two) times daily as needed (anxiety). [facility] clonazePAM (KLONOPIN) 0.5 mg tablet 2019-04 00:00: 05-04 00:00 :00 No [id number] .5mg Take 1 tablet by mouth 2 (two) times daily as needed (anxiety). [facility] clonazePAM (KLONOPIN) 0.5 mg tablet 2019-04 00:00: 00 05-04 00:00 :00 No [id number] .5mg Take 1 tablet by mouth 2 (two) times daily as needed (anxiety). [facility] clonazePAM (KLONOPIN) 0.5 mg tablet 2019-04 00:00: 05-04 00:00 :00 No [id number] .[id number] Take 1 tablet by mouth 2 (two) times daily as needed (anxiety). [facility] clonazePAM (KLONOPIN) 0.5 mg tablet 2019-04 00:00: 00 05-04 00:00 :00 No [id number] .5mg Take 1 tablet by mouth 2 (two) times daily as needed (anxiety). [facility] clonazePAM (KLONOPIN) 0.5 mg tablet 2019-04 00:00: 05-04 00:00 :00 No [id number] .5mg Take 1 tablet by mouth 2 (two) times daily as needed (anxiety). [facility] montelukast 10 mg tablet 2019-04 00:00: 03-28 00:00 :00 No [id number] 10mg Take 1 tablet by mouth daily. [facility] montelukast 10 mg tablet 2019-04 00:00: 03-28 00:00 :00 No [id number] 10mg Take 1 tablet by mouth daily. [facility] peg-electro lyte soln 236-22.74-6 .74 -5.86 gram solution 2019-04 00:00: 03-18 00:00 :00 No [id number] 4000mL Take 4,000 mL by mouth SEE-INSTRU CTIONS. Take as directed [facility] peg-electro lyte soln 236-22.74-6 .74 -5.86 gram solution 2019-04 00:00: 03-18 00:00 :00 No [id number] 4000mL Take 4,000 mL by mouth SEE-INSTRU CTIONS. Take as directed [facility] buPROPion XL 300 mg 24 hr tablet 2019-04 00:00: 00 10-10 00:00 :00 No [id number] 300mg Take 1 tablet by mouth daily. [facility] buPROPion XL 300 mg 24 hr tablet 2019-04 00:00: 00 10-10 00:00 :00 No [id number] 300mg Take 1 tablet by mouth daily. [facility] buPROPion XL 300 mg 24 hr tablet 2019-04 00:00: 00 10-10 00:00 :00 No [id number] 300mg Take 1 tablet by mouth daily. [facility] buPROPion XL 300 mg 24 hr tablet 2019-04 00:00: 00 10-10 00:00 :00 No [id number] 300mg Take 1 tablet by mouth daily. [facility] buPROPion XL 300 mg 24 hr tablet 2019-04 00:00: 00 10-10 00:00 :00 No [id number] 300mg Take 1 tablet by mouth daily. [facility] buPROPion XL 300 mg 24 hr tablet 2019-04 00:00: 00 10-10 00:00 :00 No [id number] 300mg Take 1 tablet by mouth daily. [facility] buPROPion XL 300 mg 24 hr tablet 2019-04 00:00: 00 10-10 00:00 :00 No [id number] 300mg Take 1 tablet by mouth daily. [facility] buPROPion XL 300 mg 24 hr tablet 2019-04 00:00: 00 10-10 00:00 :00 No [id number] 300mg Take 1 tablet by mouth daily. [facility] buPROPion XL 300 mg 24 hr tablet 2019-04 00:00: 00 10-10 00:00 :00 No [id number] 300mg Take 1 tablet by mouth daily. [facility] topiramate 50 mg tablet 01-12 14:12: 15 01-12 00:00 :00 No 50mg Take 50 mg by mouth 2 (two) times daily. [facility] pantoprazol e 40 mg EC tablet 01-12 00:00: 00 Yes [id number] 40mg Take 1 tablet by mouth daily. [facility] pantoprazol e 40 mg EC tablet 01-12 00:00: 00 Yes [id number] 40mg Take 1 tablet by mouth daily. [facility] pantoprazol e 40 mg EC tablet 01-12 00:00: 00 Yes [id number] 40mg Take 1 tablet by mouth daily. [facility] pantoprazol e 40 mg EC tablet 16 00:00: 00 Yes [id number] 40mg Take 1 tablet by mouth daily. [facility] pantoprazol e 40 mg EC tablet 01-12 00:00: 00 Yes [id number] 40mg Take 1 tablet by mouth daily. [facility] pantoprazol e 40 mg EC tablet 01-12 00:00: 00 Yes [id number] 40mg Take 1 tablet by mouth daily. [facility] pantoprazol e 40 mg EC tablet 2019-0 16 00:00: 00 Yes [id number] 40mg Take 1 tablet by mouth daily. [facility] pantoprazol e 40 mg EC tablet 2019-0 16 00:00: 00 Yes [id number] 40mg Take 1 tablet by mouth daily. [facility] pantoprazol e 40 mg EC tablet 0 16 00:00: 00 Yes [id number] 40mg Take 1 tablet by mouth daily. [facility] pantoprazol e 40 mg EC tablet 0 16 00:00: 00 Yes [id number] 40mg Take 1 tablet by mouth daily. [facility] pantoprazol e 40 mg EC tablet 0 16 00:00: 00 Yes [id number] 40mg Take 1 tablet by mouth daily. [facility] pantoprazol e 40 mg EC tablet 0 16 00:00: 00 Yes [id number] 40mg Take 1 tablet by mouth daily. [facility] pantoprazol e 40 mg EC tablet 0 16 00:00: 00 Yes [id number] 40mg Take 1 tablet by mouth daily. [facility] pantoprazol e 40 mg EC tablet 0 16 00:00: 00 Yes [id number] 40mg Take 1 tablet by mouth daily. [facility] pantoprazol e 40 mg EC tablet 0 16 00:00: 00 Yes [id number] 40mg Take 1 tablet by mouth daily. [facility] pantoprazol e 40 mg EC tablet 0 16 00:00: 00 Yes [id number] 40mg Take 1 tablet by mouth daily. [facility] pantoprazol e 40 mg EC tablet 2019-0 16 00:00: 00 Yes [id number] 40mg Take 1 tablet by mouth daily. [facility] pantoprazol e 40 mg EC tablet 2019-0 -16 00:00: 00 Yes [id number] 40mg Take 1 tablet by mouth daily. [facility] pantoprazol e 40 mg EC tablet 0 16 00:00: 00 Yes [id number] 40mg Take 1 tablet by mouth daily. [facility] pantoprazol e 40 mg EC tablet 2019-0 16 00:00: 00 Yes [id number] 40mg Take 1 tablet by mouth daily. [facility] pantoprazol e 40 mg EC tablet 0 16 00:00: 00 Yes [id number] 40mg Take 1 tablet by mouth daily. [facility] pantoprazol e 40 mg EC tablet 0 16 00:00: 00 Yes [id number] 40mg Take 1 tablet by mouth daily. [facility] pantoprazol e 40 mg EC tablet 0 16 00:00: 00 Yes [id number] 40mg Take 1 tablet by mouth daily. [facility] pantoprazol e 40 mg EC tablet 0 16 00:00: 00 Yes [id number] 40mg Take 1 tablet by mouth daily. [facility] pantoprazol e 40 mg EC tablet 0 16 00:00: 00 Yes [id number] 40mg Take 1 tablet by mouth daily. [facility] pantoprazol e 40 mg EC tablet 0 16 00:00: 00 Yes [id number] 40mg Take 1 tablet by mouth daily. [facility] pantoprazol e 40 mg EC tablet 0 16 00:00: 00 Yes [id number] 40mg Take 1 tablet by mouth daily. [facility] pantoprazol e 40 mg EC tablet 0 16 00:00: 00 Yes [id number] 40mg Take 1 tablet by mouth daily. [facility] pantoprazol e 40 mg EC tablet 0 16 00:00: 00 Yes [id number] 40mg Take 1 tablet by mouth daily. [facility] pantoprazol e 40 mg EC tablet 0 16 00:00: 00 Yes [id number] 40mg Take 1 tablet by mouth daily. [facility] pantoprazol e 40 mg EC tablet 0 16 00:00: 00 Yes [id number] 40mg Take 1 tablet by mouth daily. [facility] albuterol 1.25 mg/3 mL nebulizer solution 11-02 15:04: 47 11-02 00:00 :00 No 1{ampul e} Use 1 Ampule as directed every 6 (six) hours as needed for Wheezing. [facility] albuterol 1.25 mg/3 mL nebulizer solution 11-02 00:00: 00 Yes [id number] 1.25mg Use 3 mL as directed every 6 (six) hours as needed for Wheezing, Shortness of Breath or Bronchospa sm. [facility] albuterol 1.25 mg/3 mL nebulizer solution 11-02 00:00: 00 Yes [id number] 1.25mg Use 3 mL as directed every 6 (six) hours as needed for Wheezing, Shortness of Breath or Bronchospa sm. [facility] albuterol 1.25 mg/3 mL nebulizer solution 11-02 00:00: 00 Yes [id number] 1.25mg Use 3 mL as directed every 6 (six) hours as needed for Wheezing, Shortness of Breath or Bronchospa sm. [facility] albuterol 1.25 mg/3 mL nebulizer solution 11-02 00:00: 00 Yes [id number] 1.25mg Use 3 mL as directed every 6 (six) hours as needed for Wheezing, Shortness of Breath or Bronchospa sm. [facility] albuterol 1.25 mg/3 mL nebulizer solution 11-02 00:00: 00 Yes [id number] 1.25mg Use 3 mL as directed every 6 (six) hours as needed for Wheezing, Shortness of Breath or Bronchospa sm. [facility] albuterol 1.25 mg/3 mL nebulizer solution 11-02 00:00: 00 Yes [id number] 1.25mg Use 3 mL as directed every 6 (six) hours as needed for Wheezing, Shortness of Breath or Bronchospa sm. [facility] albuterol 1.25 mg/3 mL nebulizer solution 11-02 00:00: 00 Yes [id number] 1.25mg Use 3 mL as directed every 6 (six) hours as needed for Wheezing, Shortness of Breath or Bronchospa sm. [facility] albuterol 1.25 mg/3 mL nebulizer solution 11-02 00:00: 00 Yes [id number] 1.25mg Use 3 mL as directed every 6 (six) hours as needed for Wheezing, Shortness of Breath or Bronchospa sm. [facility] albuterol 1.25 mg/3 mL nebulizer solution 11-02 00:00: 00 Yes [id number] 1.25mg Use 3 mL as directed every 6 (six) hours as needed for Wheezing, Shortness of Breath or Bronchospa sm. [facility] albuterol 1.25 mg/3 mL nebulizer solution 11-02 00:00: 00 Yes [id number] 1.25mg Use 3 mL as directed every 6 (six) hours as needed for Wheezing, Shortness of Breath or Bronchospa sm. [facility] albuterol 1.25 mg/3 mL nebulizer solution 11-02 00:00: 00 Yes [id number] 1.25mg Use 3 mL as directed every 6 (six) hours as needed for Wheezing, Shortness of Breath or Bronchospa sm. [facility] albuterol 1.25 mg/3 mL nebulizer solution 11-02 00:00: 00 Yes [id number] 1.25mg Use 3 mL as directed every 6 (six) hours as needed for Wheezing, Shortness of Breath or Bronchospa sm. [facility] albuterol 1.25 mg/3 mL nebulizer solution 11-02 00:00: 00 Yes [id number] 1.25mg Use 3 mL as directed every 6 (six) hours as needed for Wheezing, Shortness of Breath or Bronchospa sm. [facility] albuterol 1.25 mg/3 mL nebulizer solution 11-02 00:00: 00 Yes [id number] 1.25mg Use 3 mL as directed every 6 (six) hours as needed for Wheezing, Shortness of Breath or Bronchospa sm. [facility] albuterol 1.25 mg/3 mL nebulizer solution 11-02 00:00: 00 Yes [id number] 1.25mg Use 3 mL as directed every 6 (six) hours as needed for Wheezing, Shortness of Breath or Bronchospa sm. [facility] albuterol 1.25 mg/3 mL nebulizer solution 11-02 00:00: 00 Yes [id number] 1.25mg Use 3 mL as directed every 6 (six) hours as needed for Wheezing, Shortness of Breath or Bronchospa sm. [facility] albuterol 1.25 mg/3 mL nebulizer solution 11-02 00:00: 00 Yes [id number] 1.25mg Use 3 mL as directed every 6 (six) hours as needed for Wheezing, Shortness of Breath or Bronchospa sm. [facility] albuterol 1.25 mg/3 mL nebulizer solution 11-02 00:00: 00 Yes [id number] 1.25mg Use 3 mL as directed every 6 (six) hours as needed for Wheezing, Shortness of Breath or Bronchospa sm. [facility] albuterol 1.25 mg/3 mL nebulizer solution 11-02 00:00: 00 Yes [id number] 1.25mg Use 3 mL as directed every 6 (six) hours as needed for Wheezing, Shortness of Breath or Bronchospa sm. [facility] albuterol 1.25 mg/3 mL nebulizer solution 11-02 00:00: 00 Yes [id number] 1.25mg Use 3 mL as directed every 6 (six) hours as needed for Wheezing, Shortness of Breath or Bronchospa sm. [facility] albuterol 1.25 mg/3 mL nebulizer solution 11-02 00:00: 00 Yes [id number] 1.25mg Use 3 mL as directed every 6 (six) hours as needed for Wheezing, Shortness of Breath or Bronchospa sm. [facility] albuterol 1.25 mg/3 mL nebulizer solution 11-02 00:00: 00 Yes [id number] 1.25mg Use 3 mL as directed every 6 (six) hours as needed for Wheezing, Shortness of Breath or Bronchospa sm. [facility] albuterol 1.25 mg/3 mL nebulizer solution 11-02 00:00: 00 Yes [id number] 1.25mg Use 3 mL as directed every 6 (six) hours as needed for Wheezing, Shortness of Breath or Bronchospa sm. [facility] albuterol 1.25 mg/3 mL nebulizer solution 11-02 00:00: 00 Yes [id number] 1.25mg Use 3 mL as directed every 6 (six) hours as needed for Wheezing, Shortness of Breath or Bronchospa sm. [facility] albuterol 1.25 mg/3 mL nebulizer solution 11-02 00:00: 00 Yes [id number] 1.25mg Use 3 mL as directed every 6 (six) hours as needed for Wheezing, Shortness of Breath or Bronchospa sm. [facility] albuterol 1.25 mg/3 mL nebulizer solution 11-02 00:00: 00 Yes [id number] 1.25mg Use 3 mL as directed every 6 (six) hours as needed for Wheezing, Shortness of Breath or Bronchospa sm. [facility] albuterol 1.25 mg/3 mL nebulizer solution 11-02 00:00: 00 Yes [id number] 1.25mg Use 3 mL as directed every 6 (six) hours as needed for Wheezing, Shortness of Breath or Bronchospa sm. [facility] albuterol 1.25 mg/3 mL nebulizer solution 11-02 00:00: 00 Yes [id number] 1.25mg Use 3 mL as directed every 6 (six) hours as needed for Wheezing, Shortness of Breath or Bronchospa sm. [facility] albuterol 1.25 mg/3 mL nebulizer solution 11-02 00:00: 00 Yes [id number] 1.25mg Use 3 mL as directed every 6 (six) hours as needed for Wheezing, Shortness of Breath or Bronchospa sm. [facility] albuterol 1.25 mg/3 mL nebulizer solution 11-02 00:00: 00 Yes [id number] 1.25mg Use 3 mL as directed every 6 (six) hours as needed for Wheezing, Shortness of Breath or Bronchospa sm. [facility] albuterol 1.25 mg/3 mL nebulizer solution 11-02 00:00: 00 Yes [id number] 1.25mg Use 3 mL as directed every 6 (six) hours as needed for Wheezing, Shortness of Breath or Bronchospa sm. [facility] albuterol 1.25 mg/3 mL nebulizer solution 11-02 00:00: 00 Yes [id number] 1.25mg Use 3 mL as directed every 6 (six) hours as needed for Wheezing, Shortness of Breath or Bronchospa sm. [facility] albuterol 1.25 mg/3 mL nebulizer solution 11-02 00:00: 00 Yes [id number] 1.25mg Use 3 mL as directed every 6 (six) hours as needed for Wheezing, Shortness of Breath or Bronchospa sm. [facility] albuterol 1.25 mg/3 mL nebulizer solution 11-02 00:00: 00 Yes [id number] 1.25mg Use 3 mL as directed every 6 (six) hours as needed for Wheezing, Shortness of Breath or Bronchospa sm. [facility] albuterol 1.25 mg/3 mL nebulizer solution 11-02 00:00: 00 Yes [id number] 1.25mg Use 3 mL as directed every 6 (six) hours as needed for Wheezing, Shortness of Breath or Bronchospa sm. [facility] LISINOPRIL 20 mg tablet 10-25 00:00: 00 05-12 00:00 :00 No [id number] Take 1 tablet by mouth once daily [facility] LISINOPRIL 20 mg tablet 10-25 00:00: 00 05-12 00:00 :00 No [id number] Take 1 tablet by mouth once daily [facility] LISINOPRIL 20 mg tablet 10-25 00:00: 00 05-12 00:00 :00 No [id number] Take 1 tablet by mouth once daily [facility] LISINOPRIL 20 mg tablet 10-25 00:00: 00 05-12 00:00 :00 No [id number] Take 1 tablet by mouth once daily [facility] LISINOPRIL 20 mg tablet 10-25 00:00: 00 05-12 00:00 :00 No [id number] Take 1 tablet by mouth once daily [facility] LISINOPRIL 20 mg tablet 10-25 00:00: 00 05-12 00:00 :00 No [id number] Take 1 tablet by mouth once daily [facility] LISINOPRIL 20 mg tablet 10-25 00:00: 00 05-12 00:00 :00 No [id number] Take 1 tablet by mouth once daily [facility] LISINOPRIL 20 mg tablet 10-25 00:00: 00 05-12 00:00 :00 No [id number] Take 1 tablet by mouth once daily [facility] LISINOPRIL 20 mg tablet 10-25 00:00: 00 05-12 00:00 :00 No [id number] Take 1 tablet by mouth once daily [facility] LISINOPRIL 20 mg tablet 10-25 00:00: 00 05-12 00:00 :00 No [id number] Take 1 tablet by mouth once daily [facility] montelukast 10 mg tablet 08-20 00:00: 00 03-02 00:00 :00 No [id number] 10mg Take 1 tablet by mouth daily. [facility] buPROPion XL (WELLBUTRIN XL) 150 mg 24 hr tablet 08-18 00:00: 00 03-18 00:00 :00 No [id number] 150mg Take 1 tablet by mouth daily. [facility] buPROPion XL (WELLBUTRIN XL) 150 mg 24 hr tablet 08-18 00:00: 03-18 00:00 :00 No [id number] 150mg Take 1 tablet by mouth daily. [facility] buPROPion XL (WELLBUTRIN XL) 150 mg 24 hr tablet 08-18 00:00: 03-18 00:00 :00 No [id number] 150mg Take 1 tablet by mouth daily. [facility] escitalopra m oxalate 20 mg tablet 07-16 00:00: 01-12 00:00 :00 No [id number] 20mg Take 1 tablet by mouth daily. [facility] albuterol 90 mcg/actuati on inhaler 07-08 00:00: 00 Yes [id number] 2{puff} Inhale 2 Puffs every 6 (six) hours as needed for Wheezing or Shortness of Breath. [facility] albuterol 90 mcg/actuati on inhaler 07-08 00:00: 00 Yes [id number] 2{puff} Inhale 2 Puffs every 6 (six) hours as needed for Wheezing or Shortness of Breath. [facility] albuterol 90 mcg/actuati on inhaler 07-08 00:00: 00 Yes [id number] 2{puff} Inhale 2 Puffs every 6 (six) hours as needed for Wheezing or Shortness of Breath. [facility] albuterol 90 mcg/actuati on inhaler 07-08 00:00: 00 Yes [id number] 2{puff} Inhale 2 Puffs every 6 (six) hours as needed for Wheezing or Shortness of Breath. [facility] albuterol 90 mcg/actuati on inhaler 12 00:00: 00 Yes [id number] 2{puff} Inhale 2 Puffs every 6 (six) hours as needed for Wheezing or Shortness of Breath. [facility] albuterol 90 mcg/actuati on inhaler 12 00:00: 00 Yes [id number] 2{puff} Inhale 2 Puffs every 6 (six) hours as needed for Wheezing or Shortness of Breath. [facility] albuterol 90 mcg/actuati on inhaler 2020-0 312 00:00: 00 Yes [id number] 2{puff} Inhale 2 Puffs every 6 (six) hours as needed for Wheezing or Shortness of Breath. [facility] albuterol 90 mcg/actuati on inhaler 20200 3 00:00: 00 Yes [id number] 2{puff} Inhale 2 Puffs every 6 (six) hours as needed for Wheezing or Shortness of Breath. [facility] albuterol 90 mcg/actuati on inhaler 20200 3 00:00: 00 Yes [id number] 2{puff} Inhale 2 Puffs every 6 (six) hours as needed for Wheezing or Shortness of Breath. [facility] albuterol 90 mcg/actuati on inhaler 20200 07-08 00:00: 00 Yes [id number] 2{puff} Inhale 2 Puffs every 6 (six) hours as needed for Wheezing or Shortness of Breath. [facility] albuterol 90 mcg/actuati on inhaler 20200 07-08 00:00: 00 Yes [id number] 2{puff} Inhale 2 Puffs every 6 (six) hours as needed for Wheezing or Shortness of Breath. [facility] albuterol 90 mcg/actuati on inhaler 20200 07-08 00:00: 00 Yes [id number] 2{puff} Inhale 2 Puffs every 6 (six) hours as needed for Wheezing or Shortness of Breath. [facility] albuterol 90 mcg/actuati on inhaler 20200 3 00:00: 00 Yes [id number] 2{puff} Inhale 2 Puffs every 6 (six) hours as needed for Wheezing or Shortness of Breath. [facility] albuterol 90 mcg/actuati on inhaler 20200 312 00:00: 00 Yes [id number] 2{puff} Inhale 2 Puffs every 6 (six) hours as needed for Wheezing or Shortness of Breath. [facility] albuterol 90 mcg/actuati on inhaler 20200 312 00:00: 00 Yes [id number] 2{puff} Inhale 2 Puffs every 6 (six) hours as needed for Wheezing or Shortness of Breath. [facility] albuterol 90 mcg/actuati on inhaler 20200 312 00:00: 00 Yes [id number] 2{puff} Inhale 2 Puffs every 6 (six) hours as needed for Wheezing or Shortness of Breath. [facility] albuterol 90 mcg/actuati on inhaler 20200 3 00:00: 00 Yes [id number] 2{puff} Inhale 2 Puffs every 6 (six) hours as needed for Wheezing or Shortness of Breath. [facility] albuterol 90 mcg/actuati on inhaler 20200 07-08 00:00: 00 Yes [id number] 2{puff} Inhale 2 Puffs every 6 (six) hours as needed for Wheezing or Shortness of Breath. [facility] albuterol 90 mcg/actuati on inhaler 20200 07-08 00:00: 00 Yes [id number] 2{puff} Inhale 2 Puffs every 6 (six) hours as needed for Wheezing or Shortness of Breath. [facility] albuterol 90 mcg/actuati on inhaler 20200 07-08 00:00: 00 Yes [id number] 2{puff} Inhale 2 Puffs every 6 (six) hours as needed for Wheezing or Shortness of Breath. [facility] albuterol 90 mcg/actuati on inhaler 20200 07-08 00:00: 00 Yes [id number] 2{puff} Inhale 2 Puffs every 6 (six) hours as needed for Wheezing or Shortness of Breath. [facility] albuterol 90 mcg/actuati on inhaler 20200 312 00:00: 00 Yes [id number] 2{puff} Inhale 2 Puffs every 6 (six) hours as needed for Wheezing or Shortness of Breath. [facility] albuterol 90 mcg/actuati on inhaler 20200 312 00:00: 00 Yes [id number] 2{puff} Inhale 2 Puffs every 6 (six) hours as needed for Wheezing or Shortness of Breath. [facility] albuterol 90 mcg/actuati on inhaler 20200 3-12 00:00: 00 Yes [id number] 2{puff} Inhale 2 Puffs every 6 (six) hours as needed for Wheezing or Shortness of Breath. [facility] albuterol 90 mcg/actuati on inhaler 20200 312 00:00: 00 Yes [id number] 2{puff} Inhale 2 Puffs every 6 (six) hours as needed for Wheezing or Shortness of Breath. [facility] albuterol 90 mcg/actuati on inhaler 20200 3 00:00: 00 Yes [id number] 2{puff} Inhale 2 Puffs every 6 (six) hours as needed for Wheezing or Shortness of Breath. [facility] albuterol 90 mcg/actuati on inhaler 0 3 00:00: 00 Yes [id number] 2{puff} Inhale 2 Puffs every 6 (six) hours as needed for Wheezing or Shortness of Breath. [facility] albuterol 90 mcg/actuati on inhaler 0 07-08 00:00: 00 Yes [id number] 2{puff} Inhale 2 Puffs every 6 (six) hours as needed for Wheezing or Shortness of Breath. [facility] albuterol 90 mcg/actuati on inhaler 07-08 00:00: 00 Yes [id number] 2{puff} Inhale 2 Puffs every 6 (six) hours as needed for Wheezing or Shortness of Breath. [facility] albuterol 90 mcg/actuati on inhaler 20200 312 00:00: 00 Yes [id number] 2{puff} Inhale 2 Puffs every 6 (six) hours as needed for Wheezing or Shortness of Breath. [facility] albuterol 90 mcg/actuati on inhaler 20200 3-12 00:00: 00 Yes [id number] 2{puff} Inhale 2 Puffs every 6 (six) hours as needed for Wheezing or Shortness of Breath. [facility] albuterol 90 mcg/actuati on inhaler 2020-0 3-12 00:00: 00 Yes [id number] 2{puff} Inhale 2 Puffs every 6 (six) hours as needed for Wheezing or Shortness of Breath. [facility] albuterol 90 mcg/actuati on inhaler 07-08 00:00: 00 Yes [id number] 2{puff} Inhale 2 Puffs every 6 (six) hours as needed for Wheezing or Shortness of Breath. [facility] albuterol 90 mcg/actuati on inhaler 07-08 00:00: 00 Yes [id number] 2{puff} Inhale 2 Puffs every 6 (six) hours as needed for Wheezing or Shortness of Breath. [facility] albuterol 90 mcg/actuati on inhaler 07-08 00:00: 00 Yes [id number] 2{puff} Inhale 2 Puffs every 6 (six) hours as needed for Wheezing or Shortness of Breath. [facility] [place] 3 No [place] 3 Montelukast Sodium Montelukast Sodium No Montelukas t Sodium clonazePAM clonazePAM No clonazePAM buPROPion HCl ER (XL) buPROPion HCl ER (XL) No buPROPion HCl ER (XL) Advair HFA Advair HFA No Advair HFA Ibuprofen Ibuprofen No Ibuprofen medroxyPROG ESTERone Acetate medroxyPROG ESTERone Acetate No medroxyPRO GESTERone Acetate Testosteron e Testosteron e No Testostero ne hydroCHLORO thiazide hydroCHLORO thiazide No hydroCHLOR Othiazide Gabapentin Gabapentin No Gabapentin Lisinopril Lisinopril No Lisinopril Vitamin D (Ergocalcif sherman) Vitamin D (Ergocalcif sherman) No Vitamin D (Ergocalci ferol) Golytely Golytely No Golytely Calcium Calcium No Calcium Losartan Potassium Losartan Potassium No Losartan Potassium Progesteron e Progesteron e No Progestero ne Symbicort Symbicort No Symbicort Bijuva Bijuva No Bijuva miSOPROStol miSOPROStol No mi SOPROSto l Phentermine HCl Phentermine HCl No Phentermin e HCl clonazePAM clonazePAM No clonazePAM Magnesium Magnesium No Magnesium Pantoprazol e Sodium Pantoprazol e Sodium No Pantoprazo le Sodium [place] 3 [place] 3 No [place] 3 Montelukast Sodium Montelukast Sodium No Montelukas t Sodium clonazePAM clonazePAM No clonazePAM buPROPion HCl ER (XL) buPROPion HCl ER (XL) No buPROPion HCl ER (XL) Advair HFA Advair HFA No Advair HFA Ibuprofen Ibuprofen No Ibuprofen medroxyPROG ESTERone Acetate medroxyPROG ESTERone Acetate No medroxyPRO GESTERone Acetate Testosteron e Testosteron e No Testostero ne hydroCHLORO thiazide hydroCHLORO thiazide No hydroCHLOR Othiazide Gabapentin Gabapentin No Gabapentin Lisinopril Lisinopril No Lisinopril Vitamin D (Ergocalcif sherman) Vitamin D (Ergocalcif sherman) No Vitamin D (Ergocalci ferol) Golytely Golytely No Golytely Calcium Calcium No Calcium Losartan Potassium Losartan Potassium No Losartan Potassium Progesteron e Progesteron e No Progestero ne hydroCHLORO thiazide hydroCHLORO thiazide No hydroCHLOR Othiazide buPROPion HCl ER (XL) buPROPion HCl ER (XL) No buPROPion HCl ER (XL) Phentermine HCl Phentermine HCl No Phentermin e HCl Lisinopril Lisinopril No Lisinopril medroxyPROG ESTERone Acetate medroxyPROG ESTERone Acetate No medroxyPRO GESTERone Acetate Gabapentin Gabapentin No Gabapentin Symbicort Symbicort No Symbicort clonazePAM clonazePAM No clonazePAM Ibuprofen Ibuprofen No Ibuprofen Progesteron e Progesteron e No Progestero ne Golytely Golytely No Golytely miSOPROStol miSOPROStol No mi SOPROSto l Montelukast Sodium Montelukast Sodium No Montelukas t Sodium Vitamin D (Ergocalcif sherman) Vitamin D (Ergocalcif sherman) No Vitamin D (Ergocalci ferol) Pantoprazol e Sodium Pantoprazol e Sodium No Pantoprazo le Sodium Symbicort Symbicort No Symbicort Bijuva Bijuva No Bijuva miSOPROStol miSOPROStol No mi SOPROSto l Phentermine HCl Phentermine HCl No Phentermin e HCl clonazePAM clonazePAM No clonazePAM Magnesium Magnesium No Magnesium Pantoprazol e Sodium Pantoprazol e Sodium No Pantoprazo le Sodium Vital Signs Vital Name Observation Time Observation Value Comments Hipolito shrestha height 2022-10-24 13:15:00 66 [in_i] Commo n [facility] weight 2022-10-24 13:15:00 220 [lb_av] Comm on [facility] temperature 2022-10-24 13:15:00 97.9 [degF] Com mon [facility] bmi 2022-10-24 13:15:00 35.51 kg/m2 Comm on [facility] blood pressure systolic 2022-10-24 13:15:00 139 mm[Hg] [facility] blood pressure diastolic 2022-10-24 13:15:00 84 mm[Hg] Common [facility] height 2022-09-12 14:30:00 66 [in_i] Commo n [facility] weight 2022-09-12 14:30:00 213 [lb_av] Comm on [facility] temperature 2022-09-12 14:30:00 98.0 [degF] Com mon [facility] bmi 2022-09-12 14:30:00 34.38 kg/m2 Comm on [facility] blood pressure systolic 2022-09-12 14:30:00 136 mm[Hg] [facility] blood pressure diastolic 2022-09-12 14:30:00 84 mm[Hg] [facility] height 2020-12-20 13:00:00 66 [in_i] Commo n [facility] weight 2020-12-20 13:00:00 252.4 [lb_av] Co mmon [facility] bmi 2020-12-20 13:00:00 40.73 kg/m2 Comm on [facility] blood pressure systolic 2020-12-20 13:00:00 142 mm[Hg] [facility] blood pressure diastolic 2020-12-20 13:00:00 88 mm[Hg] [facility] Procedures Procedure Date / Time Performed Performing Clinician Source MEDICATION CORRESPONDENCE 2021-03-14 06:01:00 Do ctor Unassigned, Jane Lew [facility] Encounters Start Date/Time End Date/Time Encounter Type Admission Type Attending Clinicians Care Facility Care Department Encounter ID Source 2022-10-26 07:06[facility] [id number] [facility] 2022-09-12 14:28:00 [facility] [id number] [facility] 2021-05-24 13:42:15 [facility] [id number] [facility] 2021-02-25 11:11:14 Outpatient CARL HUFF [facility] [id number] [facility] 2021-02-25 09:12:05 Outpatient CARL VICENTE [facility] [id number] [facility] 2021-02-25 02:59:32 Outpatient DIGNA JACKSON [facility] [id number] [facility] 2023-03-22 00:00:00 2023-03-22 00:00:00 Outpatient GC_GCBZW_Ro man_M PRIV PRIV [id number] [facility] 2023-03-01 00:00:00 2023-03-01 00:00:00 Outpatient GC_GCBZW_Ro man_M PRIV PRIV [id number] [facility] 2023-03-01 00:00:00 2023-03-01 00:00:00 Outpatient GC_GCBZW_Ro man_M PRIV PRIV [id number] [facility] 2023-02-14 00:00:00 2023-02-14 00:00:00 Outpatient GC_GCBZW_Ro man_M PRIV PRIV [id number] [facility] 2023-02-14 00:00:00 2023-02-14 00:00:00 Outpatient GC_GCBZW_Ro man_M PRIV PRIV [id number] [facility] 2023-01-30 00:00:00 2023-01-30 00:00:00 Outpatient GC_GCBZW_Ro man_M PRIV PRIV [id number] [facility] 2023-01-24 00:00:00 2023-01-24 00:00:00 Outpatient GC_GCBZW_Ro man_M PRIV PRIV [id number] [facility] 2023-01-24 00:00:00 2023-01-24 00:00:00 Outpatient GC_GCBZW_Ro man_M PRIV PRIV [id number] [facility] 2023-01-24 00:00:00 2023-01-24 00:00:00 Outpatient GC_GCBZW_Ro man_M PRIV PRIV [id number] [facility] 2023-01-15 00:00:00 2023-01-15 00:00:00 Outpatient GC_GCBZW_Ro man_M PRIV PRIV [id number] [facility] 2023-01-15 00:00:00 2023-01-15 00:00:00 Outpatient GC_GCBZW_Ro man_M PRIV PRIV [id number] [facility] 2022-11-14 00:00:00 2022-11-14 00:00:00 Outpatient GC_SWHAWSSL _Tharappe PRIV PRIV [id number] [facility] 2022-10-24 00:00:00 2022-10-24 00:00:00 OFFICE VISIT ESTAB PT [facility]EVEL [facility] [id number] [facility] 2022-09-12 00:00:00 2022-09-12 00:00:00 OFFICE VISIT NEW PT LEVEL 3 [facility] ST[facility] [id number] [facility] 2022-03-10 00:00:00 2022-03-10 00:00:00 Outpatient GC_SWHAWSSL _Tharappe PRIV PRIV [id number] [facility] 2022-02-06 00:00:00 2022-02-06 00:00:00 Outpatient PRIV PRIV [id number] [facility] 2021-10-24 00:00:00 2021-10-24 00:00:00 Refill Thong Bautisat [facility] 1..840.114 350.1.13.10 4.2.7.2.686 [id number] [id number] [facility] 2021-04-14 00:00:00 2021-04-14 00:00:00 Patient Secure Msg Doctor Unassigned, Jane Lew [facility] 1..840.114 350.1.13.10 4.2.7.2.686 [id number] [facility] 2021-03-14 00:00:00 2021-03-14 00:00:00 Orders Only Doctor Unassigned, Jane Lew [facility] 1..840.114 350.1.13.10 4.2.7.2.686 [id number] [facility] 2021-03-13 00:00:00 2021-03-13 00:00:00 Telephone Thong Bautista [facility] 1..840.114 350.1.13.10 4.2.7.2.686 [id number] [facility] 2021-03-09 00:00:00 2021-03-09 00:00:00 Refill Thong Bautista [facility] OFFICE BUILDING ONE 1..840.114 350.1.13.10 4.2.7.2.686 [id number] [id number] [facility] 2021-02-15 10:30:00 2021-02-15 10:30:00 Outpatient KARLIE FIELDS [facility] [id number] [facility] 2021-01-23 00:00:00 2021-01-23 00:00:00 Patient Secure Msg Doctor Unassigned, Jane Lew [facility] 1.114 350.1.13.10 4.2.7.2.686 [id number] [facility] 2021-01-18 00:00:00 2021-01-18 00:00:00 Refill Jacksonalice Thong [facility] Office Building One 1.114 350.1.13.10 4.2.7.2.686 [id number] [id number] [facility] 2020-12-29 00:00:00 2020-12-29 00:00:00 Telephone Thong Bautista [facility] Office Building 1.114 350.1.13.10 4.2.7.2.686 [id number] [id number] [facility] 2020-12-26 00:00:00 2020-12-26 00:00:00 Patient Secure Msg Albina Reich [facility] Office Building 1.114 350.1.13.10 4.2.7.2.686 [id number] [id number] [facility] 2020-12-20 00:00:00 2020-12-20 00:00:00 OFFICE VISIT NEW PT LEVEL 4 STLMLC STLMLC [id number] [facility] 2020-12-19 00:00:00 2020-12-19 00:00:00 Patient Secure Msg [facility] One .114 350.1.13.10 4.2.7.2.686 [id number] [id number] [facility] 2020-11-24 00:00:00 2020-11-24 00:00:00 Refill JacksonaliceThong [facility] Office Building One 1.2.840.114 350.1.13.10 4.2.7.2.686 [id number] 044 [id number] [facility] 2020-11-17 00:00:00 2020-11-17 00:00:00 Refcatherine Bautista [facility] Office Building One 1.2.840.114 350.1.13.10 4.2.7.2.686 [id number] 044 [id number] [facility] 2020-11-03 00:00:00 2020-11-03 00:00:00 Refill Lily [facility] Office Building One 1.2.840.114 350.1.13.10 4.2.7.2.686 [id number] 044 [id number] [facility] 2020-10-27 00:00:00 2020-10-27 00:00:00 Refill Lily [facility] Office Building One 1.2840.114 350.1.13.10 4.2.7.2.686 [id number] 044 [id number] [facility] 2020-10-22 00:00:00 2020-10-22 00:00:00 Refcatherine Bautista [facility] Office Building One 1.2840.114 350.1.13.10 4.2.7.2.686 [id number] 044 [id number] [facility] 2020-10-11 00:00:00 2020-10-11 00:00:00 Refill Lily [facility] Office Building One 1.2840.114 350.1.13.10 4.2.7.2.686 [id number] 044 [id number] [facility] 2020-10-09 00:00:00 2020-10-09 00:00:00 Refill Lily [facility] Office Building One 1.0.114 350.1.13.10 4.2.7.2.686 [id number] 044 [id number] [facility] 2020-09-30 00:00:00 2020-09-30 00:00:00 Refill Lily [facility] Office Building One 1.0.114 350.1.13.10 4.2.7.2.686 [id number] 044 [id number] [facility] 2020-09-06 00:00:00 2020-09-06 00:00:00 Refill Lily [facility] Office Building One 1..114 350.1.13.10 4.2.7.2.686 [id number] [id number] [facility] 2020-07-12 00:00:00 2020-07-12 00:00:00 Patient Outreach Marco Burrows [facility] 1.0.114 350.1.13.10 4.2.7.2.686 [id number] [facility] 2020-06-30 00:00:00 2020-06-30 00:00:00 Telephone Lily [facility] Office Building One 1.114 350.1.13.10 4.2.7.2.686 [id number] [facility] 2020-05-23 09:15:00 2020-05-23 09:15:00 Outpatient CARL HUFF [facility] [id number] [facility] 2020-05-22 16:11:24 2020-05-22 17:33:14 Urgent Care Provider, [facility] Sharon Maravilla [facility] Office Building One 1..114 350.1.13.10 4.2.7.2.686 [id number] 044 [id number] [facility] 2020-05-22 16:11:24 2020-05-22 17:33:14 Urgent Care Provider, [facility] Office Building One 1..114 350.1.13.10 4.2.7.2.686 [id number] 2020-05-22 16:40:00 2020-05-22 16:40:00 Outpatient R SHARON MARAVILLA [facility] [id number] [facility] 2020-05-19 14:30:00 2020-05-19 14:30:00 Outpatient R CARL VICENTE [facility] [id number] [facility] 2020-05-19 00:00:00 2020-05-19 00:00:00 Patient Secure Msg Carl Vicente [facility] NAL BUILDING 1.0.114 350.1.13.10 4.2.7.2.686 [id number] [facility] 2020-05-17 00:00:00 2020-05-17 00:00:00 Telephone Thong Bautista [facility] Office Building One 1..114 350.1.13.10 4.2.7.2.686 [id number] 044 [id number] [facility] 2020-05-17 00:00:00 2020-05-17 00:00:00 Telephone Thong Bautista [facility] Office Building One ..114 350.1.13.10 4.2.7.2.686 [id number] 044 [id number] [facility] 2020-05-17 00:00:00 2020-05-17 00:00:00 Patient Secure Msg Lily [facility] OFFICE BUILDING ONE ..114 350.1.13.10 4.2.7.2.686 [id number] 044 [id number] [facility] 2020-05-17 00:00:00 2020-05-17 00:00:00 Telephone Thong Bautista [facility] Office Building One 1.2.840.114 350.1.13.10 4.2.7.2.686 [id number] 044 [id number] 2020-05-17 00:00:00 2020-05-17 00:00:00 Telephone Liyl [facility] Office Building One 1.2.840.114 350.1.13.10 4.2.7.2.686 [id number] 044 [id number] 2020-05-11 00:00:00 2020-05-11 00:00:00 Refill Lily [facility] Office Building One 1.2.840.114 350.1.13.10 4.2.7.2.686 [id number] 044 [id number] [facility] 2020-05-11 00:00:00 2020-05-11 00:00:00 Patient Secure MsCarl Beebe [facility] BUILDING 1.2.840.114 350.1.13.10 4.2.7.2.686 [id number] [facility] 2020-05-11 00:00:00 2020-05-11 00:00:00 Refill Lily [facility] Office Building One 1.2.840.114 350.1.13.10 4.2.7.2.686 [id number] 044 [id number] 2020-05-04 00:00:00 2020-05-04 00:00:00 Refill Lily [facility] Office Building One 1.2.840.114 350.1.13.10 4.2.7.2.686 [id number] [facility] 2020-05-04 00:00:00 2020-05-04 00:00:00 Patient Secure Msg Thong Bautista [facility] OFFICE BUILDING ONE 1.2840.114 350.1.13.10 4.2.7.2.686 [id number] [id number] [facility] 2020-05-04 00:00:00 2020-05-04 00:00:00 Krzysztof Bautista [facility] Office Building One 1.2840.114 350.1.13.10 4.2.7.2.686 [id number] [id number] 2020-05-02 00:00:00 2020-05-02 00:00:00 Patient Secure g Lily [facility] Office Building One 1.2840.114 350.1.13.10 4.2.7.2.686 [id number] 044 [id number] [facility] 2020-05-02 00:00:00 2020-05-02 00:00:00 Patient Secure g Lily [facility] Office Building One 1.2840.114 350.1.13.10 4.2.7.2.686 [id number] 044 [id number] 2020-04-30 00:00:00 2020-04-30 00:00:00 Krzysztof Bautista [facility] Office Building One 1.2840.114 350.1.13.10 4.2.7.2.686 [id number] [id number] [facility] 2020-04-30 00:00:00 2020-04-30 00:00:00 Krzysztof Bautista [facility] Office Building One 1.2840.114 350.1.13.10 4.2.7.2.686 [id number] [id number] 2020-04-26 09:00:00 2020-04-26 09:00:00 Outpatient R DOROTHEA ALVAREZ [facility] [id number] [facility] 2020-04-20 14:52:53 2020-04-20 15:33:34 Office Visit Carl Vicente [facility] Building 1.2.114 350.1.13.10 4.2.7.2.686 [id number] [facility] 2020-04-20 14:52:53 2020-04-20 15:33:34 Office Visit Carl Vicente [facility] Building 1..114 350.1.13.10 4.2.7.2.686 [id number] 2020-04-20 15:00:00 2020-04-20 15:00:00 Outpatient R [facility]ES [facility] [id number] [facility] 2020-04-20 00:00:00 2020-04-20 00:00:00 Orders Only Doctor Unassigned, Jane Lew [facility] 1..114 350.1.13.10 4.2.7.2.686 [id number] [facility] 2020-04-20 00:00:00 2020-04-20 00:00:00 Orders Only Doctor Unassigned, Jane Lew [facility] 1.20.114 350.1.13.10 4.2.7.2.686 [id number] 2020-04-18 00:00:00 2020-04-18 00:00:00 Patient Secure Msg Carl Vicente [facility] BUILDING 1.2.114 350.1.13.10 4.2.7.2.686 [id number] [facility] 2020-04-15 00:00:00 2020-04-15 00:00:00 Patient Secure Msg Carl Vicente [facility] BUILDING 1.2.840.114 350.1.13.10 4.2.7.2.686 [id number] [facility] 2020-04-13 00:00:00 2020-04-13 00:00:00 Patient Secure Thong Fields [facility] OFFICE BUILDING ONE 1.2114 350.1.13.10 4.2.7.2.686 [id number] 044 [id number] [facility] 2020-04-12 06:39:00 2020-04-12 10:45:00 Hospital Encounter Carl Vicente [facility] [place] 1.2.114 350.1.13.10 4.2.7.2.686 [id number] [facility] 2020-04-11 15:28:19 2020-04-11 15:43:19 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 1.2114 350.1.13.10 4.2.7.2.686 [id number] [facility] 2020-04-11 15:30:00 2020-04-11 15:30:00 Outpatient R CARL VICENTE [facility] [id number] [facility] 2020-04-11 13:00:00 2020-04-11 13:00:00 Outpatient R [facility] [id number] [facility] 2020-04-11 00:00:00 2020-04-11 00:00:00 Telephone Carl Vicente [facility] Building 1.2114 350.1.13.10 4.2.7.2.686 [id number] [facility] 2020-04-08 00:00:00 2020-04-08 00:00:00 Patient Secure Msg Carl Vicente [facility] NAL BUILDING 1..840.114 350.1.13.10 4.2.7.2.686 [id number] [facility] 2020-04-07 00:00:00 2020-04-07 00:00:00 Patient Secure Msg Lily [facility] OFFICE BUILDING ONE 1.84.114 350.1.13.10 4.2.7.2.686 [id number] [facility] 2020-04-06 13:00:00 2020-04-06 13:00:00 Outpatient KAMALA RUELAS [facility] [id number] [facility] 2020-04-06 00:00:00 2020-04-06 00:00:00 Telephone Thong Bautista [facility] Office Building One 1.84.114 350.1.13.10 4.2.7.2.686 [id number] [facility] 2020-04-05 00:00:00 2020-04-05 00:00:00 Patient Secure g Carl Vicente [facility] BUILDING 1.840.114 350.1.13.10 4.2.7.2.686 [id number] [facility] 2020-04-05 00:00:00 2020-04-05 00:00:00 Patient Secure Msg Thong Bautista [facility] OFFICE BUILDING ONE 1.84.114 350.1.13.10 4.2.7.2.686 [id number] 044 [id number] [facility] 2020-04-05 00:00:00 2020-04-05 00:00:00 [facility] 1..114 350.1.13.10 4.2.7.2.686 [id number] [id number] [facility] 2020-04-04 00:00:00 2020-04-04 00:00:00 Patient Secure Msg Doctor Unassigned, Jane Lew [facility] 1.0.114 350.1.13.10 4.2.7.2.686 [id number] [facility] 2020-04-04 00:00:00 2020-04-04 00:00:00 [facility] 1.114 350.1.13.10 4.2.7.2.686 [id number] [facility] 2020-04-01 12:30:00 2020-04-01 12:30:00 Outpatient R [facility] [id number] [facility] 2020-04-01 12:01:51 2020-04-01 12:16:51 Wire Coiler Machine Operator Visit Poaezem, Tamiko [facility] 1.114 350.1.13.10 4.2.7.2.686 [id number] [facility] 2020-04-01 00:00:00 2020-04-01 00:00:00 Orders Only Doctor Unassigned, Jane Lew [facility] 1..114 350.1.13.10 4.2.7.2.686 [id number] [facility] 2020-03-29 00:00:00 2020-03-29 00:00:00 Telephone Lily [facility] Office Building One 1.114 350.1.13.10 4.2.7.2.686 [id number] [facility] 2020-03-28 00:00:00 2020-03-28 00:00:00 Telephone Thong Bautista [facility] Office Building One 1.114 350.1.13.10 4.2.7.2.686 [id number] [id number] [facility] 2020-03-22 09:00:00 2020-03-22 09:00:00 Outpatient R KARLIE ELIZONDO [facility] [id number] [facility] 2020-03-18 06:09:00 2020-03-18 08:45:00 Hospital Encounter Digna Jackson [facility] [place] 1.114 350.1.13.10 4.2.7.2.686 [id number] [facility] 2020-03-18 00:00:00 2020-03-18 00:00:00 Orders Only Doctor Unassigned, Jane Lew [facility] 1.114 350.1.13.10 4.2.7.2.686 [id number] [facility] 2020-03-17 13:15:00 2020-03-17 13:15:00 Outpatient R DIGNA JACKSON [facility] [id number] [facility] 2020-03-16 14:14:54 2020-03-16 15:03:14 Office Visit Carl Vicente [facility] Building 1.114 350.1.13.10 4.2.7.2.686 [id number] [facility] 2020-03-16 13:54:33 2020-03-16 14:09:33 Laboratory Only Only, Adc Test Digna Jackson [facility] 1.114 350.1.13.10 4.2.7.2.686 [id number] [facility] 2020-03-16 13:45:00 2020-03-16 13:45:00 Outpatient R CARL VICENTE [facility] [id number] [facility] 2020-03-16 00:00:00 2020-03-16 00:00:00 Patient Secure Msg Doctor Unassigned, Jane Lew [facility] 1.0.114 350.1.13.10 4.2.7.2.686 [id number] [facility] 2020-03-16 00:00:00 2020-03-16 00:00:00 Orders Only Doctor Unassigned, Jane Lew [facility] 1..114 350.1.13.10 4.2.7.2.686 [id number] [facility] 2020-03-16 00:00:00 2020-03-16 00:00:00 Prep For Surgery Carl Vicente Bautista [facility] 1..114 350.1.13.10 4.2.7.2.686 [id number] [facility] 2020-03-14 00:00:00 2020-03-14 00:00:00 Patient Secure Msg Doctor Unassigned, Jane Lew [facility] 1..114 350.1.13.10 4.2.7.2.686 [id number] [facility] 2020-03-08 00:00:00 2020-03-08 00:00:00 Patient Secure Msg Doctor Unassigned, Jane Lew [facility] 1.0.114 350.1.13.10 4.2.7.2.686 [id number] [facility] 2020-03-04 00:00:00 2020-03-04 00:00:00 Telephone Thong Bautista [facility] 1..114 350.1.13.10 4.2.7.2.686 [id number] [facility] 2020-03-03 13:53:18 2020-03-03 23:59:00 [address] Encounter Caro Karlie [facility] 1.2.840.114 350.1.13.10 4.2.7.2.686 [id number] [facility] 2020-03-03 15:00:00 2020-03-03 15:00:00 Outpatient R [facility] [id number] [facility] 2020-03-03 13:51:31 2020-03-03 13:52:00 Hospital Encounter [facility] 1.2.840.114 350.1.13.10 4.2.7.2.686 [id number] [facility] 2020-03-03 00:00:00 2020-03-03 00:00:00 Patient Secure Msg Doctor Unassigned, Jane Lew [facility] BUILDING 1.2840.114 350.1.13.10 4.2.7.2.686 [id number] [facility] 2020-03-02 00:00:00 2020-03-02 00:00:00 Patient Secure Msg iLlyThong Jonny [facility] OFFICE BUILDING ONE 1.284.114 350.1.13.10 4.2.7.2.686 [id number] [id number] [facility] 2020-03-01 15:16:00 2020-03-01 16:05:01 Office Visit Carl Vicente [facility] Building 1.2840.114 350.1.13.10 4.2.7.2.686 [id number] [facility] 2020-03-01 15:30:00 2020-03-01 15:30:00 Outpatient R CARL VICENTE [facility] [id number] [facility] 2020-03-01 14:00:57 2020-03-01 15:09:44 Office Visit Digna Jackson [facility] Building 1.2.840.114 350.1.13.10 4.2.7.2.686 [id number] [facility] 2020-03-01 00:00:00 2020-03-01 00:00:00 Prep For Surgery [place] Felicitas Annalee [facility] Building 1.2.840.114 350.1.13.10 4.2.7.2.686 [id number] [facility] 2020-03-01 00:00:00 2020-03-01 00:00:00 Ref[facility]ong [facility] Office Building One 1.840.114 350.1.13.10 4.2.7.2.686 [id number] 044 [id number] [facility] 2020-03-01 00:00:00 2020-03-01 00:00:00 Orders Only Doctor Unassigned, Jane Lew [facility] 1.2.840.114 350.1.13.10 4.2.7.2.686 [id number] [facility] 2020-02-29 00:00:00 2020-02-29 00:00:00 Patient Secure Msg LilyThong [facility] OFFICE BUILDING ONE 1.2840.114 350.1.13.10 4.2.7.2.686 [id number] 044 [id number] [facility] 2020-02-29 00:00:00 2020-02-29 00:00:00 Patient Secure Msg Digna Jackson [facility] 1.2.840.114 350.1.13.10 4.2.7.2.686 [id number] [facility] 2020-02-29 00:00:00 2020-02-29 00:00:00 Telephone Thong Bautista [facility] Office Building One 1.114 350.1.13.10 4.2.7.2.686 [id number] 044 [id number] [facility] 2020-02-29 00:00:00 2020-02-29 00:00:00 Patient Secure Msg Carl Vicente [facility] Building 1.114 350.1.13.10 4.2.7.2.686 [id number] [facility] 2020-02-29 00:00:00 2020-02-29 00:00:00 Refill Thong Bautista [facility] Office Building One 1. 350.1.13.10 4.2.7.2.686 [id number] [facility] 2020-02-25 10:25:13 2020-02-25 10:40:13 Office Visit Kamala Kebede [facility] Surgical Specialti [facility] 1.114 350.1.13.10 4.2.7.2.686 [id number] [facility] 2020-02-25 10:15:00 2020-02-25 10:15:00 Outpatient R KAMALA KEBEDE [facility] [id number] [facility] 2020-02-24 00:00:00 2020-02-24 00:00:00 Patient Secure Msg Doctor Unassigned, Jane Lew [facility] BUILD[facility] 1.114 350.1.13.10 4.2.7.2.686 [id number] [facility] 2020-02-22 15:52:44 2020-02-22 16:48:53 Urgent Care Provider, [facility] Urgent Care Randi Sung [facility] Office Building One 1.2.840.114 350.1.13.10 4.2.7.2.686 [id number] [facility] 2020-02-22 16:20:00 2020-02-22 16:20:00 Outpatient Lilia RANDI SUNG [facility] [id number] [facility] 2020-02-22 00:00:00 2020-02-22 00:00:00 Patient Secure Msg Thong Bautista [facility] OFFICE BUILDING ONE 1.114 350.1.13.10 4.2.7.2.686 [id number] 044 [id number] [facility] 2020-02-22 00:00:00 2020-02-22 00:00:00 Telephone Lily Thong [facility] Office Building One 1.114 350.1.13.10 4.2.7.2.686 [id number] [id number] [facility] 2020-02-19 00:00:00 2020-02-19 00:00:00 Patient Secure Msg Doctor Unassigned, Jane Lew [facility] BUILD[facility] 1.840.114 350.1.13.10 4.2.7.2.686 [id number] [facility] 2020-02-19 00:00:00 2020-02-19 00:00:00 Telephone Karlie Elizondo [facility] Building 1..114 350.1.13.10 4.2.7.2.686 [id number] [facility] 2020-02-19 00:00:00 2020-02-19 00:00:00 Telephone JacksonkellyThong colon [facility] Office Building One 1.114 350.1.13.10 4.2.7.2.686 [id number] [facility] 2020-02-18 12:45:00 2020-02-18 23:59:00 Hospital Encounter Thong Bautista [facility] 1.2840.114 350.1.13.10 4.2.7.2.686 [id number] [facility] 2020-02-18 00:00:00 2020-02-18 00:00:00 Outpatient R THONG BAUTISTA [facility] [id number] [facility] 2020-02-17 11:10:06 2020-02-17 11:25:06 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, [facility] Lily [facility] Building 1.2840.114 350.1.13.10 4.2.7.2.686 [id number] [facility] 2020-02-17 10:45:00 2020-02-17 10:45:00 Outpatient R [facility] [id number] [facility] 2020-02-17 00:00:00 2020-02-17 00:00:00 Telephone Thong Bautista [facility] Office Building One 1.2840.114 350.1.13.10 4.2.7.2.686 [id number] [id number] [facility] 2020-02-17 00:00:00 2020-02-17 00:00:00 Telephone Thong Bautista [facility] Office Building One 1.2840.114 350.1.13.10 4.2.7.2.686 [id number] 044 [id number] [facility] 2020-02-16 14:01:54 2020-02-16 16:37:21 Office Visit Karlie Elizondo [facility] Building 1.2.840.114 350.1.13.10 4.2.7.2.686 [id number] [facility] 2020-02-16 13:45:00 2020-02-16 13:45:00 Outpatient R KARLIE ELIZONDO [facility] [id number] [facility] 2020-02-10 00:00:00 2020-02-10 00:00:00 Patient Secure Msg Thong Bautista [facility] OFFICE BUILDING ONE 1.114 350.1.13.10 4.2.7.2.686 [id number] [id number] [facility] 2020-01-27 00:00:00 2020-01-27 00:00:00 Telephone Thong Bautista [facility] Office Building One 1.114 350.1.13.10 4.2.7.2.686 [id number] 044 [id number] [facility] 2020-01-27 00:00:00 2020-01-27 00:00:00 Orders Only Doctor Unassigned, Jane Lew [facility] 1.114 350.1.13.10 4.2.7.2.686 [id number] [facility] 2020-01-13 13:58:09 2020-01-13 14:35:39 Office Visit Thong Bautista [facility] Office Building One 1.114 350.1.13.10 4.2.7.2.686 [id number] [facility] 2020-01-13 14:00:00 2020-01-13 14:00:00 Outpatient R LILY THONG [facility] [id number] [facility] 2020-01-07 00:00:00 2020-01-07 00:00:00 Patient Secure Msg Thong Bautista [facility] OFFICE BUILDING ONE 1.114 350.1.13.10 4.2.7.2.686 [id number] [facility] 2019-12-04 00:00:00 2019-12-04 00:00:00 Patient Secure Msg Jacksonelka, Thong [facility] OFFICE BUILDING ONE 1.2840.114 350.1.13.10 4.2.7.2.686 [id number] [facility] 2019-12-01 00:00:00 2019-12-01 00:00:00 Patient Secure Thong Fields [facility] OFFICE BUILDING ONE 1.2840.114 350.1.13.10 4.2.7.2.686 [id number] 044 [id number] [facility] 2019-11-03 00:00:00 2019-11-03 00:00:00 Patient Secure Msg Bautista [facility] OFFICE BUILDING ONE 1.2840.114 350.1.13.10 4.2.7.2.686 [id number] [facility] 2019-10-25 00:00:00 2019-10-25 00:00:00 Refill Lily [facility] Office Building One 1.2840.114 350.1.13.10 4.2.7.2.686 [id number] [facility] 2019-08-27 00:00:00 2019-08-27 00:00:00 Refill Lily [facility] Office Building One 1.2840.114 350.1.13.10 4.2.7.2.686 [id number] [facility] 2019-08-21 00:00:00 2019-08-21 00:00:00 Telephone Lily [facility] Office Building One 1.2840.114 350.1.13.10 4.2.7.2.686 [id number] [facility] 2019-08-19 15:00:00 2019-08-19 15:00:00 Outpatient R VESELKA, THONG [facility] [id number] [facility] 2019-08-19 12:12:52 2019-08-19 12:27:52 Telemedici ne Visit Thong Bautista [facility] Building 1.2840.114 350.1.13.10 4.2.7.2.686 [id number] [facility] 2019-08-19 10:35:17 2019-08-19 10:50:17 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, 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 Thong Bautista [facility] Building 1.284.114 350.1.13.10 4.2.7.2.686 [id number] [facility] 2019-08-19 09:00:00 2019-08-19 09:00:00 Outpatient R [facility] [id number] [facility] 2019-08-18 00:00:00 2019-08-18 00:00:00 Patient Secure Msg Doctor Unassigned, Jane Lew [facility] Building 1.84.114 350.1.13.10 4.2.7.2.686 [id number] 044 [id number] [facility] 2019-07-28 00:00:00 2019-07-28 00:00:00 Refill Lily [facility] Office Building One 1.84.114 350.1.13.10 4.2.7.2.686 [id number] [facility] 2019-07-24 00:00:00 2019-07-24 00:00:00 Refill Thong Bautista [facility] Office Building One 1.84.114 350.1.13.10 4.2.7.2.686 [id number] 044 [id number] [facility] 2019-07-15 00:00:00 2019-07-15 00:00:00 Refill Thong Bautista [facility] Office Building One 1.840.114 350.1.13.10 4.2.7.2.686 [id number] 044 [id number] [facility] 2019-07-14 00:00:00 2019-07-14 00:00:00 Refill Thong Bautista [facility] Office Building One 1.840.114 350.1.13.10 4.2.7.2.686 [id number] 044 [id number] [facility] 2019-07-09 11:03:56 2019-07-09 11:43:32 Office Visit Lily [facility] Office Building One 1..114 350.1.13.10 4.2.7.2.686 [id number] [id number] [facility] 2019-07-09 11:30:00 2019-07-09 11:30:00 Outpatient R LILY [facility] [id number] [facility] 2019-07-09 00:00:00 2019-07-09 00:00:00 Telephone Lily [facility] Office Building One 1..114 350.1.13.10 4.2.7.2.686 [id number] [facility] 2019-07-09 00:00:00 2019-07-09 00:00:00 Refill Lily [facility] Office Building One 1.0.114 350.1.13.10 4.2.7.2.686 [id number] [facility] 2019-07-08 00:00:00 2019-07-08 00:00:00 Patient Secure Msitz Bautista [facility] Office Building One 1.0.114 350.1.13.10 4.2.7.2.686 [id number] [id number] [facility] 2019-07-08 00:00:00 2019-07-08 00:00:00 Patient Secure Msg Thong Bautista [facility] Office Building One 1.840.114 350.1.13.10 4.2.7.2.686 [id number] [facility] 2019-07-08 00:00:00 2019-07-08 00:00:00 Patient Secure Msg Thong Bautista [facility] Office Building One 1.0.114 350.1.13.10 4.2.7.2.686 [id number] [facility] 2019-07-07 00:00:00 2019-07-07 00:00:00 Refill Lily [facility] Office Building One 1.840.114 350.1.13.10 4.2.7.2.686 [id number] [facility] 2019-07-03 00:00:00 2019-07-03 00:00:00 Telephone Lily [facility] Office Building One 1..114 350.1.13.10 4.2.7.2.686 [id number] [facility] 2019-07-03 00:00:00 2019-07-03 00:00:00 Patient Secure Msg Thong Bautista [facility] Office Building One 1.0.114 350.1.13.10 4.2.7.2.686 [id number] [id number] [facility] 2019-07-02 11:37:47 2019-07-02 11:52:47 Office Visit Lily [facility] Office Building One 1.0.114 350.1.13.10 4.2.7.2.686 [id number] [facility] 2019-07-02 11:30:00 2019-07-02 11:30:00 Outpatient THONG CALL [facility] [id number] [facility] 2019-07-02 00:00:00 2019-07-02 00:00:00 Orders Only Doctor Unassigned, Jane Lew [facility] 1.114 350.1.13.10 4.2.7.2.686 [id number] [facility] 2019-06-28 00:00:00 2019-06-28 00:00:00 Refill Lily [facility] Office Building One 1.114 350.1.13.10 4.2.7.2.686 [id number] [id number] [facility] 2019-06-11 00:00:00 2019-06-11 00:00:00 Refill Thong Bautista [facility] Office Building One 1.114 350.1.13.10 4.2.7.2.686 [id number] [facility] 2019-06-11 00:00:00 2019-06-11 00:00:00 Refill Karoline Archer [facility] 1.114 350.1.13.10 4.2.7.2.686 [id number] [facility]
[2023-04-09 13:21] VITALS: BMI 35.5
[2023-04-09] MEDS: CLINDAMYCIN 900MG/D5W 900 MG/50 ML IVPB IV SCH ×2 (14:37→21:30)
[2023-04-09] MEDS: HYDROCODONE/APAP 7.5/325 MG TAB PO PRN ×3 (14:43→22:30)
[2023-04-09] MEDS ORDERED: MORPHINE 2 MG/ML SYR IV ONE (21:04)
[2023-04-10] MEDS: HYDROCODONE/APAP 7.5/325 MG TAB PO PRN ×3 (04:19→13:27)
[2023-04-10] MEDS ORDERED: ENOXAPARIN 30 MG/0.3 ML SQ SCH (06:00)
[2023-04-10 07:04] LABS: Hematocrit 37.6 % (36.0-45.0)
[2023-04-10 09:56] VITALS: O2SAT 97
[2023-04-10 11:42] VITALS: BP 151/74; TEMP 97.4
--- NOTE | 2023-04-10 13:21 | P.CNS ---
Date of Consult: 04/09/23 Reason for Consult: Medical management Requesting Physician: Caleb Castillo Chief Complaint: Right knee replacement History of Present Illness: Patient is a 58-year-old female who came to the hospital for a right knee replacement. Patient has done well in the postoperative period. Patient looks to be clinically stable. Patient will be admitted for observation. Patient has a history of medical problems including asthma and hypertension. Patient also has severe osteoarthritis. She says she was not really doing much getting around prior to the surgery. The pain was so severe that she could not really do much of anything. She decided to go ahead and proceed with surgery. Patient was medically and surgically cleared as an outpatient. Currently she is doing well postoperatively. Allergies amoxicillin [From Augmentin] Allergy (Verified 04/09/23 06:53) Hives clavulanic acid [From Augmentin] Allergy (Verified 04/09/23 06:53) Hives Home Medications: Pantoprazole [Protonix Tab*] 1 tab PO DAILY 11/12/21 Buproprion S.r. [Wellbutrin SR] 300 mg PO DAILY 06/27/22 Ergocalciferol (Vitamin D2) [Vitamin D2] 1,250 mcg PO EVERY 7TH DAY 06/27/22 Fluticasone/Salmeterol [Advair Hfa 115-21 Mcg Inhaler] 12 gm IH BID 06/27/22 Montelukast [Singulair] 10 mg PO DAILY 06/27/22 Albuterol Inhaler [Ventolin Inhaler] 2 puff IH Q6H PRN 01/30/23 Estradiol/Progesterone [Bijuva 1 mg-100 mg Capsule] 1 each PO DAILY 01/30/23 Gallbladder Enzymes 1 tab PO DAILY 01/30/23 Losartan/Hydrochlorothiazide [Losartan-Hctz 100-12.5 mg Tab] 1 each PO DAILY 01/30/23 Magnesium Glycinate [Magnesium Bisglycinate Chelate] 500 gm MC DAILY 01/30/23 Leo-3S/Dha/Epa/Fish Oil [Fish Oil Leo-3 Softgel] 1 each PO DAILY 01/30/23 Turmeric Root Extract [Turmeric Curcumin] 500 mg PO DAILY 01/30/23 hydroCHLOROthiazide [Hydrodiuril] 25 mg PO DAILY 01/30/23 - Past Medical/Surgical History Diabetic: No -: Asthma, -: HTN -: Depression -: section x3 -: Hysterectomy, total -: meniscus Sx - Family History Mother Medical History: Cancer - Social History Smoking Status: Former smoker, Never smoker Alcohol use: Yes CD- Drugs: No Place of Residence: Home Review of Systems 10-point ROS is otherwise unremarkable Physical Examination Temp Pulse Resp BP Pulse Ox 97.4 F 90 17 151/74 H 98 04/10/23 11:41 04/10/23 11:41 04/10/23 11:41 04/10/23 11:41 04/10/23 11:41 General: Alert, In no apparent distress, Oriented x3 HEENT: Atraumatic, PERRLA, Mucous membr. moist/pink, EOMI, Sclerae nonicteric Neck: Supple, 2+ carotid pulse no bruit, No LAD, Without JVD or thyroid abnormality Respiratory: Clear to auscultation bilaterally, Normal air movement Cardiovascular: Regular rate/rhythm, Normal S1 S2 Gastrointestinal: Normal bowel sounds, No tenderness Musculoskeletal: Other (Right knee with passive range of motion) Integumentary: No rashes Neurological: Normal speech, Normal tone, Sensation intact, Normal affect, Abnormal gait, Abnormal strength Lymphatics: No axilla or inguinal lymphadenopathy Laboratory Data (last 24 hrs) 04/10/23 06:22 Hgb 12.4 Hct 37.6 - Problems (1) Status post total right knee replacement Current Visit: Yes Status: Acute (2) Hypertension Current Visit: Yes Status: Acute (3) Asthma Current Visit: Yes Status: Acute (4) Depression Current Visit: Yes Status: Acute Conclusions/ Impression: Plan: 1. Continue with pain control 2. Continue with physical therapy evaluation 3. DVT prophylaxis 4. Resume antihypertensives 5. Outpatient physical therapy arrangements 6. Inhaler therapy as needed 7. Resume antidepressant 8. GI DVT prophylaxis Critical Care: No Time Spent Managing Pts care (In Minutes): 30
--- NOTE | 2023-04-10 13:22 | P.DS ---
Discharge Date: 04/10/23 Disposition: ROUTINE DISCHARGE Discharge Condition: GOOD Reason for Admission: Right knee replacement - Problems (1) Status post total right knee replacement Current Visit: Yes Status: Acute (2) Hypertension Current Visit: Yes Status: Acute (3) Asthma Current Visit: Yes Status: Acute (4) Depression Current Visit: Yes Status: Acute Brief History of Present Illness: Patient is a 58-year-old female who came to the hospital for a right knee replacement. Patient has done well in the postoperative period. Patient looks to be clinically stable. Patient will be admitted for observation. Patient has a history of medical problems including asthma and hypertension. Patient also has severe osteoarthritis. She says she was not really doing much getting around prior to the surgery. The pain was so severe that she could not really do much of anything. She decided to go ahead and proceed with surgery. Patient was medically and surgically cleared as an outpatient. Currently she is doing well postoperatively. Hospital Course: Patient has done well during the postoperative period. Patient denies any new complaints. Patient wound is stable for discharge. Aquacel will be placed prior to discharge. Patient has been set up with DVT prophylaxis and pain medication by orthopedic. Outpatient physical therapy is also arranged. Patient is stable for discharge home. Vital Signs/Physical Exam: Temp Pulse Resp BP Pulse Ox 97.4 F 90 17 151/74 H 98 04/10/23 11:41 04/10/23 11:41 04/10/23 11:41 04/10/23 11:41 04/10/23 11:41 General: Alert, In no apparent distress, Oriented x3 Laboratory Data at Discharge: Hgb 12.4 g/dL (12.0-15.0) 04/10/23 06:22 Hct 37.6 % (36.0-45.0) 04/10/23 06:22 Home Medications: Pantoprazole [Protonix Tab*] 1 tab PO DAILY 11/12/21 Buproprion S.r. [Wellbutrin SR] 300 mg PO DAILY 06/27/22 Ergocalciferol (Vitamin D2) [Vitamin D2] 1,250 mcg PO EVERY 7TH DAY 06/27/22 Fluticasone/Salmeterol [Advair Hfa 115-21 Mcg Inhaler] 12 gm IH BID 06/27/22 Montelukast [Singulair] 10 mg PO DAILY 06/27/22 Albuterol Inhaler [Ventolin Inhaler] 2 puff IH Q6H PRN 01/30/23 Estradiol/Progesterone [Bijuva 1 mg-100 mg Capsule] 1 each PO DAILY 01/30/23 Gallbladder Enzymes 1 tab PO DAILY 01/30/23 Losartan/Hydrochlorothiazide [Losartan-Hctz 100-12.5 mg Tab] 1 each PO DAILY 01/30/23 Magnesium Glycinate [Magnesium Bisglycinate Chelate] 500 gm MC DAILY 01/30/23 [employer]-3S/Dha/Epa/Fish Oil [Fish Oil [employer]-3 Softgel] 1 each PO DAILY 01/30/23 Turmeric Root Extract [Turmeric Curcumin] 500 mg PO DAILY 01/30/23 hydroCHLOROthiazide [Hydrodiuril] 25 mg PO DAILY 01/30/23 Physician Discharge Instructions: -DC IV and DC home -Follow-up with PCP in 1 to 2 weeks -Follow-up with ORTHOPEDICS in 1 to 2 weeks -Please call Dr. Salcido at [phone] if any questions regarding hospital stay -Please call nursing station at [phone] if any nursing or medication questions -Return to the emergency room if symptoms worsen Diet: Regular Activity: Fall precautions Followup: Caleb Castillo MD [ACTIVE - CAN ADMIT] - (follow up in 2 weeks, call to wilman robles an appointment) Linda Benton FNP [Primary Care Provider] - 1-2 Weeks (call giovanni robles an appointment) Time spent managing pt's care (in minutes): 20
== END 2023-04-10 14:15 | disposition home or self-care (01) ==
LOC: OR 05:35 → 4TH 12:19
PROVIDERS: ADMIT Orthopaedic Surgery; ATTEND Orthopaedic Surgery
PROC: 0SRC069 Replacement of Right Knee Joint with Oxidized Zirconium on Polyethylene Synthetic Substitute, Cemented, Open Approach (ICD-10-PCS; principal; 2023-04-09 07:00)
DX: M17.11 Unilateral primary osteoarthritis, right knee (principal); I10 Essential (primary) hypertension; J45.909 Unspecified asthma, uncomplicated; F32.A Depression, unspecified; Z88.1 Allergy status to other antibiotic agents
CPT/HCPCS: 36415; 88304; 88311; 85018; 85014; 81003; 97110 ×3; 97116 ×2; 97139; 97161; 97530; 94010; 27447; J3475; J2704; J2001 ×3; J1650; J2250; J3010 ×2; J1100; J2270; J0171; J1170 ×2; J2405; J7120 ×2; C1776 ×2; G0378; G0379